=== PATIENT | female | born 1980 | race African-American/Black ===

== ENCOUNTER 2019-03-06 14:18 | Emergency (ER) | payer MEDICAID, OTHER ==
[~2019-03-06] VITALS: Ht 170.2 cm; Wt 57.6 kg
[~2019-03-06 14:18] MED LIST: KEFLEX500 MG ORAL
[2019-03-06] MEDS ORDERED: BENADRYL25 MG ORAL (14:26)
[2019-03-06 14:40] VITALS: BP 128/77
--- NOTE | 2019-03-06 14:40 | NUR ---
ED Nurse Note: pt walked in due to epicagstric pain started to get worse last night, pt stated she took many remedies for stomach pain but nothing helped. pt stated she was diagnosed with gastritis 5 years ago and now is the worse pain she ever felt on her stomach. seen by heidy bocanegra. will continue to monitor.
[2019-03-06] MEDS ORDERED: Isovue-300 100ml vial INJ PRN (14:45)
--- NOTE | 2019-03-06 14:50 | NUR ---
ED Nurse Note: with new order from heidy bocanegra. pt able to give urine sample and sent to lab. iv started on left ac. will continue to monitor.
--- NOTE | 2019-03-06 14:56 | NUR ---
ED Nurse Note: voice and data technician on bedside
--- NOTE | 2019-03-06 15:10 | NUR ---
ED Nurse Note: pt medicated as ordered. pt able to tolerate. will continue to monitor.
[2019-03-06 15:15] LABS: APPEARANCE,URINE CLEAR; BILIRUBIN, URINE NEGATIVE (NEGATIVE); COLOR,URINE BROWN; GLUCOSE, URINE (UA) NEGATIVE (NEGATIVE); KETONES,URINE 2+ (NEGATIVE); LEUKOCYTE ESTERASE ,URINE 1+ (NEGATIVE); NITRITE,URINE NEGATIVE (NEGATIVE); PH,URINE 9 (4.5-8.0); PROTEIN,URINE 2+ (NEGATIVE); UROBILINOGEN,URINE 4 MG/DL (0.0-1.0)
--- NOTE | 2019-03-06 15:16 | Diagnostic Imaging Report ---
Indication: Chest pain Technique: One view of the chest Comparison: 05/13/2005 Findings: Lungs and pleural spaces are clear. Heart size is normal. No significant interim change Impression: No acute process
--- NOTE | 2019-03-06 15:17 | Emergency Room Report ---
History of Present Illness General Chief Complaint: Abdominal Pain Source: Patient (Lupe Arellano) Present Illness HPI 38-year-old female with history of chronic heavy tobacco smoker x10 years as well as drinking every night for the past 2 years to treat her anxiety here complaining of 1 day of burning sensation in the epigastric and right upper quadrant region. Patient reports that she had fried noodles last night however denies it being spicy and acidic. Patient reports that she drinks at least 2 glasses of red wine every night and has been doing so for the past 2 years to treat her anxiety ever since her psychiatrist stopped giving her Ativan. Complains of nausea and acid reflux however denies loss of vomiting she reports that she consumed baking soda and water this morning in order to treat her symptoms and vomited immediately however denies bloody emesis denies diarrhea and constipation denies blood in stool. Denies fever and chills, recent travel , drug use, and does not take any daily medication other than herbal vitamins. Denies chest pain, shortness of breath, palpitation, dizziness and headache. Denies urinary symptoms and has regular menses. (Lupe Arellano) Allergies: Coded Allergies: No Known Allergies (Unverified , 07/08/16) Patient History Past Medical History: see triage record Past Surgical History: unable to obtain Pertinent Family History: none Social History: Reports: smoking - 8 cigars/day x 10 years, alcohol use - Alcohol consumption every night x2 years Last Menstrual Period: 02/10/19 Now: No Immunizations: UTD Reviewed Nursing Documentation: PMH: Agreed; PSxH: Agreed (Lupe Arellano) Nursing Documentation-PMH Past Medical History: No History, Except For Hx Gastrointestinal Problems: Yes - gastritis History Of Psychiatric Problem: Yes - anxiety, PTSD (Lupe Arellano) Review of Systems All Other Systems: negative except mentioned in HPI (Lupe Arellano) Physical Exam Vital Signs Date Time Temp Pulse Resp B/P (MAP) Pulse Ox O2 Delivery O2 Flow Rate FiO2 03/06/19 14:21 98.1 85 17 128/77 (94) 99 Room Air Sp02 EP Interpretation: reviewed, normal General Appearance: normal inspection, well appearing, no apparent distress, alert Eyes: left eye scleral icterus ENT: normal ENT inspection, hearing grossly normal, normal pharynx Neck: normal inspection, full range of motion, supple, thyroid normal Respiratory: normal inspection, chest non-tender, lungs clear, normal breath sounds, no rhonchi, no wheezing Gastrointestinal: no hernia, no pulsatile mass, distended, guarding - Epigastric and right upper quadrant however negative Álvarez's sign and negative McBurney's and Rovsing sign Rectal: deferred Genitourinary: no CVA tenderness Musculoskeletal: normal inspection, back normal Neurologic: normal inspection, alert, oriented x3, responsive Psychiatric: normal inspection, judgement/insight normal Skin: no rash, palpation normal, jaundice Lymphatic: normal inspection, no adenopathy (Lupe Arellano) Medical Decision Making PA Attestation All diagnoses and treatment plans were reviewed and discussed with my supervising physician Dr. Rey (Lupe Arellano) Diagnostic Impression: Primary Impression: Abdominal pain Qualified Codes: R10.13 - Epigastric pain Additional Impressions: Cirrhosis Qualified Codes: K70.31 - Alcoholic cirrhosis of liver with ascites Esophageal varices Qualified Codes: I85.10 - Secondary esophageal varices without bleeding Pancreatic lesion Alcohol abuse ER Course 38-year-old female with history of chronic heavy tobacco smoker x10 years as well as drinking every night for the past 2 years to treat her anxiety here complaining of 1 day of burning sensation in the epigastric and right upper quadrant region. Patient reports that she had fried noodles last night however denies it being spicy and acidic. Patient reports that she drinks at least 2 glasses of red wine every night and has been doing so for the past 2 years to treat her anxiety ever since her psychiatrist stopped giving her Ativan. Complains of nausea and acid reflux however denies loss of vomiting she reports that she consumed baking soda and water this morning in order to treat her symptoms and vomited immediately however denies bloody emesis denies diarrhea and constipation denies blood in stool. Denies fever and chills, recent travel , drug use, and does not take any daily medication other than herbal vitamins. Denies chest pain, shortness of breath, palpitation, dizziness and headache. Denies urinary symptoms and has regular menses. Ddx considered but are not limited to: appendicitis, cholycisitis, gastritis, gasthroentritis, UTI, pylonephritis, SBO, diverticulitis, influenza with GI manifestation, IA, Vital signs: are WNL, pt. is afebrile H&PE are most consistent with: Abdominal pain, cirrhosis, esophageal varices, pancreatic lesions, alcohol abuse ORDERS: abdominal CT, abdominal pain set, EKG, ED INTERVENTIONS: IV fluids, Zofran, Pepcid, thiamine Patient was admited with diagnosis of abdominal pain, cirrhosis, esophageal varices, pancreatic lesions, alcohol abuse under the supervision of Dr. Rey pt stable at time of admission EtOH of 29, elevated AST, alk phos, elevated PT and PTT (Lupe Arellano) ER Course Please see above note. Patient examined by me. Discussed the need for hospitalization with patient. I agree with treatment plan. Also thiamine and vitamin K added. Presented to Dr. Shah and accepted in transfer. (Eh Rey MD) EKG Diagnostic Results Rate: normal Rhythm: NSR ST Segments: no acute changes (Lupe rAellano) Chest X-Ray Diagnostic Results Chest X-Ray Diagnostic Results : Chest X-Ray Ordered: Yes # of Views/Limited/Complete: 1 View Indication: Chest Pain EP Interpretation: Yes PA Xray: Interpretation reviewed, by supervising MD, and agrees with findings. Interpretation: no consolidation, no effusion, no pneumothorax, no acute cardiopulmonary disease Impression: No acute disease Electronically Signed by: lupe WATSON Scribe Text no acute process (Lupe Arellano) Chest X-Ray Diagnostic Results : Electronically Signed by: Gilson Pollard documentation of Xray reviewed by me and is accurate, Eh Rey MD (Eh Rey MD) CT/MRI/US Diagnostic Results CT/MRI/US Diagnostic Results : Imaging Test Ordered: Abdominal CT pelvis with contrast Impression Cholelithiasis, evidence of portal venous hypertension, enlarged liver diffusely heterogeneous, diffuse attenuation lesions within pancreatic head and cystic lesions in the pancreas, slightly infiltration of the fat surrounding pancreatic head (Lupe Arellano) Last Vital Signs Date Time Temp Pulse Resp B/P (MAP) Pulse Ox O2 Delivery O2 Flow Rate FiO2 03/06/19 14:40 98.1 85 17 128/77 99 Room Air (Lupe Arellano) Last Vital Signs Date Time Temp Pulse Resp B/P (MAP) Pulse Ox O2 Delivery O2 Flow Rate FiO2 03/06/19 19:55 98.2 70 18 132/80 98 Room Air Status: improved (Eh Rey MD) Disposition: XFER SHT-TRM HOSP Condition: Serious Referrals: [facility],REFERR[facility] (PCP) Lupe Arellano Mar 06, 2019 15:17 Eh Rey MD Mar 06, 2019 17:36
[2019-03-06 15:20] LABS: HEMATOCRIT 37.5 % (37.0-47.0); HEMOGLOBIN 12.3 G/DL (12.0-16.0); MEAN CORPUSCULAR VOLUME 117 FL (80-99); PLATELET COUNT 102 K/UL (150-450); RED BLOOD COUNT 3.22 M/UL (4.20-5.40); RED CELL DISTRIBUTION WIDTH 13.4 % (11.6-14.8); WHITE BLOOD COUNT 7.7 K/UL (4.8-10.8)
[2019-03-06 15:25] LABS: ANION GAP 13 mmol/L (5-15); BLOOD UREA NITROGEN 3 mg/dL (7-18); CARBON DIOXIDE 29 MMOL/L (21-32); CHLORIDE 98 MMOL/L (98-107); CREATININE 0.6 MG/DL (0.55-1.30); POTASSIUM 3.1 MMOL/L (3.5-5.1); SODIUM 139 MMOL/L (136-145)
[2019-03-06 15:31] LABS: INR 1.2 (0.9-1.1)
[2019-03-06 15:40] LABS: ALANINE AMINOTRANSFERASE 26 U/L (12-78); ALBUMIN 3.9 G/DL (3.4-5.0); ALBUMIN/GLOBULIN RATIO 0.8 (1.0-2.7); ALKALINE PHOSPHATASE 187 U/L (46-116); ASPARTATE AMINO TRANSFERASE 165 U/L (15-37); BILIRUBIN,TOTAL 1.8 MG/DL (0.2-1.0); CKMB 0.6 NG/ML (0.0-3.6)
[2019-03-06 15:42] LABS: BILIRUBIN,DIRECT 0.7 MG/DL (0.0-0.3)
[2019-03-06 15:50] VITALS: BP 125/79
--- NOTE | 2019-03-06 16:40 | NUR ---
ED Nurse Note: pt went to ct with tech
--- NOTE | 2019-03-06 16:46 | NUR ---
ED Nurse Note: pt went back from ct with tech
[2019-03-06 17:30] VITALS: BP 120/80
[2019-03-06] MEDS ORDERED: Thiamine 100mg tab ORAL ONE (17:30)
--- NOTE | 2019-03-06 17:30 | Diagnostic Imaging Report ---
Clinical Indication: Abdominal pain, burning sensation in epigastric and right upper quadrant region Technique: Patient given oral contrast. IV administration nonionic contrast. Venous phase spiral acquisition obtained through the abdomen and pelvis. Multiplanar reconstructions were generated. Total dose length product 547.94 mGycm. CTDIvol(s) 9.91 mGy. Dose reduction achieved using automated exposure control Comparison: none Findings: The liver is diffusely enlarged. It is diffusely heterogeneous, with ill-defined nodular areas of slightly low-attenuation throughout. The pancreas demonstrates 2 adjacent low-attenuation lesions within the pancreatic head/uncinate. The larger of these is located more caudad, measures 3 cm in diameter, demonstrates slightly higher than fluid attenuation. The more cephalad measures 1.6 cm in diameter, is located immediately adjacent to the larger lesion, and demonstrates fluid attenuation. There is slight infiltration of the fat immediately adjacent to the pancreatic head and evidence of slight amount of phlegmon tracking caudad along the anterior right Gerota's fascia. The pancreatic body and tail demonstrate normal morphology. The gallbladder contains 2 small gallstones. There is a slight amount of pericholecystic fluid but the wall does not appear to be thickened. The common bile duct is upper slightly ectatic, measuring up to 7 mm in diameter, with slight tapering as noted traverses past the above-mentioned pancreatic lesions, which are located medial to it. Unusual varices are seen extending off of the inferior mesenteric vein, through the mesenteric root, and connecting to the inferior vena cava just below the left renal vein orifice. There is also generalized branch enlargement of the inferior mesenteric vein. The splenic and portal veins are patent. The spleen, adrenals, kidneys are unremarkable. The uterus and adnexal structures are unremarkable. No pelvic mass or adenopathy demonstrated. The appendix is not definitely identified, but no findings to suggest acute appendicitis are evident. Contrast is seen throughout the entirety of the small bowel, extends as far distally in the colon as the transverse colon. Small bowel loops are prominent. There is no small bowel wall thickening. There is congestion of the mesenteric root. No evidence of diverticulosis or diverticulitis. A small amount of free fluid is seen within the pelvis and over the dome of the liver. No free intraperitoneal gas. The included lung bases demonstrate minimal posterior dependent atelectatic changes. The bones are unremarkable. Impression: Slight infiltration of the fat surrounding the pancreatic head and evidence of a small amount of phlegmon tracking inferiorly from the pancreas. This could indicate isolated pancreatitis of the pancreatic head. Correlate with clinical and laboratory findings 2 low-attenuation lesions within the pancreatic head, one of which appears cystic, the other which is slightly higher than fluid attenuation. Main differential considerations include multi focal/multilobulated pancreatic neoplasm, pancreatic pseudocysts, or combination of both Enlarged liver, diffusely heterogeneous. Heterogeneity could be related to geographic fatty infiltration or multinodular cirrhotic change. The possibility of diffuse infiltration with neoplasm should also be considered. Evidence of portal venous hypertension, with unusual varices coming off of the inferior mesenteric vein and trace free intraperitoneal fluid as well as mesenteric congestion Cholelithiasis Mild ectasia of the extrahepatic bile ducts, could the baseline for this patient or could indicate mild extrinsic compression by the pancreatic abnormalities Findings discussed by phone with Dr. Rey in the emergency room at the time of interpretation The CT scanner at [facility] is accredited by the [employer] and the scans are performed using protocols designed to limit radiation exposure to as low as reasonably achievable to attain images of sufficient resolution adequate for diagnostic evaluation.
--- NOTE | 2019-03-06 17:40 | NUR ---
ED Nurse Note: ermd on bedside talking with pt regarding the plan to be admitted. pt verbalized understanding and agreed. pt given po med as ordered and able to tolerate. will continue to monitor.
[2019-03-06] MEDS ORDERED: Phytonadione 10 MG in D5W 55 ML IVPB ONE (19:00)
[2019-03-06] MEDS ORDERED: Phytonadione 10 mg/mL 1ml amp SUBQ SCH (19:00)
[2019-03-06 19:55] VITALS: BP 132/80
--- NOTE | 2019-03-06 19:55 | NUR ---
ER DISCHARGE NOTE: Patient is cleared to be transferred to PA comm per ERMD, pt is aox4, on room air, with stable vital signs. pt was given dc and prescription instructions, pt was able to verbalize understanding, pt id band removed. pt is able to ambulate with steady gait. pt took all belongings. [facility] here
--- NOTE | 2019-03-07 13:11 | Cardiology Report ---
APPROVED REPORT EKG Measurement Heart [id number] FL [id number] [id number] Normal sinus rhythm Prolonged QT Abnormal ECG
== END 2019-03-06 19:55 | disposition short-term general hospital (02) ==
LOC: EMR 14:46
DX: I85.10 Secondary esophageal varices without bleeding (principal); K70.31 Alcoholic cirrhosis of liver with ascites; K86.9 Disease of pancreas, unspecified; F10.10 Alcohol abuse, uncomplicated; F41.9 Anxiety disorder, unspecified; F17.210 Nicotine dependence, cigarettes, uncomplicated
CPT/HCPCS: 36415; 71045; 74177; 80053; 80307; 80329; 81003; 81025; 82248; 82553; 83690; 84439; 84443; 84481; 84484; 85007; 85025; 85610; 85730; 86850; 86900; 86901; 93005; 96361; 96374; 96375; 99285; J2405; J3430; Q9967; S0028; J8499

== ENCOUNTER 2020-08-08 01:43 | Inpatient (IN) | payer OTHER ==
[~2020-08-08] VITALS: Ht 165.1 cm; Wt 57.6 kg
[~2020-08-08 01:43] MED LIST changes: +BENADRYL25 MG ORAL
--- NOTE | 2020-08-08 01:43 | Emergency Room Report ---
History of Present Illness General Source: Patient, EMS Present Illness HPI 40-year-old female PMHx alcoholic cirrhosis, varices, portal hypertension, pancreatitis, tobacco abuse, anxiety, PTSD BIBA c/o diffuse abdominal pain x 4 days. Also endorses SOB, diffuse swelling especially in her legs, dyspnea on exertion, and fatigue. Also endorses non bloody diarrhea. Denies CP, nausea, vomiting, fever, melena, hematochezia, hematuria, dysuria, trauma, falls, back pain, REES, rash, or other symptoms. Last paracentesis was 10 days ago at [facility]. Prior to that had a paracentesis performed at [facility]. 2L ascites was removed each time, and negative for infection. Patient states she has not drank x 18 days. Prior to that, she drank 2 bottles of wine a day x 4 years. Denies hx of EGD or colonoscopy. The patient's symptoms were gradual onset, severity was moderate, duration since 4 days. Quality: aching Past medical history: alcoholic cirrhosis, varices, portal hypertension, pancreatitis, tobacco abuse, anxiety, PTSD Past surgical history: parcentesis Smoking: Denies Alcohol use: previous alcoholism, last drink was 18 days ago Drug use: Denies Review of systems: CONST: No fevers or chills, No night sweats PULMONARY: No productive cough, No shortness of breath CARDIAC: No chest pain, No palpitations GI: No vomiting, ++ diarrhea , No melena_or_BRBPR : No dysuria, No hematuria, No discharge NEURO: No new_focal_weakness_or_numbness, No confusion, No vision changes 14 point Review of Systems is otherwise negative except per HPI Physical Exam: GENERAL: Awake_alert_ nontoxic, no acute distress Spo2 100% on RA -normal EYES: Extraocular muscles are intact. Scleral icterus ENT: External nose and ear normal_in_appearance. Oropharynx clear. Head_atraumatic, Moist_oral_mucosa NECK: No JVD. No meningismus. No thyromegaly. Supple. Trachea midline RESP: Normal respiratory effort. Symmetric rise. No stridor. Clear_to_ausculta tion_No_rales_No_wheezes CARDIAC: Tachycardic rate and regular rhytm. +3 pitting edema bilateral LE. ABDOMEN: Soft. Diffusely distended. +Fluid wave. Large ascites. Nontender_No_rebound_or_guarding. Negative murphys sign. MSK: Normal muscle tone, without rigidity. Extremities without asymmetric deformity or swelling. No asterixis SKIN: Warm and dry. No visible cyanosis or pallor NEUROLOGIC: Alert, oriented x3. Motor_and_sensation_grossly_intact. No truncal ataxia. Gait_normal Psych: Normal mood and affect, normal judgment and insight - COORDINATION OF CARE Case was discussed with: Patient Any labs and imaging that were ordered were interpreted as part of the medical decision making: I did do a chart review and patient was previously here at [place] in 2019. CT showed pancreatic mass and varices. Patient was tranferred to outside hospital for further workup. Medical Decision Making/Plan: Differential diagnosis includes cholecystitis, choledocholithiasis, hepatitis, small bowel obstruction, volvulus, AAA, pancreatitis, atypical appendicitis, gastroparesis, gastritis, peptic ulcer disease, among others. Patient is well appearing with stable vital signs. Abdominal exam demonstrates large ascites, but is otherwise non peritoneal with no guarding or rebound. Afebrile. Low suspicion for SBP. She is diffusely anasarcic and edematous. Labs show several abnormalities. There is a leukocytosis of 15.3 as well as lactate elevation of 5. Bicarb is 20. Low suspicion for spontaneous bacterial peritonitis at this time as abdominal exam is nonperitoneal. Patient is furthermore found to have anemia, macrocytic. Also thrombocytopenia. INR is elevated at 2.3. She is noted to be in new onset renal failure and creatinine is 3.0. Lipase is also elevated at 604, consistent with an acute on chronic pancreatitis EKG shows sinus tachycardia without ischemia. CT scan shows small hiatal hernia, mild to moderate ascites, nonspecific gallbladder sludge, increasing pancreatic lesion, and enterocolitis. ED intervention included thiamine, folate, and Rocephin Morphine was given for pain control. Patient will likely require evaluation by GI, cardiology, and nephrology will also likely require large-volume therapeutic paracentesis in sterile environment by IR. She was given albumin here in the emergency department. No indication for emergent ER paracentesis at this time. The patient denies any bloody stool and has no pain out of proportion to exam, and no significant risk factors for mesenteric ischemia such as atrial fibrillation or severe PAD/PVD (peripheral arterial / vascular disease), thus definitive workup to rule out mesenteric ischemia was not pursued. Patient is afebrile, without any significant tenderness in the RUQ, and a negative [place] sign. The patients presentation does not appear to be consistent with acute cholecystitis and thus definitive imaging to rule it out was not pursued. The patients symptoms are not consistent with ACS (acute coronary syndrome), symptoms are not exertional, EKG without obvious ischemic change. I spoke with Dr. Kailash Mi, and reviewed the patients presentation, workup, results, and treatment. They will admit the patient for further care and evaluation, and assume care of the patient at this time. Allergies: Coded Allergies: No Known Allergies (Unverified , 07/08/16) Physical Exam Sp02 EP Interpretation: reviewed, normal Procedures Critical Care Time Critical Care Time Critical Care Statement Organ systems at risk include: [cardiac / circulatory/GI, metabolic Critical care performed for 45 minutes. Time is exclusive of separately billable procedures. Time includes: direct patient care, continuous monitoring and multiple patient reassessment, coordination of patient care, review of patient's medical records, medical consultation, family consultation regarding treatment decisions and documentation of patient care. Medical Decision Making Diagnostic Impression: Primary Impression: Abdominal pain Additional Impressions: Ascites Alcoholic cirrhosis Scleral icterus History of alcohol abuse Anemia, macrocytic Thrombocytopenia Lactic acidosis Metabolic acidosis Renal failure Pancreatitis Enterocolitis Hiatal hernia Gallbladder sludge Pancreatic lesion EKG Diagnostic Results Troponin ordered: Yes When was troponin ordered?: Aug 08, 2020 [facility] 12-lead EKG (interpreted by ) Time: 0156 Indication: Rhythm analysis Tracing visualized and Interpreted by me. Rhythm: sinus tachycardia Rate: 104 bpm QTc: 499 Morphology: No_significant_ST_elevations_or_depressions, No STEMI Impression: sinus tachycardia Rhythm Strip Diag. Results Rhythm Strip Time: 02:13 EP Interpretation: yes Rate: 100 Rhythm: no PVC's, no ectopy Chest X-Ray Diagnostic Results Chest X-Ray Diagnostic Results : [facility] Chest X-Ray: Views: [ 1 ] view(s) Indication: Shortness of breath Findings: Normal heart size. Mediastinum normal. No infiltrate. Impression: Poor inspiratory effort. Elevated right hemidiaphragm The X-ray(s) were independently viewed and interpreted contemporaneously Electronically signed by , Olga Marie, DO CT/MRI/US Diagnostic Results CT/MRI/US Diagnostic Results : Impression CT Abdomen and Pelvis Without Intravenous Contrast CLINICAL HISTORY: PAIN TECHNIQUE: Axial computed tomography images of the abdomen and pelvis without intravenous contrast. CTDI is 6.2 mGy and DLP is 313.9 mGy-cm. One or more of the following dose reduction techniques were used: automated exposure control, adjustment of the mA and/or kV according to patient size, use of iterative reconstruction technique. COMPARISON: 03/06/19 FINDINGS: Lung bases: Bilateral lower lobe airspace disease. Mediastinum: Small hiatal hernia. ABDOMEN: Liver: Hepatomegaly. Gallbladder and bile ducts: Cholelithiasis/sludge. Mildly distended gallbladder, nonspecific. No ductal dilation. Pancreas: Absent IV contrast limit evaluation and assessment of size of the pancreatic lesion. There is heterogeneous mass in the head/uncinate process of the pancreas measuring up to 4.7 cm. This appears increased in size. Prominent tail of the pancreas is again noted. Spleen: Unremarkable. No splenomegaly. Adrenals: Unremarkable. No mass. Kidneys and ureters: Unremarkable. No obstructing stones. No hydronephrosis. Stomach and bowel: Thickening of the colonic wall, nonspecific and may partly reflect reactive change. Recommend clinical correlation and follow-up to exclude developing colitis. This is most pronounced in the ascending colon. Multiple fluid-filled dilated small bowel loops with scattered air-fluid levels which may reflect ileus/enteritis. Recommend clinical correlation and follow-up to exclude partial developing loose obstruction in the distal small bowel. Absent IV and oral contrast as well as diffuse ascites and soft tissue stranding limit evaluation. PELVIS: Appendix: No findings to suggest acute appendicitis. Bladder: Unremarkable. No stones. Reproductive: Unremarkable as visualized. ABDOMEN and PELVIS: Intraperitoneal space: Diffuse soft tissue stranding in the intra- abdominal fat and mesentery, nonspecific. No free air. Moderate to large free fluid in the abdomen. Bones/joints: No acute fracture. No dislocation. Soft tissues: Mild anasarca. Vasculature: Unremarkable. No abdominal aortic aneurysm. Lymph nodes: Prominent inguinal lymph nodes, probably reactive. IMPRESSION: 1. Absent IV and oral contrast limit evaluation. Mild to moderate ascites 2. Sludge/gallstones and distended gallbladder, nonspecific. 3. Follow-up HIDA scan could be obtained to exclude developing acute cholecystitis as indicated. 4. Pancreatic lesion/abnormality, which appears increased in size. Although focal pancreatitis/cystic/necrotic change can give this appearance, malignancy is difficult to exclude. 5. No free air. 6. Findings which may reflect diffuse enterocolitis. Recommend clinical correlation and follow-up to exclude partial distal small bowel obstruction. 7. Hepatomegaly. Dictated By: Brooke Cobian MD Reevaluation Time: 03:00 Status: improved Disposition: ADMITTED INPATIENT Admit Decision Time: 02:14 Condition: Stable Olga Marie D.O. Aug 08, 2020 01:43
[2020-08-08 01:45] VITALS: BP 113/40
--- NOTE | 2020-08-08 01:45 | NUR ---
ED Nurse Note: Patient brought in by ambulance [id number] from home d/t abdominal pain secondary to chronic ascites, describes pain as "pressure" 04/08. Patient aao x 4 and ambulatory with weak gait. Patient hx of liver cirrhosis, reports she had a parascentesis about 1 week ago and 2 months ago prior. Patient abdomen noted to be firm, round, and distended. Patient changed into gown and placed on pvc monitor. IV on Right forearm 20g established, blood drawn and urine collected. No acute distress noted.
[2020-08-08] MEDS ORDERED: Omnipaque-300 100ml vial INJ PRN (02:00)
[2020-08-08] MEDS ORDERED: Thiamine 100mg tab ORAL ONE (02:00)
[2020-08-08] MEDS ORDERED: Lidocaine 1% Plain 30 ml INJ ONE (02:00)
[2020-08-08] MEDS ORDERED: Morphine Sulfate 2mg/ml Inj(IV/IM USE ONLY) IVP ONE ×2 (02:00→05:00)
[2020-08-08] MEDS ORDERED: cefTRIAXone 1 GM in NS 55 ML IVPB ONE (02:15)
[2020-08-08 02:22] LABS: HEMATOCRIT 26.2 % (37.0-47.0); HEMOGLOBIN 9.2 G/DL (12.0-16.0); MEAN CORPUSCULAR VOLUME 103 FL (80-99); PLATELET COUNT 71 K/UL (150-450); RED BLOOD COUNT 2.54 M/UL (4.20-5.40); RED CELL DISTRIBUTION WIDTH 15.5 % (11.6-14.8); WHITE BLOOD COUNT 15.3 K/UL (4.8-10.8)
--- NOTE | 2020-08-08 02:38 | NUR ---
ED Nurse Note: xray at bedside
[2020-08-08 02:39] LABS: INR 2.3 (0.9-1.1)
[2020-08-08 02:40] LABS: CALCIUM 8.2 MG/DL (8.5-10.1); POTASSIUM 4.5 MMOL/L (3.5-5.1)
[2020-08-08 02:54] LABS: ALBUMIN 1.9 G/DL (3.4-5.0); ALBUMIN/GLOBULIN RATIO 0.3 (1.0-2.7); BILIRUBIN,TOTAL 15.9 MG/DL (0.2-1.0)
[2020-08-08 03:07] LABS: BILIRUBIN,DIRECT 12.6 MG/DL (0.0-0.3)
[2020-08-08 03:15] LABS: APPEARANCE,URINE CLOUDY; COLOR,URINE YELLOW; PHOSPHORUS 3.6 MG/DL (2.5-4.9)
[2020-08-08 03:16] LABS: BILIRUBIN, URINE 3+ (NEGATIVE); GLUCOSE, URINE (UA) NEGATIVE (NEGATIVE); KETONES,URINE 1+ (NEGATIVE); LEUKOCYTE ESTERASE ,URINE 1+ (NEGATIVE); NITRITE,URINE POSITIVE (NEGATIVE); PH,URINE 5 (4.5-8.0); PROTEIN,URINE 2+ (NEGATIVE); UROBILINOGEN,URINE 4 MG/DL (0.0-1.0)
--- NOTE | 2020-08-08 04:45 | Diagnostic Imaging Report ---
EXAM: CT Abdomen and Pelvis Without Intravenous Contrast CLINICAL HISTORY: PAIN TECHNIQUE: Axial computed tomography images of the abdomen and pelvis without intravenous contrast. CTDI is 6.2 mGy and DLP is 313.9 mGy-cm. One or more of the following dose reduction techniques were used: automated exposure control, adjustment of the mA and/or kV according to patient size, use of iterative reconstruction technique. COMPARISON: 03/06/19 FINDINGS: Lung bases: Bilateral lower lobe airspace disease. Mediastinum: Small hiatal hernia. ABDOMEN: Liver: Hepatomegaly. Gallbladder and bile ducts: Cholelithiasis/sludge. Mildly distended gallbladder, nonspecific. No ductal dilation. Pancreas: Absent IV contrast limit evaluation and assessment of size of the pancreatic lesion. There is heterogeneous mass in the head/uncinate process of the pancreas measuring up to 4.7 cm. This appears increased in size. Prominent tail of the pancreas is again noted. Spleen: Unremarkable. No splenomegaly. Adrenals: Unremarkable. No mass. Kidneys and ureters: Unremarkable. No obstructing stones. No hydronephrosis. Stomach and bowel: Thickening of the colonic wall, nonspecific and may partly reflect reactive change. Recommend clinical correlation and follow-up to exclude developing colitis. This is most pronounced in the ascending colon. Multiple fluid-filled dilated small bowel loops with scattered air-fluid levels which may reflect ileus/enteritis. Recommend clinical correlation and follow-up to exclude partial developing loose obstruction in the distal small bowel. Absent IV and oral contrast as well as diffuse ascites and soft tissue stranding limit evaluation. PELVIS: Appendix: No findings to suggest acute appendicitis. Bladder: Unremarkable. No stones. Reproductive: Unremarkable as visualized. ABDOMEN and PELVIS: Intraperitoneal space: Diffuse soft tissue stranding in the intra- abdominal fat and mesentery, nonspecific. No free air. Moderate to large free fluid in the abdomen. Bones/joints: No acute fracture. No dislocation. Soft tissues: Mild anasarca. Vasculature: Unremarkable. No abdominal aortic aneurysm. Lymph nodes: Prominent inguinal lymph nodes, probably reactive. IMPRESSION: 1. Absent IV and oral contrast limit evaluation. Mild to moderate ascites 2. Sludge/gallstones and distended gallbladder, nonspecific. 3. Follow-up HIDA scan could be obtained to exclude developing acute cholecystitis as indicated. 4. Pancreatic lesion/abnormality, which appears increased in size. Although focal pancreatitis/cystic/necrotic change can give this appearance, malignancy is difficult to exclude. 5. No free air. 6. Findings which may reflect diffuse enterocolitis. Recommend clinical correlation and follow-up to exclude partial distal small bowel obstruction. 7. Hepatomegaly.
--- NOTE | 2020-08-08 04:55 | NUR ---
ED Nurse Note: Report given to NOAH WISE.
[2020-08-08] MEDS ORDERED: MELATONIN 10 M1 EACH ORAL (05:08)
[2020-08-08] MEDS ORDERED: NAPROXEN500 M2 ORAL (05:08)
[2020-08-08] MEDS ORDERED: FOLIC ACID1 MG ORAL (05:08)
[2020-08-08] MEDS ORDERED: POTASSIUM99 M3 PO (05:08)
[2020-08-08] MEDS ORDERED: MAGNESIUM100 MG PO (05:08)
[2020-08-08] MEDS ORDERED: L-THEANINE200 MG PO (05:08)
[2020-08-08] MEDS ORDERED: FERROUS SULFAT325 MG ORAL (05:08)
[2020-08-08] MEDS ORDERED: OMEPRAZOLE40 M1 ORAL (05:08)
[2020-08-08] MEDS ORDERED: SPIRONOLACTONE25 MG ORAL (05:08)
--- NOTE | 2020-08-08 05:15 | NUR ---
ED Nurse Note: Patient's home medications stores in med locker in ED, bag #[id number]
--- NOTE | 2020-08-08 05:20 | NUR ---
NURSE NOTES: Received patient and report for NOAH Nam. Pt AO x 4, able to communicate, responds well to questions and discussion, afebrile, has no respiratory distress noted. On RA saturating at 100%. With right FA 20g intact, patent and asymptomatic.Needs were attended. Pt not in pain for now as verbalized during interview. Assessment done and noted. Call light within reach. bed rails are up and wheels are locked. Continue to monitor the patient.
--- NOTE | 2020-08-08 05:20 | NUR ---
TRANSFER TO FLOOR: Patient transferred to SDU as ordered, per ERMD. Report given to NOAH WISE. Patient transported via gurney on visitor services technician in stable condition accompanied by RN and utility technician.
--- NOTE | 2020-08-08 05:50 | NUR ---
NURSE NOTES: NURSE NOTES: Placed a call to Dr Mi's exchange, spoke to Krystian ( phone support), made him aware that we need admission orders for Dr Mi's new admission patient. Awaiting for response
--- NOTE | 2020-08-08 07:15 | NUR ---
NURSE NOTES: Received a call from Dr Bell. Paracentesis and npo orders noted and carried out. Endorsed to AM nurse to get consent for paracentesis. Continue to monitor the patient
--- NOTE | 2020-08-08 07:20 | NUR ---
NURSE HAND-OFF REPORT: Important Events on Shift: new admission Patient Status:stable Diet: npo Pending Orders: n Pending Results/Labs:n Pending MD notification:n Latest Vital Signs: Temperature 97.9 , Pulse 104 , B/P 115 /54 , Respiratory Rate 17 , O2 SAT 99 , Room Air, O2 Flow Rate . Vital Sign Comment: n EKG Rhythm: Sinus Tachycardia Rhythm change?: MD Notified?: - MD Response: Latest Hurt Fall Score: 45 Fall Risk: High Risk Safety Measures: Call light Within Reach, Bed Alarm Zone 2, Side Rails Side Rails x2, Bed position Low and Locked. Fall Precautions: Yellow Socks Report given to Sabina Boswell. Endorsed to ff up with DR Mi regarding Admission orders. Still awaiting for call back
--- NOTE | 2020-08-08 07:25 | NUR ---
NURSE NOTES:Handoff received from BILLIE. Patient resting in bed,awake alert and able to make needs known, no acute signs of distress noted, patient is on room air saturating at 98%, surveillance monitor leads changed as patient was off monitor, HR is 96 ST. Patient informed to use call light for assistance and not to get up alone. Right FA IV site is clean dry and intact, saline locked as awaiting admission orders. bed in the low and locked position with call light within reach, Will follow plan of care.
--- NOTE | 2020-08-08 07:33 | NUR ---
NURSE NOTES: Placed a call to Dr Mi's exchange, spoke to Selin ( phone support), made him aware that we need admission orders for Dr Mi's new admission patient. Awaiting for response. Endorsed to AM nurse to ff up.
[2020-08-08] MEDS ORDERED: D5NS 1,000 ML IV SCH (07:45)
[2020-08-08 08:00] VITALS: BP 106/57
[2020-08-08] MEDS: Pantoprazole Inj IVP SCH ×2 (08:31→21:06)
--- NOTE | 2020-08-08 08:34 | Consultation ---
History of Present Illness General Date patient seen: Aug 08, 2020 Time patient seen: 13:09 Chief Complaint: Abdominal Pain Referring physician: Dr. Mi Reason for Consultation: R/o sepsis Present Illness HPI 40yo F with alcoholic cirrhosis, varices, portal HTN, tobacco use, PTSD, who p/w diffuse abd pain x4 days. ID c/s to r/o sepsis, r/o SBP. Pt AF in house, leukocytosis to 15. Pt is minimally interactive, lethargic, have to shake to awaken. Denies any fevers/chills, NVD, resp complaints. Just abd distension and discomfort. Denies allergies to abx Per ED notes. C/o SOB, diffuse swelling especially in her legs, dyspnea on exertion, and fatigue. Also endorses non bloody diarrhea. Last paracentesis was 10 days ago at [facility]. Prior to that had a paracentesis performed at [facility]. 2L ascites was removed each time, and negative for infection. Patient states she has not drank x 18 days. Prior to that, she drank 2 bottles of wine a day x 4 years. Denies hx of EGD or colonoscopy. Allergies: Coded Allergies: No Known Allergies (Unverified , 07/08/16) Medication History Scheduled Cephalexin* (Keflex*), 500 MG ORAL TID Ferrous Sulfate* (Ferrous Sulfate*), 325 MG ORAL DAILY, (Reported) Folic Acid* (Folic Acid*), 1 MG ORAL DAILY, (Reported) Naproxen* (Naproxen*), 500 MG ORAL TWICE A DAY, (Reported) Omeprazole (Omeprazole), 40 MG ORAL DAILY, (Reported) Spironolactone* (Aldactone*), 25 MG ORAL DAILY, (Reported) Scheduled PRN Diphenhydramine Hcl* (Benadryl*), 25 MG ORAL Q6H PRN for Itching, (Reported) Melatonin (Melatonin 10 Mg Tablet), 1 TAB ORAL BEDTIME PRN for Insomnia, (Reported) Miscellaneous Medications Magnesium Amino Acid Chelate (Magnesium), 200 MG PO, (Reported) Potassium Gluconate (Potassium), 99 MG PO, (Reported) Theanine (l-Theanine), 200 MG PO, (Reported) Patient History Limited by: medical condition Healthcare decision maker Resuscitation status Advanced Directive on File Review of Systems ROS Narrative 10-point ROS neg except as noted in HPI Physical Exam Physical Exam Narrative Gen: NAD HEENT: NCAT Pulm: BL chest rise on RA Abd: Distended and tense, minimally TTP Ext: No c/c Skin: No visible rashes Neuro: Awake but minimally interactive, lethargic Last 24 Hour Vital Signs Date Time Temp Pulse Resp B/P (MAP) Pulse Ox O2 Delivery O2 Flow Rate FiO2 08/08/20 05:40 Room Air 08/08/20 05:20 97.9 104 17 115/54 99 Room Air 08/08/20 02:49 95.7 08/08/20 01:45 103 20 Room Air 08/08/20 01:45 95.7 103 20 113/40 98 Room Air 08/08/20 01:39 95.7 111 18 119/64 (82) 100 Room Air Intake and Output 08/07/20 08/08/20 19:00 07:00 Intake Total 55 ml Balance 55 ml Intake Oral 0 ml IV Total 55 ml # Voids 1 Laboratory Tests Test 08/08/20 02:00 08/08/20 03:55 White Blood Count 15.3 K/UL (4.8-10.8) H Red Blood Count 2.54 M/UL (4.20-5.40) L Hemoglobin 9.2 G/DL (12.0-16.0) L Hematocrit 26.2 % (37.0-47.0) L Mean Corpuscular Volume 103 FL (80-99) H Mean Corpuscular Hemoglobin 36.3 PG (27.0-31.0) H Mean Corpuscular Hemoglobin Concent 35.3 G/DL (32.0-36.0) Red Cell Distribution Width 15.5 % (11.6-14.8) H Platelet Count 71 K/UL (150-450) L Mean Platelet Volume 9.7 FL (6.5-10.1) Neutrophils (%) (Auto) % (45.0-75.0) Lymphocytes (%) (Auto) % (20.0-45.0) Monocytes (%) (Auto) % (1.0-10.0) Eosinophils (%) (Auto) % (0.0-3.0) Basophils (%) (Auto) % (0.0-2.0) Prothrombin Time 23.4 SEC (9.30-11.50) H Prothromb Time International Ratio 2.3 (0.9-1.1) H Activated Partial Thromboplast Time 54 SEC (23-33) H Urine Color Yellow Urine Appearance Cloudy Urine pH 5 (4.5-8.0) Urine Specific [place] 1.020 (1.005-1.035) Urine Protein 2+ (NEGATIVE) H Urine Glucose (UA) Negative (NEGATIVE) Urine Ketones 1+ (NEGATIVE) H Urine Blood 2+ (NEGATIVE) H Urine Nitrite Positive (NEGATIVE) H Urine Bilirubin 3+ (NEGATIVE) H Urine Ictotest Positive (NEGATIVE) Urine Urobilinogen 4 MG/DL (0.0-1.0) H Urine Leukocyte Esterase 1+ (NEGATIVE) H Urine RBC 2-4 /HPF (0 - 2) H Urine WBC 15-20 /HPF (0 - 2) H Urine Squamous Epithelial Cells Many /LPF (NONE/OCC) H Urine Bacteria Many /HPF (NONE) H Sodium Level 123 MMOL/L (136-145) L Potassium Level 4.5 MMOL/L (3.5-5.1) Chloride Level 90 MMOL/L (98-107) L Carbon Dioxide Level 20 MMOL/L (21-32) L Anion Gap 13 mmol/L (5-15) Blood Urea Nitrogen 30 mg/dL (7-18) H Creatinine 3.0 MG/DL (0.55-1.30) H Estimat Glomerular Filtration Rate 21.0 mL/min (>60) Glucose Level 100 MG/DL (74-106) Lactic Acid Level 5.80 mmol/L (0.4-2.0) H 5.20 mmol/L (0.66-2.22) H Calcium Level 8.2 MG/DL (8.5-10.1) L Phosphorus Level 3.6 MG/DL (2.5-4.9) Magnesium Level 2.5 MG/DL (1.8-2.4) H Total Bilirubin 15.9 MG/DL (0.2-1.0) H Direct Bilirubin 12.6 MG/DL (0.0-0.3) H Aspartate Amino Transf (AST/SGOT) 241 U/L (15-37) H Alanine Aminotransferase (ALT/SGPT) 93 U/L (12-78) H Alkaline Phosphatase 187 U/L (46-116) H Troponin I 0.001 ng/mL (0.000-0.056) Pro-B-Type Natriuretic Peptide 791 pg/mL (0-125) H Total Protein 7.8 G/DL (6.4-8.2) Albumin 1.9 G/DL (3.4-5.0) L Globulin 5.9 g/dL Albumin/Globulin Ratio 0.3 (1.0-2.7) L Lipase 604 U/L (73-393) H Human Chorionic Gonadotropin, Quant < 1 mIU/mL (1-6) L Serum Alcohol < 3 mg/dL Height (Feet): 5 Height (Inches): 5.00 Weight (Pounds): 127 Medications Current Medications Medications (Trade) Dose Ordered Sig/Baldemar Route PRN Reason Start Time Stop Time Status Last Admin Dose Admin Dextrose/Sodium Chloride 1,000 ml @ 60 mls/hr [id number] IV 08/08/20 07:45 09/07/20 07:44 Folic Acid (Folate) 1 mg DAILY ORAL 08/08/20 09:00 09/07/20 08:59 Iohexol (OMNIPAQUE-300 100ml) 100 ml NOW PRN INJ Radiology Procedure 08/08/20 02:00 08/10/20 01:59 Pantoprazole (Protonix) 40 mg EVERY 12 HOURS IVP 08/08/20 09:00 09/07/20 08:59 Assessment/Plan Assessment/Plan: 40yo F with: Afebrile Leukocytosis to 15 Massive ascites R/o SBP 12/10 BCx p UA 15-20 WBC, UCx p Alcoholic cirrhosis c/b ascites, varices, portal HTN Recurrent need for paracenteses Thrombocytopenia to 70s Elevated LFTs, AST>ALT ILEANA on CKD, Cr 3.0 Plan: Cont CTX 1g daily #1 empiric COVID PCR screening test (or rapid test if able) R/o SBP from ascites - send fluid for cell count and diff, bacterial cx F/u BCx, UCx 12/10 Trend WBC Trend LFTs Monitor CBC/CMP Monitor temp curve, hemodynamics Monitor resp status D/w RN Thank you for this consult. [facility] will continue to follow. Keesha Ramirez M.D. Aug 08, 2020 08:33
--- NOTE | 2020-08-08 08:57 | NUR ---
NURSE NOTES: Dr. Bell called to inform nurse that he is cancelling paracentesis order.
--- NOTE | 2020-08-08 10:21 | General Progress Note ---
Subjective ROS Limited/Unobtainable: Yes Allergies: Coded Allergies: No Known Allergies (Unverified , 07/08/16) Objective Last 24 Hour Vital Signs Date Time Temp Pulse Resp B/P (MAP) Pulse Ox O2 Delivery O2 Flow Rate FiO2 08/08/20 08:00 Room Air 08/08/20 05:40 Room Air 08/08/20 05:20 97.9 104 17 115/54 99 Room Air 08/08/20 02:49 95.7 08/08/20 01:45 103 20 Room Air 08/08/20 01:45 95.7 103 20 113/40 98 Room Air 08/08/20 01:39 95.7 111 18 119/64 (82) 100 Room Air Intake and Output 08/07/20 08/08/20 19:00 07:00 Intake Total 55 ml Balance 55 ml Intake Oral 0 ml IV Total 55 ml # Voids 1 Laboratory Tests 08/08/20 02:00: White Blood Count 15.3H, Red Blood Count 2.54L, Hemoglobin 9.2L, Hematocrit 26.2L, Mean Corpuscular Volume 103H, Mean Corpuscular Hemoglobin 36.3H, Mean Corpuscular Hemoglobin Concent 35.3, Red Cell Distribution Width 15.5H, Platelet Count 71L, Mean Platelet Volume 9.7, Neutrophils (%) (Auto) , Lymphocytes (%) (Auto) , Monocytes (%) (Auto) , Eosinophils (%) (Auto) , Basophils (%) (Auto) , Prothrombin Time 23.4H, Prothromb Time International Ratio 2.3H, Activated Partial Thromboplast Time 54H, Urine Color Yellow, Urine Appearance Cloudy, Urine pH 5, Urine Specific [place] 1.020, Urine Protein 2+H, Urine Glucose (UA) Negative, Urine Ketones 1+H, Urine Blood 2+H, Urine Nitrite PositiveH, Urine Bilirubin 3+H, Urine Ictotest Positive, Urine Urobilinogen 4H, Urine Leukocyte Esterase 1+H, Urine RBC 2-4H, Urine WBC 15-20H, Urine Squamous Epithelial Cells ManyH, Urine Bacteria ManyH, Sodium Level 123L, Potassium Level 4.5, Chloride Level 90L, Carbon Dioxide Level 20L, Anion Gap 13, Blood Urea Nitrogen 30H, Creatinine 3.0H, Estimat Glomerular Filtration Rate 21.0, Glucose Level 100, Lactic Acid Level 5.80H, Calcium Level 8.2L, Phosphorus Level 3.6, Magnesium Level 2.5H, Total Bilirubin 15.9H, Direct Bilirubin 12.6H, Aspartate Amino Transf (AST/SGOT) 241H, Alanine Aminotransferase (ALT/SGPT) 93H, Alkaline Phosphatase 187H, Troponin I 0.001, Pro-B-Type Natriuretic Peptide 791H, Total Protein 7.8, Albumin 1.9L, Globulin 5.9, Albumin/Globulin Ratio 0.3L, Lipase 604H, Human Chorionic Gonadotropin, Quant < 1L, Serum Alcohol < 3 08/08/20 03:55: Lactic Acid Level 5.20H 08/08/20 09:50: White Blood Count [Pending], Red Blood Count [Pending], Hemoglobin [Pending], Hematocrit [Pending], Mean Corpuscular Volume [Pending], Mean Corpuscular Hemoglobin [Pending], Mean Corpuscular Hemoglobin Concent [Pending], Red Cell Distribution Width [Pending], Platelet Count [Pending], Mean Platelet Volume [Pending], Neutrophils (%) (Auto) [Pending], Lymphocytes (%) (Auto) [Pending], Monocytes (%) (Auto) [Pending], Eosinophils (%) (Auto) [Pending], Basophils (%) (Auto) [Pending] Height (Feet): 5 Height (Inches): 5.00 Weight (Pounds): 127 General Appearance: alert EENT: normal ENT inspection Neck: supple Cardiovascular: normal rate Respiratory/Chest: decreased breath sounds Abdomen: hypoactive bowel sounds, distended Extremities: non-tender Assessment/Plan Problem List: (1) History of alcohol abuse ICD Codes: F10.11 - Alcohol abuse, in remission SNOMED: 758377493 (2) Abdominal pain ICD Codes: R10.9 - Unspecified abdominal pain SNOMED: 68969643 (3) Thrombocytopenia ICD Codes: D69.6 - Thrombocytopenia, unspecified SNOMED: 331161535 (4) Ascites ICD Codes: R18.8 - Other ascites SNOMED: 337351527 (5) Anemia, macrocytic ICD Codes: D53.9 - Nutritional anemia, unspecified SNOMED: 13574513 (6) Gallbladder sludge ICD Codes: K82.8 - Other specified diseases of gallbladder SNOMED: 39963790, 51233721 (7) Pancreatic lesion ICD Codes: K86.9 - Disease of pancreas, unspecified SNOMED: 7344423 (8) Hiatal hernia ICD Codes: K44.9 - Diaphragmatic hernia without obstruction or gangrene SNOMED: 38608240, 59562649 Assessment/Plan: paracentesis albumin lasix and aldactone tumor markers MRI post paracentesis repeat labs vit K Nelson Bell MD Aug 08, 2020 10:21
[2020-08-08 10:22] LABS: HEMATOCRIT 25.8 % (37.0-47.0); HEMOGLOBIN 9.4 G/DL (12.0-16.0); MEAN CORPUSCULAR VOLUME 101 FL (80-99); PLATELET COUNT 77 K/UL (150-450); RED BLOOD COUNT 2.56 M/UL (4.20-5.40); RED CELL DISTRIBUTION WIDTH 15.2 % (11.6-14.8); WHITE BLOOD COUNT 9.2 K/UL (4.8-10.8)
[2020-08-08] MEDS ORDERED: Phytonadione 1 MG in D5W 55 ML IVPB ONE (11:30)
[2020-08-08 11:31] LABS: ANION GAP 12 mmol/L (5-15); CARBON DIOXIDE 20 MMOL/L (21-32); CHLORIDE 91 MMOL/L (98-107); POTASSIUM 4.7 MMOL/L (3.5-5.1); SODIUM 123 MMOL/L (136-145)
[2020-08-08 12:00] VITALS: BP 109/64
[2020-08-08 12:23] LABS: ALANINE AMINOTRANSFERASE 84 U/L (12-78); ALBUMIN 2.2 G/DL (3.4-5.0); ALBUMIN/GLOBULIN RATIO 0.4 (1.0-2.7); ALKALINE PHOSPHATASE 166 U/L (46-116); ASPARTATE AMINO TRANSFERASE 216 U/L (15-37); BILIRUBIN,TOTAL 15.7 MG/DL (0.2-1.0); BLOOD UREA NITROGEN 32 mg/dL (7-18); CALCIUM 8.4 MG/DL (8.5-10.1); CHOLESTEROL < 50 MG/DL (< 200); CREATINE KINASE 41 U/L (26-308); FERRITIN 305 NG/ML (8-388); HDL CHOLESTEROL 15 MG/DL (40-60); PHOSPHORUS 4.1 MG/DL (2.5-4.9); TRIGLYCERIDES 53 MG/DL (30-150)
[2020-08-08 12:24] LABS: % IRON SATURATION 81 % (15-50); IRON 89 ug/dL (50-175); TOTAL IRON BINDING CAPACITY 110 ug/dL (250-450)
[2020-08-08 12:25] LABS: BILIRUBIN,DIRECT 11.9 MG/DL (0.0-0.3); GAMMA GLUTAMYL TRANSPEPTIDASE 201 U/L (5-85)
--- NOTE | 2020-08-08 13:37 | NUR ---
NURSE NOTES:Dr Mi rounded on patient. Ordered full code status and SCD's for DVT prophylaxis.
--- NOTE | 2020-08-08 13:41 | Diagnostic Imaging Report ---
Indication: Reason For Exam: SOB Technique: Single AP view of the chest. Comparison: Chest radiograph Dated 03/06/2019 Findings: The cardiomediastinal silhouette is unchanged when accounting for differences in projection technique. There are low lung volumes, limiting evaluation of the lung parenchyma. Streaky bibasilar airspace opacities are noted. No pneumothorax or pleural effusion. No acute osseous abnormality. IMPRESSION: Streaky bibasilar airspace opacities likely representing subsegmental atelectasis given low lung volumes, but pneumonia should be excluded clinically.
--- NOTE | 2020-08-08 14:01 | Consultation ---
Consult Note Consult Note I am asked to evaluate the patient at the request of for renal failure and electrolyte imbalances Patient seen in room 234 Patient lethargic, poor historian Data reviewed Emergency room note: 40-year-old female PMHx alcoholic cirrhosis, varices, portal hypertension, pancreatitis, tobacco abuse, anxiety, PTSD BIBA c/o diffuse abdominal pain x 4 days. Also endorses SOB, diffuse swelling especially in her legs, dyspnea on exertion, and fatigue. Also endorses non bloody diarrhea. Denies CP, nausea, vomiting, fever, melena, hematochezia, hematuria, dysuria, trauma, falls, back pain, REES, rash, or other symptoms. Last paracentesis was 10 days ago at [facility]. Prior to that had a paracentesis performed at [facility]. 2L ascites was removed each time, and negative for infection. Patient states she has not drank x 18 days. Prior to that, she drank 2 bottles of wine a day x 4 years. Denies hx of EGD or colonoscopy. The patient's symptoms were gradual onset, severity was moderate, duration since 4 days. Quality: aching Past medical history: alcoholic cirrhosis, varices, portal hypertension, pancreatitis, tobacco abuse, anxiety, PTSD Past surgical history: parcentesis Smoking: Denies Alcohol use: previous alcoholism, last drink was 18 days ago Drug use: Denies Vital Signs Date Time Temp Pulse Resp B/P (MAP) Pulse Ox O2 Delivery O2 Flow Rate FiO2 08/08/20 01:39 95.7 111 18 119/64 (82) 100 Room Air 08/10/20 00:00 2.0 Physical Exam Gen: NAD HEENT: NCAT Pulm: BL chest rise on RA Abd: Distended and tense, minimally TTP Ext: No c/c Skin: No visible rashes Neuro: Awake but minimally interactive, lethargic . Assessment/Plan Acute on chronic renal failure Hyponatremia secondary to third spacing as a result of cirrhosis, ascites Jaundice Anemia, thrombocytopenia Pancreatitis, enterocolitis UTI, sepsis Continue per GI Perez catheter Urine studies 3% saline trial Kidney ultrasound 2D echocardiogram Per orders Vicente Gonzales MD Aug 08, 2020 14:01
--- NOTE | 2020-08-08 14:27 | Diagnostic Imaging Report ---
RENAL ULTRASOUND - COMPLETE INDICATION: CT abdomen and pelvis dated 08/08/2020. TECHNIQUE: Multiplanar ultrasound examination of the abdomen with greyscale and doppler imaging. COMPARISON: None FINDINGS: Right kidney: The kidneys are normal in size and echogenicity. There is no hydronephrosis.. Left kidney: The kidneys are normal in size and echogenicity. There is no hydronephrosis. Bladder: Incompletely imaged. Incidental note is made of large volume ascites as well as gallbladder sludge. The common bile duct is dilated and demonstrates low level echoes. Incidental note is also made of reversal of flow in the main portal vein. Known pancreatic head mass is not well evaluated on this examination. IMPRESSION: 1. No hydronephrosis or nephrolithiasis. 2. Nonvisualized urinary bladder. 3. Gallbladder sludge with dilated common bile duct which contains low-level echoes which may represent blood products or debris. Consider correlation with MRI/MRCP or ERCP as clinically indicated. 4. Reversal of flow in the main portal vein. 5. Large volume ascites.
--- NOTE | 2020-08-08 15:04 | Consultation ---
History of Present Illness General Date patient seen: Aug 08, 2020 Reason for Hospitalization: Abdominal Pain Present Illness HPI This is a 40 year old female with known history of alcoholic cirrhosis, varices, portal HTN, tobacco use, PTSD, who p/w diffuse abd pain x4 days. Last pa racentesis was 10 days ago at [facility]. Prior to that had a paracentesis performed at [facility]. 2L ascites was removed each time, and negative for infection. Patient states she has not drank x 18 days. Prior to that, she drank 2 bottles of wine a day x 4 years. Denies hx of EGD or colonoscopy. leukocytosis to 15. Pt is minimally interactive, lethargic, have to shake to awaken. Denies any fevers/chills, NVD, resp complaints. Just abd distension and discomfort. surgery called to evaluate for abd pain Allergies: Coded Allergies: No Known Allergies (Unverified , 07/08/16) COVID-19 Screening Contact w/high risk pt: No Experienced COVID-19 symptoms?: No Medication History Scheduled Cephalexin* (Keflex*), 500 MG ORAL TID Ferrous Sulfate* (Ferrous Sulfate*), 325 MG ORAL DAILY, (Reported) Folic Acid* (Folic Acid*), 1 MG ORAL DAILY, (Reported) Naproxen* (Naproxen*), 500 MG ORAL TWICE A DAY, (Reported) Omeprazole (Omeprazole), 40 MG ORAL DAILY, (Reported) Spironolactone* (Aldactone*), 25 MG ORAL DAILY, (Reported) Scheduled PRN Diphenhydramine Hcl* (Benadryl*), 25 MG ORAL Q6H PRN for Itching, (Reported) Melatonin (Melatonin 10 Mg Tablet), 1 TAB ORAL BEDTIME PRN for Insomnia, (Reported) Miscellaneous Medications Magnesium Amino Acid Chelate (Magnesium), 200 MG PO, (Reported) Potassium Gluconate (Potassium), 99 MG PO, (Reported) Theanine (l-Theanine), 200 MG PO, (Reported) Patient History Limited by: medical condition History Provided By: Patient, Medical Record, PMD Healthcare decision maker Resuscitation status Advanced Directive on File Past Medical/Surgical History Past Medical/Surgical History: (1) Encounter for removal of sutures (2) Encounter for wound re-check (3) Enterocolitis (4) Hiatal hernia (5) Pancreatic lesion (6) Gallbladder sludge (7) Lactic acidosis (8) Anemia, macrocytic (9) Ascites (10) Alcoholic cirrhosis (11) Pancreatitis (12) Renal failure (13) Thrombocytopenia (14) Metabolic acidosis (15) Abdominal pain (16) History of alcohol abuse (17) Scleral icterus Review of Systems Review of Symptoms General ROS: no weight loss or fever Psychological ROS: no depression or mood changes, no memory loss Ophthalmic ROS: no visual changes or eye irritation ENT ROS: no nasal congestion, hearing loss, dizziness Allergy and Immunology ROS: no allergic symptoms or urticaria Hematological and Lymphatic ROS: no swollen glands, unusual bleeding or bruising Endocrine ROS: no polyuria, polydipsia, weight changes, temperature intolerance Respiratory ROS: no cough, shortness of breath, or wheezing Cardiovascular ROS: no chest pain or dyspnea on exertion Gastrointestinal ROS: + abdominal pain, bright red blood in stool. Musculoskeletal ROS: no myalgias or arthralgias Neurological ROS: no TIA or stroke symptoms Dermatological ROS: no new or changing skin lesions, rashes or pruritis Physical Exam Physical Exam General appearance: alert, cooperative, no distress, appears stated age Head: Normocephalic, without obvious abnormality, atraumatic Eyes: conjunctivae/corneas clear. PERRL, EOM's intact. Fundi benign Throat: Lips, mucosa, and tongue normal. Teeth and gums normal Neck: supple, symmetrical, trachea midline, no adenopathy, thyroid: not enlarged, symmetric, no tenderness/mass/nodules, no carotid bruit and no JVD Lungs: clear to auscultation bilaterally Heart: regular rate and rhythm, S1, S2 normal, no murmur, click, rub or gallop Abdomen: soft, non-tender but uncomfortable fluid filled. Bowel sounds normal. No masses, no organomegaly Extremities: extremities normal, atraumatic, no cyanosis or edema Pulses: 2+ and symmetric Skin: Skin color, texture, turgor normal. No rashes or lesions Neurologic: Grossly normal Last 24 Hour Vital Signs Date Time Temp Pulse Resp B/P (MAP) Pulse Ox O2 Delivery O2 Flow Rate FiO2 08/08/20 12:00 Room Air 08/08/20 12:00 96.8 96 18 109/64 (79) 100 08/08/20 11:41 96 08/08/20 08:00 Room Air 12/10/20 08:00 96.3 103 18 106/57 (73) 100 08/08/20 07:44 97 08/08/20 05:40 Room Air 08/08/20 05:20 97.9 104 17 115/54 99 Room Air 08/08/20 02:49 95.7 08/08/20 01:45 103 20 Room Air 08/08/20 01:45 95.7 103 20 113/40 98 Room Air 08/08/20 01:39 95.7 111 18 119/64 (82) 100 Room Air Intake and Output 08/07/20 08/08/20 19:00 07:00 Intake Total 55 ml Balance 55 ml Intake Oral 0 ml IV Total 55 ml # Voids 1 Laboratory Tests Test 08/08/20 02:00 08/08/20 03:55 08/08/20 09:50 08/08/20 10:50 White Blood Count 15.3 K/UL (4.8-10.8) H 9.2 K/UL (4.8-10.8) Red Blood Count 2.54 M/UL (4.20-5.40) L 2.56 M/UL (4.20-5.40) L Hemoglobin 9.2 G/DL (12.0-16.0) L 9.4 G/DL (12.0-16.0) L Hematocrit 26.2 % (37.0-47.0) L 25.8 % (37.0-47.0) L Mean Corpuscular Volume 103 FL (80-99) H 101 FL (80-99) H Mean Corpuscular Hemoglobin 36.3 PG (27.0-31.0) H 36.7 PG (27.0-31.0) H Mean Corpuscular Hemoglobin Concent 35.3 G/DL (32.0-36.0) 36.5 G/DL (32.0-36.0) H Red Cell Distribution Width 15.5 % (11.6-14.8) H 15.2 % (11.6-14.8) H Platelet Count 71 K/UL (150-450) L 77 K/UL (150-450) L Mean Platelet Volume 9.7 FL (6.5-10.1) 9.6 FL (6.5-10.1) Neutrophils (%) (Auto) % (45.0-75.0) % (45.0-75.0) Lymphocytes (%) (Auto) % (20.0-45.0) % (20.0-45.0) Monocytes (%) (Auto) % (1.0-10.0) % (1.0-10.0) Eosinophils (%) (Auto) % (0.0-3.0) % (0.0-3.0) Basophils (%) (Auto) % (0.0-2.0) % (0.0-2.0) Prothrombin Time 23.4 SEC (9.30-11.50) H Prothromb Time International Ratio 2.3 (0.9-1.1) H Activated Partial Thromboplast Time 54 SEC (23-33) H Urine Color Yellow Urine Appearance Cloudy Urine pH 5 (4.5-8.0) Urine Specific [place] 1.020 (1.005-1.035) Urine Protein 2+ (NEGATIVE) H Urine Glucose (UA) Negative (NEGATIVE) Urine Ketones 1+ (NEGATIVE) H Urine Blood 2+ (NEGATIVE) H Urine Nitrite Positive (NEGATIVE) H Urine Bilirubin 3+ (NEGATIVE) H Urine Ictotest Positive (NEGATIVE) Urine Urobilinogen 4 MG/DL (0.0-1.0) H Urine Leukocyte Esterase 1+ (NEGATIVE) H Urine RBC 2-4 /HPF (0 - 2) H Urine WBC 15-20 /HPF (0 - 2) H Urine Squamous Epithelial Cells Many /LPF (NONE/OCC) H Urine Bacteria Many /HPF (NONE) H Sodium Level 123 MMOL/L (136-145) L 123 MMOL/L (136-145) L Potassium Level 4.5 MMOL/L (3.5-5.1) 4.7 MMOL/L (3.5-5.1) Chloride Level 90 MMOL/L (98-107) L 91 MMOL/L (98-107) L Carbon Dioxide Level 20 MMOL/L (21-32) L 20 MMOL/L (21-32) L Anion Gap 13 mmol/L (5-15) 12 mmol/L (5-15) Blood Urea Nitrogen 30 mg/dL (7-18) H 32 mg/dL (7-18) H Creatinine 3.0 MG/DL (0.55-1.30) H 3.0 MG/DL (0.55-1.30) H Estimat Glomerular Filtration Rate 21.0 mL/min (>60) 21.0 mL/min (>60) Glucose Level 100 MG/DL (74-106) 92 MG/DL (74-106) Lactic Acid Level 5.80 mmol/L (0.4-2.0) H 5.20 mmol/L (0.66-2.22) H 3.90 mmol/L (0.4-2.0) H Calcium Level 8.2 MG/DL (8.5-10.1) L 8.4 MG/DL (8.5-10.1) L Phosphorus Level 3.6 MG/DL (2.5-4.9) 4.1 MG/DL (2.5-4.9) Magnesium Level 2.5 MG/DL (1.8-2.4) H 2.6 MG/DL (1.8-2.4) H Total Bilirubin 15.9 MG/DL (0.2-1.0) H 15.7 MG/DL (0.2-1.0) H Direct Bilirubin 12.6 MG/DL (0.0-0.3) H 11.9 MG/DL (0.0-0.3) H Aspartate Amino Transf (AST/SGOT) 241 U/L (15-37) H 216 U/L (15-37) H Alanine Aminotransferase (ALT/SGPT) 93 U/L (12-78) H 84 U/L (12-78) H Alkaline Phosphatase 187 U/L (46-116) H 166 U/L (46-116) H Troponin I 0.001 ng/mL (0.000-0.056) Pro-B-Type Natriuretic Peptide 791 pg/mL (0-125) H 724 pg/mL (0-125) H Total Protein 7.8 G/DL (6.4-8.2) 7.5 G/DL (6.4-8.2) Albumin 1.9 G/DL (3.4-5.0) L 2.2 G/DL (3.4-5.0) L Globulin 5.9 g/dL 5.3 g/dL Albumin/Globulin Ratio 0.3 (1.0-2.7) L 0.4 (1.0-2.7) L Lipase 604 U/L (73-393) H Human Chorionic Gonadotropin, Quant < 1 mIU/mL (1-6) L Serum Alcohol < 3 mg/dL Differential Total Cells Counted 100 Neutrophils % (Manual) 77 % (45-75) H Lymphocytes % (Manual) 17 % (20-45) L Monocytes % (Manual) 6 % (1-10) Eosinophils % (Manual) 0 % (0-3) Basophils % (Manual) 0 % (0-2) Band Neutrophils 0 % (0-8) Platelet Estimate Decreased L Platelet Morphology Normal Hypochromasia 1+ Anisocytosis 1+ Osmolality 274 mOsm/kg (297-317) L Uric Acid 7.6 MG/DL (2.6-7.2) H Iron Level 89 ug/dL (50-175) Total Iron Binding Capacity 110 ug/dL (250-450) L Percent Iron Saturation 81 % (15-50) H Unsaturated Iron Binding 21 ug/dL (112-346) L Ferritin 305 NG/ML (8-388) Gamma Glutamyl Transpeptidase 201 U/L (5-85) H Ammonia 149 umol/L (11-32) H Total Creatine Kinase 41 U/L (26-308) C-Reactive Protein, Quantitative 7.9 mg/dL (0.00-0.90) H Triglycerides Level 53 MG/DL (30-150) Cholesterol Level < 50 MG/DL (< 200) LDL Cholesterol 31 mg/dL (<100) HDL Cholesterol 15 MG/DL (40-60) L Cholesterol/HDL Ratio 3.3 (3.3-4.4) Vitamin B12 Level 1959 PG/ML (193-986) H Folate 13.3 NG/ML (8.6-58.9) Thyroid Stimulating Hormone (TSH) 1.411 uiU/mL (0.358-3.740) Test 08/08/20 14:30 Urine Osmolality 293 mOsm/kg (429-449) L Urine Random Sodium < 20 mmol/L (20-110) L Urine Opiates Screen Positive (NEGATIVE) H Urine Barbiturates Screen Negative (NEGATIVE) Phencyclidine (PCP) Screen Negative (NEGATIVE) Urine Amphetamines Screen Negative (NEGATIVE) Urine Benzodiazepines Screen Negative (NEGATIVE) Urine Cocaine Screen Negative (NEGATIVE) Urine Marijuana (THC) Screen Negative (NEGATIVE) Height (Feet): 5 Height (Inches): 5.00 Weight (Pounds): 127 Medications Current Medications Medications (Trade) Dose Ordered Sig/Baldemar Route PRN Reason Start Time Stop Time Status Last Admin Dose Admin Ceftriaxone Sodium 1 gm/ Dextrose 55 ml @ 110 mls/hr Q24H IVPB 08/09/20 02:00 08/16/20 01:59 Folic Acid (Folate) 1 mg DAILY ORAL 08/08/20 09:00 09/07/20 08:59 08/08/20 08:31 Iohexol (OMNIPAQUE-300 100ml) 100 ml NOW PRN INJ Radiology Procedure 08/08/20 02:00 08/10/20 01:59 Pantoprazole (Protonix) 40 mg EVERY 12 HOURS IVP 08/08/20 09:00 09/07/20 08:59 08/08/20 08:31 Sodium Chloride 250 ml @ 30 mls/hr ONCE ONCE IV 08/08/20 15:00 08/08/20 23:19 08/08/20 14:53 Assessment/Plan Problem List: (1) Enterocolitis ICD Codes: K52.9 - Noninfective gastroenteritis and colitis, unspecified SNOMED: 97473326, 36275170 (2) Hiatal hernia ICD Codes: K44.9 - Diaphragmatic hernia without obstruction or gangrene SNOMED: 02312721, 98755856 (3) Pancreatic lesion ICD Codes: K86.9 - Disease of pancreas, unspecified SNOMED: 2260176 (4) Gallbladder sludge ICD Codes: K82.8 - Other specified diseases of gallbladder SNOMED: 95878888, 86201878 (5) Lactic acidosis ICD Codes: E87.2 - Acidosis SNOMED: 47941447 (6) Anemia, macrocytic ICD Codes: D53.9 - Nutritional anemia, unspecified SNOMED: 23192985 (7) Ascites ICD Codes: R18.8 - Other ascites SNOMED: 099326408 (8) Alcoholic cirrhosis ICD Codes: K70.30 - Alcoholic cirrhosis of liver without ascites SNOMED: 818497512 (9) Pancreatitis ICD Codes: K85.90 - Acute pancreatitis without necrosis or infection, unspecified SNOMED: 49271132 (10) Renal failure ICD Codes: N19 - Unspecified kidney failure SNOMED: 25330746 (11) Thrombocytopenia ICD Codes: D69.6 - Thrombocytopenia, unspecified SNOMED: 768315792 (12) Metabolic acidosis ICD Codes: E87.2 - Acidosis SNOMED: 55223926 (13) Abdominal pain Assessment & Plan: 40F alcoholic cirrhosis liver insufficiency ascites requiring para now with abd pain. recent admission to outside facility. ct noted. exam not acute abdomen. enteritis. panc cyst. no acute surgical intervention. okay for diet. fluids. para prn. will follow with exam and recs. thank you ABDOMEN: Liver: Hepatomegaly. Gallbladder and bile ducts: Cholelithiasis/sludge. Mildly distended gallbladder, nonspecific. No ductal dilation. Pancreas: Absent IV contrast limit evaluation and assessment of size of the pancreatic lesion. There is heterogeneous mass in the head/uncinate process of the pancreas measuring up to 4.7 cm. This appears increased in size. Prominent tail of the pancreas is again noted. Spleen: Unremarkable. No splenomegaly. Adrenals: Unremarkable. No mass. Kidneys and ureters: Unremarkable. No obstructing stones. No hydronephrosis. Stomach and bowel: Thickening of the colonic wall, nonspecific and may partly reflect reactive change. Recommend clinical correlation and follow-up to exclude developing colitis. This is most pronounced in the ascending colon. Multiple fluid-filled dilated small bowel loops with scattered air-fluid levels which may reflect ileus/enteritis. Recommend clinical correlation and follow-up to exclude partial developing loose obstruction in the distal small bowel. Absent IV and oral contrast as well as diffuse ascites and soft tissue stranding limit evaluation. PELVIS: Appendix: No findings to suggest acute appendicitis. Bladder: Unremarkable. No stones. Reproductive: Unremarkable as visualized. ABDOMEN and PELVIS: Intraperitoneal space: Diffuse soft tissue stranding in the intra- abdominal fat and mesentery, nonspecific. No free air. Moderate to large free fluid in the abdomen. Bones/joints: No acute fracture. No dislocation. Soft tissues: Mild anasarca. Vasculature: Unremarkable. No abdominal aortic aneurysm. Lymph nodes: Prominent inguinal lymph nodes, probably reactive. IMPRESSION: 1. Absent IV and oral contrast limit evaluation. Mild to moderate ascites 2. Sludge/gallstones and distended gallbladder, nonspecific. 3. Follow-up HIDA scan could be obtained to exclude developing acute cholecystitis as indicated. 4. Pancreatic lesion/abnormality, which appears increased in size. Although focal pancreatitis/cystic/necrotic change can give this appearance, malignancy is difficult to exclude. 5. No free air. 6. Findings which may reflect diffuse enterocolitis. Recommend clinical correlation and follow-up to exclude partial distal small bowel obstruction. 7. Hepatomegaly. ICD Codes: R10.9 - Unspecified abdominal pain SNOMED: 78135665 (14) History of alcohol abuse ICD Codes: F10.11 - Alcohol abuse, in remission SNOMED: 787365277 (15) Scleral icterus ICD Codes: R17 - Unspecified jaundice SNOMED: 424886555 (16) Encounter for removal of sutures ICD Codes: Z48.02 - Encounter for removal of sutures SNOMED: 605485621, 85161752, 744861061 (17) Encounter for wound re-check ICD Codes: Z51.89 - Encounter for other specified aftercare SNOMED: 679238438, 130357525, 392153226 Joao Jarvis Aug 08, 2020 15:04
--- NOTE | 2020-08-08 15:17 | NUR ---
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 95.7 HR 111 RR 18 B/P 119/64 WBC 15.3 NA 123 BUN 30 CR 3.0 LIPASE 604 IS: LIDOCAINE MORPHINE IV ROCEPHIN IV ZOFRAN IV ADMITTED TO STEP DOWN STEP DOWN STATUS DCP PENDING HOSPITAL STAY
--- NOTE | 2020-08-08 15:56 | NUR ---
INSURANCE CLINICALS/REVIEW FAXED TO [facility] [phone]
[2020-08-08 16:00] VITALS: BP 135/73
--- NOTE | 2020-08-08 16:00 | History and Physical Report ---
DATE OF ADMISSION: 08/08/2020 TIME SEEN: Approximate time is 1 p.m. CONSULTANTS: 1. Vicente Gonzales MD. 2. Nelson Bell MD. 3. Lee Guidry MD. 4. Ghassan Kovacs MD. 5. Tacos Cooley MD. CHIEF COMPLAINT: Abdominal pain, anasarca, and new acute renal failure. BRIEF HISTORY: This is a 40-year-old female with history of alcoholic cirrhosis. Apparently, abdomen started swelling about four days ago and also increased abdominal pain, came to ER last night, diagnosed with anasarca, possible needing paracentesis and new acute renal failure and leukocytosis and was admitted to step-down unit. Currently, slightly anxious, slightly confused in bed, not talking much. REVIEW OF SYSTEMS: Unavailable. PAST MEDICAL HISTORY: Alcoholic cirrhosis, portal hypertension, PTSD, and anxiety. PAST SURGICAL HISTORY: Unknown. ALLERGIES: Denies. MEDICATIONS: Include ceftriaxone, pantoprazole, morphine, albumin, thiamine, Zofran. SOCIAL HISTORY: No smoking. Positive alcohol. No intravenous drug abuse. FAMILY HISTORY: Noncontributory. PHYSICAL EXAMINATION: GENERAL: Lethargic in bed, slight abdominal pain. VITAL SIGNS: Temperature is 97, pulse 96, respirations 18, blood pressure 109/64. CARDIOVASCULAR: No murmur. LUNGS: Poor air exchange. ABDOMEN: Distended, slightly tender, soft. No guarding. No rigidity. EXTREMITIES: Show no cyanosis, clubbing, or edema. NEUROLOGIC: The patient moves all extremities, slightly weak. LABORATORY AND DIAGNOSTIC DATA: Labs at this time show white count initially 15, now at 9.2, hemoglobin and hematocrit 9.4/25, platelets 77. INR is 2.3. PTT is 54. Sodium 123, chloride 91, CO2 20. BUN and creatinine 32/3.0. AST 216, ALT 84, alkaline phosphatase 166. Albumin 2.2. Urinalysis showed 3+ bilirubin, 1+ ketones, positive nitrite. ASSESSMENT: 1. Abdominal pain. 2. Anasarca. 3. UTI. 4. Malnutrition. 5. New acute renal failure. 6. Anemia. 7. Leukocytosis. 8. . 9. Alcoholic cirrhosis. 10. Portal hypertension. 11. PTSD. 12. Anxiety. PLAN: 1. NPO. 2. Possible paracentesis. 3. GI followup. 4. Pain control. 5. PT and dietary evaluation. 6. CBC and BMP in the morning. 7. We will add Surgery, Cardiology, and Hematology evaluation. Kailash Mi D.O. DR: AQUILES JOB#: [id number] CC:
--- NOTE | 2020-08-08 17:35 | NUR ---
NURSE NOTES:Attempted to call the patient's mother Moni Summers to obtain consent for paracentesis, did not get an answer from the mother. Patient is forgetful and lethargic so unable to get consent from patient, patient also stated that she has not spoken to a doctor regarding the procedure.
--- NOTE | 2020-08-08 19:56 | NUR ---
NURSE HAND-OFF REPORT: Important Events on Shift:Patient high fall risk, endorsed to NOAH Betancourt. Patient Status: Stable Diet: NPO Pending Orders: Thoracentesis Pending Results/Labs: Pending MD notification: Latest Vital Signs: Temperature 96.9 , Pulse 100 , B/P 135 /73 , Respiratory Rate 16 , O2 SAT 100 , Room Air, O2 Flow Rate . Vital Sign Comment: EKG Rhythm: Sinus Rhythm Rhythm change?: N MD Notified?: - MD Response: Latest Hurt Fall Score: 30 Fall Risk: Medium Risk Safety Measures: Call light Within Reach, Bed Alarm Zone 2, Side Rails Side Rails x2, Bed position Low and Locked. Fall Precautions: Patient Fall Education Report given to NOAH Betancourt.
--- NOTE | 2020-08-08 19:57 | NUR ---
NURSE NOTES: Important Events on Shift: Received report from Elbert Amin RN. Pt in bed, lethargic, oriented to name only. Pt repositioned. Pt denies pain at this time. No signs or symptoms of distress or pain noted at this time, FLACC 0. Will continue plan of care and close monitoring. Patient Status: stable Diet: NPO Pending Orders: none Pending Results/Labs: Ammonia, amylase, cbc, cmp, lactic, lipase, pt, ptt Pending MD notification: none Latest Vital Signs: Temperature 97.8 , Pulse 89 , B/P 134 /78 , Respiratory Rate 18 , O2 SAT 99 , Room Air, O2 Flow Rate . Vital Sign Comment: stable throughout shift EKG Rhythm: Sinus Rhythm Rhythm change?: N MD Notified?: - MD Response: Latest Hurt Fall Score: 45 Fall Risk: High Risk Safety Measures: Call light Within Reach, Bed Alarm Zone 2, Side Rails Side Rails x2, Bed position Low and Locked. Fall Precautions: YES Patient Fall Education YES Yellow gown YES
[2020-08-08 20:00] VITALS: BP 131/73
[2020-08-09] VITALS: BP 126/76
[2020-08-09] MEDS: cefTRIAXone 1 GM in D5W 55 ML IVPB SCH (03:33)
[2020-08-09 04:00] VITALS: BP 134/78
[2020-08-09 05:02] LABS: HEMATOCRIT 22.8 % (37.0-47.0); HEMOGLOBIN 8.1 G/DL (12.0-16.0); MEAN CORPUSCULAR VOLUME 102 FL (80-99); PLATELET COUNT 70 K/UL (150-450); RED BLOOD COUNT 2.23 M/UL (4.20-5.40); RED CELL DISTRIBUTION WIDTH 16.3 % (11.6-14.8); WHITE BLOOD COUNT 14.5 K/UL (4.8-10.8)
[2020-08-09 05:09] LABS: INR 2.8 (0.9-1.1)
[2020-08-09 05:36] LABS: ALBUMIN/GLOBULIN RATIO 0.4 (1.0-2.7); BILIRUBIN,TOTAL 16.6 MG/DL (0.2-1.0); CALCIUM 8.7 MG/DL (8.5-10.1); CREATININE 3.6 MG/DL (0.55-1.30); POTASSIUM 5.3 MMOL/L (3.5-5.1)
[2020-08-09 06:27] LABS: BILIRUBIN,DIRECT 12.3 MG/DL (0.0-0.3)
--- NOTE | 2020-08-09 07:11 | NUR ---
NURSE HAND-OFF REPORT: Important Events on Shift: Received telephone consent from pt's mother for paracentesis. Patient Status: stable Diet: NPO Pending Orders: paracentesis Pending Results/Labs: Ammonia, amylase, cbc, cmp, lactic, lipase, pt, ptt, sed rate Pending MD notification: none Latest Vital Signs: Temperature 97.8 , Pulse 97 , B/P 134 /78 , Respiratory Rate 18 , O2 SAT 99 , Room Air, O2 Flow Rate . Vital Sign Comment: EKG Rhythm: Sinus Rhythm Rhythm change?: N MD Notified?: - MD Response: Latest Hurt Fall Score: 45 Fall Risk: High Risk Safety Measures: Call light Within Reach, Bed Alarm Zone 2, Side Rails Side Rails x2, Bed position Low and Locked. Fall Precautions: YES Patient Fall Education YES
--- NOTE | 2020-08-09 07:39 | NUR ---
NURSE NOTES:Handoff received from NOAH Teixeira. Patient received resting in bed, patient is lethargic but responds to voice and able to answer simple questions and make needs known. Patient is on room air saturating at 99% no acute signs of distress noted. Patient is placed on contact and droplet isolation for PUI covid and is scheduled for paracentesis today. Fall precautions also initiated with patient informed to use call light for assistance and not to get up out of bed. IV site is R AC 20G clean dry and intact, flushing well and saline locked. Perez is anchored in place and positioned on side of bed, draining to gravity. SCD's are in place and on. Will follow plan of care.
[2020-08-09 08:00] VITALS: BP 129/71
--- NOTE | 2020-08-09 08:30 | Infectious Diseases Prog Note ---
Assessment/Plan 40yo F with: Afebrile Leukocytosis to 15, improving Massive ascites R/o SBP 12/10 BCx p UA 15-20 WBC, UCx NTD CXR: Streaky bibasilar airspace opacities likely representing subsegmental atelectasis given low lung volumes, but pneumonia should be excluded clinically. COVID PCR neg Alcoholic cirrhosis c/b ascites, varices, portal HTN Recurrent need for paracenteses Thrombocytopenia to 70s Elevated LFTs, AST>ALT Pancreatic mass 08/08 CT A/P wo con: Mild to moderate ascites 2. Sludge/gallstones and distended gallbladder, nonspecific. 4. Pancreatic lesion/abnormality, which appears increased in size. Although focal pancreatitis/cystic/necrotic change can give this appearance, malignancy is difficult to exclude. 5. No free air. 6. Findings which may reflect diffuse enterocolitis. 7. Hepatomegaly. ILEANA on CKD, Cr 3.0, worsening 08/08 Renal US: 1. No hydronephrosis or nephrolithiasis. 2. Nonvisualized urinary bladder. 3. Gallbladder sludge with dilated common bile duct which contains low-level echoes which may represent blood products or debris. Consider correlation with MRI/MRCP or ERCP as clinically indicated. 4. Reversal of flow in the main portal vein. 5. Large volume ascites. Plan: Cont CTX 1g daily #2 empiric R/o SBP from ascites - send fluid for cell count and diff, bacterial cx F/u BCx, UCx 12/10 Trend WBC Trend LFTs Monitor CBC/CMP Monitor temp curve, hemodynamics Monitor resp status D/w RN Thank you for this consult. [facility] will continue to follow. Subjective Allergies: Coded Allergies: No Known Allergies (Unverified , 07/08/16) AF WBC 14 from 15 ILEANA worsening Ammonia very elevated NAD on RA, more lethargic and out of it today, not interactive at all Getting FFP, then HD cath and possible para per RN Objective Last 24 Hour Vital Signs Date Time Temp Pulse Resp B/P (MAP) Pulse Ox O2 Delivery O2 Flow Rate FiO2 08/09/20 08:00 Room Air 08/09/20 08:00 97.2 99 18 129/71 (90) 100 08/09/20 04:00 97.8 89 18 134/78 (96) 99 08/09/20 04:00 97 08/09/20 04:00 Room Air 08/09/20 00:00 Room Air 08/09/20 00:00 96.9 84 20 126/76 (93) 99 08/09/20 00:00 100 08/08/20 21:00 93 08/08/20 20:00 Room Air 08/08/20 20:00 97.1 93 18 131/73 (92) 99 08/08/20 16:00 Room Air 08/08/20 16:00 96.9 100 16 135/73 (93) 100 08/08/20 15:28 96 08/08/20 12:00 Room Air 08/08/20 12:00 96.8 96 18 109/64 (79) 100 08/08/20 11:41 96 Height (Feet): 5 Height (Inches): 5.00 Weight (Pounds): 127 Gen: NAD in bed HEENT: NCAT CV: RRR Pulm: CTAB Abd: Very distended w/ ascites Ext: No c/c/e Neuro: Lethargic, not interactive Microbiology Date/Time Source Procedure Growth Status 08/08/20 14:10 Nasopharynx Coronavirus COVID-19 PCR (SHERYL) - Final Complete 08/08/20 02:00 Urine,Clean Catch Urine Culture - Preliminary NO GROWTH AFTER 24 HOURS Resulted Laboratory Tests Test 08/08/20 09:50 08/08/20 10:50 08/08/20 14:30 08/08/20 17:00 White Blood Count 9.2 K/UL (4.8-10.8) Red Blood Count 2.56 M/UL (4.20-5.40) L Hemoglobin 9.4 G/DL (12.0-16.0) L Hematocrit 25.8 % (37.0-47.0) L Mean Corpuscular Volume 101 FL (80-99) H Mean Corpuscular Hemoglobin 36.7 PG (27.0-31.0) H Mean Corpuscular Hemoglobin Concent 36.5 G/DL (32.0-36.0) H Red Cell Distribution Width 15.2 % (11.6-14.8) H Platelet Count 77 K/UL (150-450) L Mean Platelet Volume 9.6 FL (6.5-10.1) Neutrophils (%) (Auto) % (45.0-75.0) Lymphocytes (%) (Auto) % (20.0-45.0) Monocytes (%) (Auto) % (1.0-10.0) Eosinophils (%) (Auto) % (0.0-3.0) Basophils (%) (Auto) % (0.0-2.0) Differential Total Cells Counted 100 Neutrophils % (Manual) 77 % (45-75) H Lymphocytes % (Manual) 17 % (20-45) L Monocytes % (Manual) 6 % (1-10) Eosinophils % (Manual) 0 % (0-3) Basophils % (Manual) 0 % (0-2) Band Neutrophils 0 % (0-8) Platelet Estimate Decreased L Platelet Morphology Normal Hypochromasia 1+ Anisocytosis 1+ Sodium Level 123 MMOL/L (136-145) L Potassium Level 4.7 MMOL/L (3.5-5.1) Chloride Level 91 MMOL/L (98-107) L Carbon Dioxide Level 20 MMOL/L (21-32) L Anion Gap 12 mmol/L (5-15) Blood Urea Nitrogen 32 mg/dL (7-18) H Creatinine 3.0 MG/DL (0.55-1.30) H Estimat Glomerular Filtration Rate 21.0 mL/min (>60) Glucose Level 92 MG/DL (74-106) Osmolality 274 mOsm/kg (297-317) L Lactic Acid Level 3.90 mmol/L (0.4-2.0) H 4.50 mmol/L (0.4-2.0) H Uric Acid 7.6 MG/DL (2.6-7.2) H Calcium Level 8.4 MG/DL (8.5-10.1) L Phosphorus Level 4.1 MG/DL (2.5-4.9) Magnesium Level 2.6 MG/DL (1.8-2.4) H Iron Level 89 ug/dL (50-175) Total Iron Binding Capacity 110 ug/dL (250-450) L Percent Iron Saturation 81 % (15-50) H Unsaturated Iron Binding 21 ug/dL (112-346) L Ferritin 305 NG/ML (8-388) Total Bilirubin 15.7 MG/DL (0.2-1.0) H Direct Bilirubin 11.9 MG/DL (0.0-0.3) H Gamma Glutamyl Transpeptidase 201 U/L (5-85) H Aspartate Amino Transf (AST/SGOT) 216 U/L (15-37) H Alanine Aminotransferase (ALT/SGPT) 84 U/L (12-78) H Alkaline Phosphatase 166 U/L (46-116) H Ammonia 149 umol/L (11-32) H Total Creatine Kinase 41 U/L (26-308) C-Reactive Protein, Quantitative 7.9 mg/dL (0.00-0.90) H Pro-B-Type Natriuretic Peptide 724 pg/mL (0-125) H Total Protein 7.5 G/DL (6.4-8.2) Albumin 2.2 G/DL (3.4-5.0) L Globulin 5.3 g/dL Albumin/Globulin Ratio 0.4 (1.0-2.7) L Triglycerides Level 53 MG/DL (30-150) Cholesterol Level < 50 MG/DL (< 200) LDL Cholesterol 31 mg/dL (<100) HDL Cholesterol 15 MG/DL (40-60) L Cholesterol/HDL Ratio 3.3 (3.3-4.4) Vitamin B12 Level 1959 PG/ML (193-986) H Folate 13.3 NG/ML (8.6-58.9) Thyroid Stimulating Hormone (TSH) 1.411 uiU/mL (0.358-3.740) Urine Osmolality 293 mOsm/kg (429-449) L Urine Random Sodium < 20 mmol/L (20-110) L Urine Opiates Screen Positive (NEGATIVE) H Urine Barbiturates Screen Negative (NEGATIVE) Phencyclidine (PCP) Screen Negative (NEGATIVE) Urine Amphetamines Screen Negative (NEGATIVE) Urine Benzodiazepines Screen Negative (NEGATIVE) Urine Cocaine Screen Negative (NEGATIVE) Urine Marijuana (THC) Screen Negative (NEGATIVE) Test 08/09/20 00:04 08/09/20 03:35 POC Whole Blood Glucose 69 MG/DL (74-106) L White Blood Count 14.5 K/UL (4.8-10.8) #H Red Blood Count 2.23 M/UL (4.20-5.40) L Hemoglobin 8.1 G/DL (12.0-16.0) L Hematocrit 22.8 % (37.0-47.0) L Mean Corpuscular Volume 102 FL (80-99) H Mean Corpuscular Hemoglobin 36.1 PG (27.0-31.0) H Mean Corpuscular Hemoglobin Concent 35.3 G/DL (32.0-36.0) Red Cell Distribution Width 16.3 % (11.6-14.8) H Platelet Count 70 K/UL (150-450) L Mean Platelet Volume 10.8 FL (6.5-10.1) H Neutrophils (%) (Auto) % (45.0-75.0) Lymphocytes (%) (Auto) % (20.0-45.0) Monocytes (%) (Auto) % (1.0-10.0) Eosinophils (%) (Auto) % (0.0-3.0) Basophils (%) (Auto) % (0.0-2.0) Neutrophils % (Manual) Pending Lymphocytes % (Manual) Pending Platelet Estimate Pending Platelet Morphology Pending Erythrocyte Sedimentation Rate 130 MM/HR (0-20) H Prothrombin Time 28.1 SEC (9.30-11.50) H Prothromb Time International Ratio 2.8 (0.9-1.1) H Activated Partial Thromboplast Time 68 SEC (23-33) H Sodium Level 125 MMOL/L (136-145) L Potassium Level 5.3 MMOL/L (3.5-5.1) H Chloride Level 93 MMOL/L (98-107) L Carbon Dioxide Level 19 MMOL/L (21-32) L Anion Gap 14 mmol/L (5-15) Blood Urea Nitrogen 36 mg/dL (7-18) H Creatinine 3.6 MG/DL (0.55-1.30) H Estimat Glomerular Filtration Rate 17.0 mL/min (>60) Glucose Level 70 MG/DL (74-106) L Lactic Acid Level 6.50 mmol/L (0.4-2.0) H Calcium Level 8.7 MG/DL (8.5-10.1) Total Bilirubin 16.6 MG/DL (0.2-1.0) H Direct Bilirubin 12.3 MG/DL (0.0-0.3) H Aspartate Amino Transf (AST/SGOT) 206 U/L (15-37) H Alanine Aminotransferase (ALT/SGPT) 81 U/L (12-78) H Alkaline Phosphatase 168 U/L (46-116) H Ammonia 173 umol/L (11-32) H Total Protein 7.1 G/DL (6.4-8.2) Albumin 2.0 G/DL (3.4-5.0) L Globulin 5.1 g/dL Albumin/Globulin Ratio 0.4 (1.0-2.7) L Amylase Level 46 U/L (25-115) Lipase 303 U/L (73-393) Alpha Fetoprotein Pending CA 19-9 Antigen Pending Current Medications Medications (Trade) Dose Ordered Sig/Baldemar Route PRN Reason Start Time Stop Time Status Last Admin Dose Admin Ceftriaxone Sodium 1 gm/ Dextrose 55 ml @ 110 mls/hr Q24H IVPB 08/09/20 02:00 08/16/20 01:59 08/09/20 03:33 Folic Acid (Folate) 1 mg DAILY ORAL 08/08/20 09:00 09/07/20 08:59 08/08/20 08:31 Iohexol (OMNIPAQUE-300 100ml) 100 ml NOW PRN INJ Radiology Procedure 08/08/20 02:00 08/10/20 01:59 Pantoprazole (Protonix) 40 mg EVERY 12 HOURS IVP 08/08/20 09:00 09/07/20 08:59 08/08/20 21:06 Keesha Ramirez M.D. Aug 09, 2020 08:29
[2020-08-09] MEDS: Lactulose 20gm/30ml UDC ORAL SCH ×4 (09:00→17:38)
--- NOTE | 2020-08-09 09:19 | General Progress Note ---
Subjective Constitutional: Reports: weakness Allergies: Coded Allergies: No Known Allergies (Unverified , 07/08/16) All Systems: reviewed and negative except above Subjective sleepy calm Objective Last 24 Hour Vital Signs Date Time Temp Pulse Resp B/P (MAP) Pulse Ox O2 Delivery O2 Flow Rate FiO2 08/09/20 08:00 Room Air 08/09/20 08:00 97.2 99 18 129/71 (90) 100 08/09/20 04:00 97.8 89 18 134/78 (96) 99 08/09/20 04:00 97 08/09/20 04:00 Room Air 08/09/20 00:00 Room Air 08/09/20 00:00 96.9 84 20 126/76 (93) 99 08/09/20 00:00 100 08/08/20 21:00 93 08/08/20 20:00 Room Air 08/08/20 20:00 97.1 93 18 131/73 (92) 99 08/08/20 16:00 Room Air 08/08/20 16:00 96.9 100 16 135/73 (93) 100 08/08/20 15:28 96 08/08/20 12:00 Room Air 08/08/20 12:00 96.8 96 18 109/64 (79) 100 08/08/20 11:41 96 Intake and Output 08/08/20 08/09/20 19:00 07:00 Intake Total 362.5 ml 0 ml Output Total 50 ml 100 ml Balance 312.5 ml -100 ml Intake Oral 0 ml 0 ml IV Total 362.5 ml Output Urine Total 50 ml 100 ml Laboratory Tests 08/08/20 09:50: White Blood Count 9.2, Red Blood Count 2.56L, Hemoglobin 9.4L, Hematocrit 25.8L, Mean Corpuscular Volume 101H, Mean Corpuscular Hemoglobin 36.7H, Mean Corpuscular Hemoglobin Concent 36.5H, Red Cell Distribution Width 15.2H, Platelet Count 77L, Mean Platelet Volume 9.6, Neutrophils (%) (Auto) , Lymphocytes (%) (Auto) , Monocytes (%) (Auto) , Eosinophils (%) (Auto) , Basop hils (%) (Auto) , Differential Total Cells Counted 100, Neutrophils % (Manual) 77H, Lymphocytes % (Manual) 17L, Monocytes % (Manual) 6, Eosinophils % (Manual) 0, Basophils % (Manual) 0, Band Neutrophils 0, Platelet Estimate DecreasedL, Platelet Morphology Normal, Hypochromasia 1+, Anisocytosis 1+ 08/08/20 10:50: Sodium Level 123L, Potassium Level 4.7, Chloride Level 91L, Carbon Dioxide Level 20L, Anion Gap 12, Blood Urea Nitrogen 32H, Creatinine 3.0H, Estimat Glomerular Filtration Rate 21.0, Glucose Level 92, Osmolality 274L, Lactic Acid Level 3.90H , Uric Acid 7.6H, Calcium Level 8.4L, Phosphorus Level 4.1, Magnesium Level 2.6H , Iron Level 89, Total Iron Binding Capacity 110L, Percent Iron Saturation 81H, Unsaturated Iron Binding 21L, Ferritin 305, Total Bilirubin 15.7H, Direct Bilirubin 11.9H, Gamma Glutamyl Transpeptidase 201H, Aspartate Amino Transf (AST /SGOT) 216H, Alanine Aminotransferase (ALT/SGPT) 84H, Alkaline Phosphatase 166H, Ammonia 149H, Total Creatine Kinase 41, C-Reactive Protein, Quantitative 7.9H, Pro-B-Type Natriuretic Peptide 724H, Total Protein 7.5, Albumin 2.2L, Globulin 5.3, Albumin/Globulin Ratio 0.4L, Triglycerides Level 53, Cholesterol Level < 50, LDL Cholesterol 31, HDL Cholesterol 15L, Cholesterol/HDL Ratio 3.3, Vitamin B12 Level 1959H, Folate 13.3, Thyroid Stimulating Hormone (TSH) 1.411 08/08/20 14:30: Urine Osmolality 293L, Urine Random Sodium < 20L, Urine Opiates Screen PositiveH , Urine Barbiturates Screen Negative, Phencyclidine (PCP) Screen Negative, Urine Amphetamines Screen Negative, Urine Benzodiazepines Screen Negative, Urine Cocaine Screen Negative, Urine Marijuana (THC) Screen Negative 08/08/20 17:00: Lactic Acid Level 4.50H 08/09/20 00:04: POC Whole Blood Glucose 69L 08/09/20 03:35: White Blood Count 14.5#H, Red Blood Count 2.23L, Hemoglobin 8.1L, Hematocrit 22.8L, Mean Corpuscular Volume 102H, Mean Corpuscular Hemoglobin 36.1H, Mean Corpuscular Hemoglobin Concent 35.3, Red Cell Distribution Width 16.3H, Platelet Count 70L, Mean Platelet Volume 10.8H, Neutrophils (%) (Auto) , Lymphocytes (%) (Auto) , Monocytes (%) (Auto) , Eosinophils (%) (Auto) , Basophils (%) (Auto) , Neutrophils % (Manual) [Pending], Lymphocytes % (Manual) [Pending], Platelet Estimate [Pending], Platelet Morphology [Pending], Erythrocyte Sedimentation Rate 130H, Prothrombin Time 28.1H, Prothromb Time International Ratio 2.8H, Activated Partial Thromboplast Time 68H, Sodium Level 125L, Potassium Level 5.3H , Chloride Level 93L, Carbon Dioxide Level 19L, Anion Gap 14, Blood Urea Nitrogen 36H, Creatinine 3.6H, Estimat Glomerular Filtration Rate 17.0, Glucose Level 70L, Lactic Acid Level 6.50H, Calcium Level 8.7, Total Bilirubin 16.6H, Direct Bilirubin 12.3H, Aspartate Amino Transf (AST/SGOT) 206H, Alanine Aminotransferase (ALT/SGPT) 81H, Alkaline Phosphatase 168H, Ammonia 173H, Total Protein 7.1, Albumin 2.0L, Globulin 5.1, Albumin/Globulin Ratio 0.4L, Amylase Level 46, Lipase 303, Alpha Fetoprotein [Pending], CA 19-9 Antigen [Pending] Height (Feet): 5 Height (Inches): 5.00 Weight (Pounds): 127 General Appearance: lethargic EENT: normal ENT inspection Neck: normal alignment Cardiovascular: normal peripheral pulses, normal rate, regular rhythm Respiratory/Chest: chest wall non-tender, lungs clear, normal breath sounds Abdomen: hypoactive bowel sounds, distended Extremities: normal inspection Edema: no edema noted Arm (L), no edema noted Arm (R), no edema noted Leg (L), no edema noted Leg (R), no edema noted Pedal (L), no edema noted Pedal (R), no edema noted Generalized Neurologic: motor weakness Skin: normal pigmentation, warm/dry Assessment/Plan Problem List: (1) Ascites ICD Codes: R18.8 - Other ascites SNOMED: 094876643 (2) Alcoholic cirrhosis ICD Codes: K70.30 - Alcoholic cirrhosis of liver without ascites SNOMED: 941547727 (3) Renal failure ICD Codes: N19 - Unspecified kidney failure SNOMED: 79943787 (4) Thrombocytopenia ICD Codes: D69.6 - Thrombocytopenia, unspecified SNOMED: 832432006 (5) Abdominal pain ICD Codes: R10.9 - Unspecified abdominal pain SNOMED: 60727413 (6) History of alcohol abuse ICD Codes: F10.11 - Alcohol abuse, in remission SNOMED: 144864614 Status: unchanged Assessment/Plan: abx bp pain control pending pericentesis and dialysis cath cbc bmp Kailash Wyatt DO Aug 09, 2020 09:19
[2020-08-09] MEDS: Pantoprazole Inj IVP SCH ×2 (09:36→21:33)
[2020-08-09] MEDS ORDERED: Morphine Sulfate 2mg/ml Inj(IV/IM USE ONLY) IVP PRN (09:45)
--- NOTE | 2020-08-09 10:10 | NUR ---
NURSE NOTES:Dr Gonzales notified that patient unable to swallow and that I was unable to administer Lactulose.
--- NOTE | 2020-08-09 10:33 | General Progress Note ---
Subjective ROS Limited/Unobtainable: No Allergies: Coded Allergies: No Known Allergies (Unverified , 07/08/16) Objective Last 24 Hour Vital Signs Date Time Temp Pulse Resp B/P (MAP) Pulse Ox O2 Delivery O2 Flow Rate FiO2 08/09/20 08:00 92 08/09/20 08:00 Room Air 08/09/20 08:00 97.2 99 18 129/71 (90) 100 08/09/20 04:00 97.8 89 18 134/78 (96) 99 08/09/20 04:00 97 08/09/20 04:00 Room Air 08/09/20 00:00 Room Air 08/09/20 00:00 96.9 84 20 126/76 (93) 99 08/09/20 00:00 100 08/08/20 21:00 93 08/08/20 20:00 Room Air 08/08/20 20:00 97.1 93 18 131/73 (92) 99 08/08/20 16:00 Room Air 08/08/20 16:00 96.9 100 16 135/73 (93) 100 08/08/20 15:28 96 08/08/20 12:00 Room Air 08/08/20 12:00 96.8 96 18 109/64 (79) 100 08/08/20 11:41 96 Intake and Output 08/08/20 08/09/20 19:00 07:00 Intake Total 362.5 ml 0 ml Output Total 50 ml 100 ml Balance 312.5 ml -100 ml Intake Oral 0 ml 0 ml IV Total 362.5 ml Output Urine Total 50 ml 100 ml Laboratory Tests 08/08/20 10:50: Sodium Level 123L, Potassium Level 4.7, Chloride Level 91L, Carbon Dioxide Level 20L, Anion Gap 12, Blood Urea Nitrogen 32H, Creatinine 3.0H, Estimat Glomerular Filtration Rate 21.0, Glucose Level 92, Osmolality 274L, Lactic Acid Level 3.90H , Uric Acid 7.6H, Calcium Level 8.4L, Phosphorus Level 4.1, Magnesium Level 2.6H , Iron Level 89, Total Iron Binding Capacity 110L, Percent Iron Saturation 81H, Unsaturated Iron Binding 21L, Ferritin 305, Total Bilirubin 15.7H, Direct Bi lirubin 11.9H, Gamma Glutamyl Transpeptidase 201H, Aspartate Amino Transf (AST/SGOT) 216H, Alanine Aminotransferase (ALT/SGPT) 84H, Alkaline Phosphatase 166H, Ammonia 149H, Total Creatine Kinase 41, C-Reactive Protein, Quantitative 7.9H, Pro-B-Type Natriuretic Peptide 724H, Total Protein 7.5, Albumin 2.2L, Globulin 5.3, Albumin/Globulin Ratio 0.4L, Triglycerides Level 53, Cholesterol Level < 50, LDL Cholesterol 31, HDL Cholesterol 15L, Cholesterol/HDL Ratio 3.3, Vitamin B12 Level 1959H, Folate 13.3, Thyroid Stimulating Hormone (TSH) 1.411 08/08/20 14:30: Urine Osmolality 293L, Urine Random Sodium < 20L, Urine Opiates Screen PositiveH , Urine Barbiturates Screen Negative, Phencyclidine (PCP) Screen Negative, Urine Amphetamines Screen Negative, Urine Benzodiazepines Screen Negative, Urine Cocaine Screen Negative, Urine Marijuana (THC) Screen Negative 08/08/20 17:00: Lactic Acid Level 4.50H 08/09/20 00:04: POC Whole Blood Glucose 69L 08/09/20 03:35: White Blood Count 14.5#H, Red Blood Count 2.23L, Hemoglobin 8.1L, Hematocrit 22.8L, Mean Corpuscular Volume 102H, Mean Corpuscular Hemoglobin 36.1H, Mean Corpuscular Hemoglobin Concent 35.3, Red Cell Distribution Width 16.3H, Platelet Count 70L, Mean Platelet Volume 10.8H, Neutrophils (%) (Auto) , Lymphocytes (%) (Auto) , Monocytes (%) (Auto) , Eosinophils (%) (Auto) , Basophils (%) (Auto) , Neutrophils % (Manual) [Pending], Lymphocytes % (Manual) [Pending], Platelet Estimate [Pending], Platelet Morphology [Pending], Erythrocyte Sedimentation Rate 130H, Prothrombin Time 28.1H, Prothromb Time International Ratio 2.8H, Activated Partial Thromboplast Time 68H, Sodium Level 125L, Potassium Level 5.3H , Chloride Level 93L, Carbon Dioxide Level 19L, Anion Gap 14, Blood Urea Nitrogen 36H, Creatinine 3.6H, Estimat Glomerular Filtration Rate 17.0, Glucose Level 70L, Lactic Acid Level 6.50H, Calcium Level 8.7, Total Bilirubin 16.6H, Direct Bilirubin 12.3H, Aspartate Amino Transf (AST/SGOT) 206H, Alanine Aminotransferase (ALT/SGPT) 81H, Alkaline Phosphatase 168H, Ammonia 173H, Total Protein 7.1, Albumin 2.0L, Globulin 5.1, Albumin/Globulin Ratio 0.4L, Amylase Level 46, Lipase 303, Alpha Fetoprotein [Pending], CA 19-9 Antigen [Pending] 08/09/20 09:52: Lactic Acid Level [Pending] Height (Feet): 5 Height (Inches): 5.00 Weight (Pounds): 127 General Appearance: lethargic EENT: normal ENT inspection Neck: supple Cardiovascular: normal peripheral pulses Respiratory/Chest: decreased breath sounds Abdomen: normal bowel sounds, non tender, soft Extremities: non-tender Assessment/Plan Problem List: (1) History of alcohol abuse ICD Codes: F10.11 - Alcohol abuse, in remission SNOMED: 473242192 (2) Abdominal pain ICD Codes: R10.9 - Unspecified abdominal pain SNOMED: 10485709 (3) Thrombocytopenia ICD Codes: D69.6 - Thrombocytopenia, unspecified SNOMED: 655241968 (4) Ascites ICD Codes: R18.8 - Other ascites SNOMED: 482323874 (5) Anemia, macrocytic ICD Codes: D53.9 - Nutritional anemia, unspecified SNOMED: 00962667 (6) Gallbladder sludge ICD Codes: K82.8 - Other specified diseases of gallbladder SNOMED: 94695267, 84988276 (7) Pancreatic lesion ICD Codes: K86.9 - Disease of pancreas, unspecified SNOMED: 4618920 (8) Hiatal hernia ICD Codes: K44.9 - Diaphragmatic hernia without obstruction or gangrene SNOMED: 35825482, 98331903 Status: unchanged Assessment/Plan: paracentesis>>>canceled by IR due to elevated INR albumin iv tumor markers MRI when more stable change lactulose to enema may need NGT adeel cautious add xifaxan pending possible HD add FFP repeat labs Nelson Bell MD Aug 09, 2020 10:33
--- NOTE | 2020-08-09 10:36 | NUR ---
NURSE NOTES:Dr Gonzales rounded on patient and placed order for dialysis catheter placement, called family who had not spoken to DR regarding procedure. MD notified that family had questions regarding procedure. Patient's mother called back and stated she had spoken with the doctor and is consenting to the procedure for dialysis and dialysis catheter placement. Consent verified with second RN, Adolfo. Patient sister also called for an update on her sisters status, provided sister with telephone number for Dr Gonzales.
--- NOTE | 2020-08-09 10:45 | NUR ---
PT NOTE Received MD order for PT evaluation. Elbert ZAMORA requesting to hold PT today due to medical instability, will follow.
--- NOTE | 2020-08-09 11:17 | Nephrology Progress Note ---
Assessment/Plan Problem List: (1) Hepatorenal syndrome (2) ILEANA (acute kidney injury) (3) Alcoholic cirrhosis (4) Ascites (5) Anemia, macrocytic Assessment Acute on chronic renal failure Hyponatremia secondary to third spacing as a result of cirrhosis, ascites Jaundice Anemia, thrombocytopenia Pancreatitis, enterocolitis UTI, sepsis Plan August 09: Patient seen and examined. Discussed with NOAH Boswell. Patient has worsening renal failure and mental status is declining. Will arrange for insertion of a nontunneled dialysis catheter and attempt to dialyze. Discussed with mother Moni at [phone] who is agreeable to give consent for catheter. Previously: Continue per GI Perez catheter Urine studies 3% saline trial Kidney ultrasound 2D echocardiogram Per orders Subjective ROS Limited/Unobtainable: Yes Objective Objective Last 24 Hour Vital Signs Date Time Temp Pulse Resp B/P (MAP) Pulse Ox O2 Delivery O2 Flow Rate FiO2 08/09/20 08:00 92 08/09/20 08:00 Room Air 08/09/20 08:00 97.2 99 18 129/71 (90) 100 08/09/20 04:00 97.8 89 18 134/78 (96) 99 08/09/20 04:00 97 08/09/20 04:00 Room Air 08/09/20 00:00 Room Air 08/09/20 00:00 96.9 84 20 126/76 (93) 99 08/09/20 00:00 100 08/08/20 21:00 93 08/08/20 20:00 Room Air 08/08/20 20:00 97.1 93 18 131/73 (92) 99 08/08/20 16:00 Room Air 08/08/20 16:00 96.9 100 16 135/73 (93) 100 08/08/20 15:28 96 08/08/20 12:00 Room Air 08/08/20 12:00 96.8 96 18 109/64 (79) 100 08/08/20 11:41 96 Intake and Output 0 08/08/20 08/09/20 19:00 07:00 Intake Total 362.5 ml 0 ml Output Total 50 ml 100 ml Balance 312.5 ml -100 ml Intake Oral 0 ml 0 ml IV Total 362.5 ml Output Urine Total 50 ml 100 ml Current Medications Medications (Trade) Dose Ordered Sig/Baldemar Route PRN Reason Start Time Stop Time Status Last Admin Dose Admin Albumin Human 100 ml @ 100 mls/hr ONCE ONCE IV 08/09/20 10:30 08/09/20 11:29 Ceftriaxone Sodium 1 gm/ Dextrose 55 ml @ 110 mls/hr Q24H IVPB 08/09/20 02:00 08/16/20 01:59 08/09/20 03:33 Iohexol (OMNIPAQUE-300 100ml) 100 ml NOW PRN INJ Radiology Procedure 08/08/20 02:00 08/10/20 01:59 Lactulose (Cephulac) 30 gm THREE TIMES A DAY ORAL 08/09/20 09:00 09/08/20 08:59 Lactulose 200 gm/ Sterile Water 1,000 ml @ 0 mls/hr EVERY 8 HOURS IRRIG 08/09/20 14:00 08/10/20 23:59 Morphine Sulfate (Morphine Sulfate) 2 mg Q4H PRN IVP For Pain 08/09/20 09:45 08/16/20 09:44 Pantoprazole (Protonix) 40 mg EVERY 12 HOURS IVP 08/08/20 09:00 09/07/20 08:59 08/09/20 09:36 Rifaximin (Xifaxan) 550 mg EVERY 12 HOURS ORAL 08/09/20 21:00 08/16/20 20:59 Laboratory Tests 08/08/20 14:30: Urine Osmolality 293L, Urine Random Sodium < 20L, Urine Opiates Screen PositiveH , Urine Barbiturates Screen Negative, Phencyclidine (PCP) Screen Negative, Urine Amphetamines Screen Negative, Urine Benzodiazepines Screen Negative, Urine Cocaine Screen Negative, Urine Marijuana (THC) Screen Negative 08/08/20 17:00: Lactic Acid Level 4.50H 08/09/20 00:04: POC Whole Blood Glucose 69L 08/09/20 03:35: Lactic Acid Level 6.50H, White Blood Count 14.5#H, Red Blood Count 2.23L, Hemoglobin 8.1L, Hematocrit 22.8L, Mean Corpuscular Volume 102H, Mean Corpuscular Hemoglobin 36.1H, Mean Corpuscular Hemoglobin Concent 35.3, Red Cell Distribution Width 16.3H, Platelet Count 70L, Mean Platelet Volume 10.8H, Neutrophils (%) (Auto) , Lymphocytes (%) (Auto) , Monocytes (%) (Auto) , Eosinophils (%) (Auto) , Basophils (%) (Auto) , Differential Total Cells Counted 100, Neutrophils % (Manual) 88H, Lymphocytes % (Manual) 9L, Monocytes % (Manual) 3, Eosinophils % (Manual) 0, Basophils % (Manual) 0, Band Neutrophils 0, Platelet Estimate DecreasedL, Platelet Morphology Normal, Hypochromasia 1+, Anisocytosis 1+, Macrocytosis 1+, Erythrocyte Sedimentation Rate 130H, Prothrombin Time 28.1H, Prothromb Time International Ratio 2.8H, Activated Partial Thromboplast Time 68H, Sodium Level 125L, Potassium Level 5.3H, Chloride Level 93L, Carbon Dioxide Level 19L, Anion Gap 14, Blood Urea Nitrogen 36H, Cre atinine 3.6H, Estimat Glomerular Filtration Rate 17.0, Glucose Level 70L, Calcium Level 8.7, Total Bilirubin 16.6H, Direct Bilirubin 12.3H, Aspartate Amino Transf (AST/SGOT) 206H, Alanine Aminotransferase (ALT/SGPT) 81H, Alkaline Phosphatase 168H, Ammonia 173H, Total Protein 7.1, Albumin 2.0L, Globulin 5.1, Albumin/Globulin Ratio 0.4L, Amylase Level 46, Lipase 303, Alpha Fetoprotein [Pending], CA 19-9 Antigen [Pending] 08/09/20 09:52: Lactic Acid Level 7.00H Height (Feet): 5 Height (Inches): 5.00 Weight (Pounds): 127 General Appearance: lethargic Cardiovascular: tachycardia Respiratory/Chest: decreased breath sounds Abdomen: distended Vicente Gonzales MD Aug 09, 2020 11:17
--- NOTE | 2020-08-09 11:57 | NUR ---
CASE MANAGEMENT:REVIEW 08/09/20 SI: ALCOHOLIC CIRRHOSIS. ILEANA HEPATORENAL SYNDROME. ASCITES 97.2 99 18 129/71 100% ON RA WBC+14.5 H/H-8.1/22.8 PLT-70 NA-125 K+5.3 BUN+36 CR+3.6 IS: IV ROCEPHIN Q24 IVF@30/HR LACTULOSE PO TID IV PROTONIX Q12 : STEP DOWN UNIT DCP; FROM HOME
[2020-08-09 12:00] VITALS: BP 106/56
--- NOTE | 2020-08-09 12:29 | NUR ---
NURSE NOTES:Non-administered lactulose, Dr Bell ordered enema as patient is unable to swallow.
--- NOTE | 2020-08-09 12:37 | Cardiac Electrophysiology PN ---
Subjective Subjective [id number] Objective Last 24 Hour Vital Signs Date Time Temp Pulse Resp B/P (MAP) Pulse Ox O2 Delivery O2 Flow Rate FiO2 08/09/20 12:00 Room Air 08/09/20 12:00 96.9 88 19 106/56 (73) 100 08/09/20 08:00 92 08/09/20 08:00 Room Air 08/09/20 08:00 97.2 99 18 129/71 (90) 100 08/09/20 04:00 97.8 89 18 134/78 (96) 99 08/09/20 04:00 97 08/09/20 04:00 Room Air 08/09/20 00:00 Room Air 08/09/20 00:00 96.9 84 20 126/76 (93) 99 08/09/20 00:00 100 08/08/20 21:00 93 08/08/20 20:00 Room Air 08/08/20 20:00 97.1 93 18 131/73 (92) 99 08/08/20 16:00 Room Air 08/08/20 16:00 96.9 100 16 135/73 (93) 100 08/08/20 15:28 96 Intake and Output 08/08/20 08/09/20 19:00 07:00 Intake Total 362.5 ml 0 ml Output Total 50 ml 100 ml Balance 312.5 ml -100 ml Intake Oral 0 ml 0 ml IV Total 362.5 ml Output Urine Total 50 ml 100 ml Laboratory Tests Test 08/08/20 14:30 08/08/20 17:00 08/09/20 00:04 08/09/20 03:35 Urine Osmolality 293 mOsm/kg (429-449) L Urine Random Sodium < 20 mmol/L (20-110) L Urine Opiates Screen Positive (NEGATIVE) H Urine Barbiturates Screen Negative (NEGATIVE) Phencyclidine (PCP) Screen Negative (NEGATIVE) Urine Amphetamines Screen Negative (NEGATIVE) Urine Benzodiazepines Screen Negative (NEGATIVE) Urine Cocaine Screen Negative (NEGATIVE) Urine Marijuana (THC) Screen Negative (NEGATIVE) Lactic Acid Level 4.50 mmol/L (0.4-2.0) H 6.50 mmol/L (0.4-2.0) H POC Whole Blood Glucose 69 MG/DL (74-106) L White Blood Count 14.5 K/UL (4.8-10.8) #H Red Blood Count 2.23 M/UL (4.20-5.40) L Hemoglobin 8.1 G/DL (12.0-16.0) L Hematocrit 22.8 % (37.0-47.0) L Mean Corpuscular Volume 102 FL (80-99) H Mean Corpuscular Hemoglobin 36.1 PG (27.0-31.0) H Mean Corpuscular Hemoglobin Concent 35.3 G/DL (32.0-36.0) Red Cell Distribution Width 16.3 % (11.6-14.8) H Platelet Count 70 K/UL (150-450) L Mean Platelet Volume 10.8 FL (6.5-10.1) H Neutrophils (%) (Auto) % (45.0-75.0) Lymphocytes (%) (Auto) % (20.0-45.0) Monocytes (%) (Auto) % (1.0-10.0) Eosinophils (%) (Auto) % (0.0-3.0) Basophils (%) (Auto) % (0.0-2.0) Differential Total Cells Counted 100 Neutrophils % (Manual) 88 % (45-75) H Lymphocytes % (Manual) 9 % (20-45) L Monocytes % (Manual) 3 % (1-10) Eosinophils % (Manual) 0 % (0-3) Basophils % (Manual) 0 % (0-2) Band Neutrophils 0 % (0-8) Platelet Estimate Decreased L Platelet Morphology Normal Hypochromasia 1+ Anisocytosis 1+ Macrocytosis 1+ Erythrocyte Sedimentation Rate 130 MM/HR (0-20) H Prothrombin Time 28.1 SEC (9.30-11.50) H Prothromb Time International Ratio 2.8 (0.9-1.1) H Activated Partial Thromboplast Time 68 SEC (23-33) H Sodium Level 125 MMOL/L (136-145) L Potassium Level 5.3 MMOL/L (3.5-5.1) H Chloride Level 93 MMOL/L (98-107) L Carbon Dioxide Level 19 MMOL/L (21-32) L Anion Gap 14 mmol/L (5-15) Blood Urea Nitrogen 36 mg/dL (7-18) H Creatinine 3.6 MG/DL (0.55-1.30) H Estimat Glomerular Filtration Rate 17.0 mL/min (>60) Glucose Level 70 MG/DL (74-106) L Calcium Level 8.7 MG/DL (8.5-10.1) Total Bilirubin 16.6 MG/DL (0.2-1.0) H Direct Bilirubin 12.3 MG/DL (0.0-0.3) H Aspartate Amino Transf (AST/SGOT) 206 U/L (15-37) H Alanine Aminotransferase (ALT/SGPT) 81 U/L (12-78) H Alkaline Phosphatase 168 U/L (46-116) H Ammonia 173 umol/L (11-32) H Total Protein 7.1 G/DL (6.4-8.2) Albumin 2.0 G/DL (3.4-5.0) L Globulin 5.1 g/dL Albumin/Globulin Ratio 0.4 (1.0-2.7) L Amylase Level 46 U/L (25-115) Lipase 303 U/L (73-393) Alpha Fetoprotein Pending CA 19-9 Antigen Pending Test 08/09/20 09:52 Lactic Acid Level 7.00 mmol/L (0.66-2.22) H Microbiology Date/Time Source Procedure Growth Status 08/08/20 14:10 Nasopharynx Coronavirus COVID-19 PCR (SHERYL) - Final Complete 08/08/20 02:00 Urine,Clean Catch Urine Culture - Preliminary NO GROWTH AFTER 24 HOURS Resulted Tacos Cooley MD Aug 09, 2020 12:37
[2020-08-09] MEDS ORDERED: Lidocaine 1% Plain 30 ml INJ PRN (12:39)
[2020-08-09] MEDS ORDERED: Heparin1,000 units/500ml Premix(Conc:2 units/ml) IV PRN (12:40)
[2020-08-09] MEDS: Dextrose 10% 1,000 ML IV SCH (13:00)
[2020-08-09] MEDS: Lactulose 200 GM in Water Sterile For Irrig 1000ml 700 ML IRRIG SCH ×2 (14:00→22:09)
--- NOTE | 2020-08-09 14:19 | NUR ---
RADIOLOGY NOTE: RIJ NON TUNNELED DIALYSIS CATHETER PLACEMENT BY DR. JEFFERS. FA
--- NOTE | 2020-08-09 15:19 | NUR ---
NURSE NOTES: Fresh frozen plasma transfusion started.
--- NOTE | 2020-08-09 15:26 | NUR ---
NURSE NOTES:Contacted Dr Bell as patient BP dropped to 85/38, patient is very lethargic.
--- NOTE | 2020-08-09 15:26 | Pre-Procedure Note/Attestation ---
Pre-Procedure Note/Attestation Complete Prior to Procedure Planned Procedure: right Procedure Narrative: BEDSIDE TEMPORARY DIALYSIS CATHETER INSERTION Indications for Procedure Pre-Operative Diagnosis: RENAL FAILURE Attestation I attest that I discussed the nature of the procedure; its benefits; risks and complications; and alternatives (and the risks and benefits of such alternatives), prior to the procedure, with the patient (or the patient's legal service representative). I attest that, if there was a reasonable possibility of needing a blood transfusion, the patient (or the patient's legal service representative) was given the [facility] standardized written summary, pursuant to the Wong Javid Blood Safety Act ([place] Health and Safety Code # 1645, as amended). I attest that I re-evaluated the patient just prior to the surgery and that there has been no change in the patient's H&P, except as documented below: Ramesh Gatica MD Aug 09, 2020 15:26
--- NOTE | 2020-08-09 15:27 | Brief Operative Note ---
Immediate Post Operative Note Operative Note Pre-op Diagnosis: RENAL FAILURE Procedure: BEDSIDE TEMPORARY DIALYSIS CATHETER INSERTION WITH US GUIDANCE Post-op Diagnosis: same as pre-op Findings: consistent w/pre-op dx studies Surgeon: RAMESH JEFFERS MD, MA Specimen: none Complications: none Condition: stable Fluids: 0 Estimated Blood Loss: minimal Implant(s) used?: No Ramesh Jeffers MD Aug 09, 2020 15:27
--- NOTE | 2020-08-09 15:35 | Diagnostic Imaging Report ---
Indication: Patient requires hemodialysis. Findings: After the indications, procedure, risks, complications, and alternatives of the procedure were explained, written informed consent was obtained. The neck was prepped with chlorhexidine. All elements of maximal sterile barrier technique were followed including usage of a cap, mask, sterile gown, sterile gloves, hand hygiene and a large sterile sheet as well as sterile ultrasound and Probe cover. 1% lidocaine was used to anesthetize the skin. Sonographic evaluation was performed demonstrating a patent and compressible right internal jugular vein. Access was obtained under real-time ultrasound guidance using a micropuncture 21-gauge needle. The micropuncture sheath was exchanged over an 0.035 wire, which was advanced toward the heart.. Needle exchanged for a dilator. A temporary hemodialysis catheter was then advanced over the wire. Wire was removed. Catheter was secured to the skin using 2-0 Prolene suture. Both ports aspirate and flush easily. The procedure was performed at the bedside. Final position of the cather will be determined by xray, which demonstrates appropriate position of tip in the right atrium. Impression: Successful placement of right jugular hemodialysis catheter, at bedside with ultrasound guidance, confirmed with subsequently performed chest x-ray demonstrating tip in the right atrium.
[2020-08-09 15:57] VITALS: BP 108/68
--- NOTE | 2020-08-09 16:27 | NUR ---
INSURANCE CLINICALS/REVIEW FAXED TO [facility] [phone]
--- NOTE | 2020-08-09 16:27 | Surgery Progress Note ---
Surgery Progress Note Subjective Additional Comments right IJ temp HD line placed. bleeding from site after. pressures held now hemostatic new dressings applied nursing care greatly appreciated +BM Objective Last 24 Hour Vital Signs Date Time Temp Pulse Resp B/P (MAP) Pulse Ox O2 Delivery O2 Flow Rate FiO2 08/09/20 16:00 Room Air 08/09/20 15:57 96.3 88 16 108/68 (81) 100 08/09/20 12:00 Room Air 08/09/20 12:00 96.9 88 19 106/56 (73) 100 08/09/20 12:00 97 08/09/20 08:00 92 08/09/20 08:00 Room Air 08/09/20 08:00 97.2 99 18 129/71 (90) 100 08/09/20 04:00 97.8 89 18 134/78 (96) 99 08/09/20 04:00 97 08/09/20 04:00 Room Air 08/09/20 00:00 Room Air 08/09/20 00:00 96.9 84 20 126/76 (93) 99 08/09/20 00:00 100 08/08/20 21:00 93 08/08/20 20:00 Room Air 08/08/20 20:00 97.1 93 18 131/73 (92) 99 I&O Intake and Output 08/08/20 08/09/20 19:00 07:00 Intake Total 362.5 ml 0 ml Output Total 50 ml 100 ml Balance 312.5 ml -100 ml Intake Oral 0 ml 0 ml IV Total 362.5 ml Output Urine Total 50 ml 100 ml Dressing: other Wound: other Cardiovascular: RSR Respiratory: decreased breath sounds Abdomen: soft, non-tender, present bowel sounds Extremities: no edema, no cyanosis Laboratory Tests Test 08/08/20 17:00 08/09/20 00:04 08/09/20 03:35 08/09/20 09:52 Lactic Acid Level 4.50 mmol/L (0.4-2.0) H 6.50 mmol/L (0.4-2.0) H 7.00 mmol/L (0.66-2.22) H POC Whole Blood Glucose 69 MG/DL (74-106) L White Blood Count 14.5 K/UL (4.8-10.8) #H Red Blood Count 2.23 M/UL (4.20-5.40) L Hemoglobin 8.1 G/DL (12.0-16.0) L Hematocrit 22.8 % (37.0-47.0) L Mean Corpuscular Volume 102 FL (80-99) H Mean Corpuscular Hemoglobin 36.1 PG (27.0-31.0) H Mean Corpuscular Hemoglobin Concent 35.3 G/DL (32.0-36.0) Red Cell Distribution Width 16.3 % (11.6-14.8) H Platelet Count 70 K/UL (150-450) L Mean Platelet Volume 10.8 FL (6.5-10.1) H Neutrophils (%) (Auto) % (45.0-75.0) Lymphocytes (%) (Auto) % (20.0-45.0) Monocytes (%) (Auto) % (1.0-10.0) Eosinophils (%) (Auto) % (0.0-3.0) Basophils (%) (Auto) % (0.0-2.0) Differential Total Cells Counted 100 Neutrophils % (Manual) 88 % (45-75) H Lymphocytes % (Manual) 9 % (20-45) L Monocytes % (Manual) 3 % (1-10) Eosinophils % (Manual) 0 % (0-3) Basophils % (Manual) 0 % (0-2) Band Neutrophils 0 % (0-8) Platelet Estimate Decreased L Platelet Morphology Normal Hypochromasia 1+ Anisocytosis 1+ Macrocytosis 1+ Erythrocyte Sedimentation Rate 130 MM/HR (0-20) H Prothrombin Time 28.1 SEC (9.30-11.50) H Prothromb Time International Ratio 2.8 (0.9-1.1) H Activated Partial Thromboplast Time 68 SEC (23-33) H Sodium Level 125 MMOL/L (136-145) L Potassium Level 5.3 MMOL/L (3.5-5.1) H Chloride Level 93 MMOL/L (98-107) L Carbon Dioxide Level 19 MMOL/L (21-32) L Anion Gap 14 mmol/L (5-15) Blood Urea Nitrogen 36 mg/dL (7-18) H Creatinine 3.6 MG/DL (0.55-1.30) H Estimat Glomerular Filtration Rate 17.0 mL/min (>60) Glucose Level 70 MG/DL (74-106) L Calcium Level 8.7 MG/DL (8.5-10.1) Total Bilirubin 16.6 MG/DL (0.2-1.0) H Direct Bilirubin 12.3 MG/DL (0.0-0.3) H Aspartate Amino Transf (AST/SGOT) 206 U/L (15-37) H Alanine Aminotransferase (ALT/SGPT) 81 U/L (12-78) H Alkaline Phosphatase 168 U/L (46-116) H Ammonia 173 umol/L (11-32) H Total Protein 7.1 G/DL (6.4-8.2) Albumin 2.0 G/DL (3.4-5.0) L Globulin 5.1 g/dL Albumin/Globulin Ratio 0.4 (1.0-2.7) L Amylase Level 46 U/L (25-115) Lipase 303 U/L (73-393) Alpha Fetoprotein Pending CA 19-9 Antigen Pending Plan Problems: (1) Enterocolitis (2) Hiatal hernia (3) Pancreatic lesion (4) Gallbladder sludge (5) Lactic acidosis (6) Anemia, macrocytic (7) Ascites (8) Alcoholic cirrhosis (9) Pancreatitis (10) Renal failure (11) Thrombocytopenia (12) Metabolic acidosis (13) Abdominal pain Assessment & Plan: 40F alcoholic cirrhosis liver insufficiency ascites r equiring para now with abd pain. recent admission to outside facility. ct noted. exam not acute abdomen. enteritis. panc cyst. no acute surgical intervention. okay for diet. fluids. para prn. will follow with exam and recs. thank you HD cath in hemostasis now begin HD trend labs abd exam stable ABDOMEN: Liver: Hepatomegaly. Gallbladder and bile ducts: Cholelithiasis/sludge. Mildly distended gallbladder, nonspecific. No ductal dilation. Pancreas: Absent IV contrast limit evaluation and assessment of size of the pancreatic lesion. There is heterogeneous mass in the head/uncinate process of the pancreas measuring up to 4.7 cm. This appears increased in size. Prominent tail of the pancreas is again noted. Spleen: Unremarkable. No splenomegaly. Adrenals: Unremarkable. No mass. Kidneys and ureters: Unremarkable. No obstructing stones. No hydronephrosis. Stomach and bowel: Thickening of the colonic wall, nonspecific and may partly reflect reactive change. Recommend clinical correlation and follow-up to exclude developing colitis. This is most pronounced in the ascending colon. Multiple fluid-filled dilated small bowel loops with scattered air-fluid levels which may reflect ileus/enteritis. Recommend clinical correlation and follow-up to exclude partial developing loose obstruction in the distal small bowel. Absent IV and oral contrast as well as diffuse ascites and soft tissue stranding limit evaluation. PELVIS: Appendix: No findings to suggest acute appendicitis. Bladder: Unremarkable. No stones. Reproductive: Unremarkable as visualized. ABDOMEN and PELVIS: Intraperitoneal space: Diffuse soft tissue stranding in the intra- abdominal fat and mesentery, nonspecific. No free air. Moderate to large free fluid in the abdomen. Bones/joints: No acute fracture. No dislocation. Soft tissues: Mild anasarca. Vasculature: Unremarkable. No abdominal aortic aneurysm. Lymph nodes: Prominent inguinal lymph nodes, probably reactive. IMPRESSION: 1. Absent IV and oral contrast limit evaluation. Mild to moderate ascites 2. Sludge/gallstones and distended gallbladder, nonspecific. 3. Follow-up HIDA scan could be obtained to exclude developing acute cholecystitis as indicated. 4. Pancreatic lesion/abnormality, which appears increased in size. Although focal pancreatitis/cystic/necrotic change can give this appearance, malignancy is difficult to exclude. 5. No free air. 6. Findings which may reflect diffuse enterocolitis. Recommend clinical correlation and follow-up to exclude partial distal small bowel obstruction. 7. Hepatomegaly. (14) History of alcohol abuse (15) Scleral icterus (16) Encounter for removal of sutures (17) Encounter for wound re-check Joao Jarvis Aug 09, 2020 16:27
--- NOTE | 2020-08-09 16:45 | NUR ---
NURSE NOTES: Received report from NOAH Boswell. Pt is lethargic, opens eyes to shaking but non-verbal. Pt does not appear to be in respiratory/cardiac distress. synthetic soil blocks pulper shows ST of 110 and pt is saturating at 100% on room air. BP in normal range post HD, 1L out. Perez is intact and draining well to gravity. Low urine output and tea colored urine noted. Pt has R FA 20g, R AC 20g, and L FA 20g, all flushing well and asymptomatic, receiving D10W 30ml/hr. Fall risk and aspiration risk noted and reinforced. HOB is elevated, call light within reach, side rails x3, bed alarm on, bed locked and in lowest position. Will continue to monitor. Will continue plan of care.
--- NOTE | 2020-08-09 17:00 | NUR ---
NURSE NOTES:Pulled Albumen from Pyxus and gave to [employer] driver.
--- NOTE | 2020-08-09 17:42 | NUR ---
NURSE NOTES:Notified Dr Cooley that patient had a change in rhythm to atrial flutter, EKG done and sent to .
--- NOTE | 2020-08-09 19:15 | Consultation ---
DATE OF CONSULTATION: 08/09/2020 CARDIOLOGY CONSULTATION CONSULTING PHYSICIAN: Tacos Cooley M.D. REFERRING PHYSICIAN: Kailash Mi M.D. REASON FOR CONSULTATION: Tachycardia. HISTORY OF PRESENT ILLNESS: The patient is a 40-year-old lady with history of alcoholic cirrhosis and portal hypertension and esophageal varices as well as history of pancreatitis, tobacco abuse, and PTSD, who was brought in by ambulance for abdominal pain of 4 days' duration. The patient also has increased swelling in her legs. The patient had paracentesis last time 10 days ago at [facility] and prior to that had 2 liters of paracentesis at [facility]. The patient says she has not drink alcohol for about 18 days days, has been drunk 2 bottles of wine a day. The patient was admitted and also noted to be in acute renal failure and elevated troponin. The patient is scheduled to undergo Johan catheter placement for hemodialysis as well as paracentesis. REVIEW OF SYSTEMS: Cannot be obtained as currently the patient is confused. PAST MEDICAL HISTORY: As mentioned above. FAMILY HISTORY: Noncontributory. SOCIAL HISTORY: She has history of heavy drinking. PHYSICAL EXAMINATION: VITAL SIGNS: Blood pressure 105/56, pulse is 90, respirations 18, temperature 97. HEAD AND NECK: Showed no JVD. LUNGS: Coarse rhonchi. CARDIOVASCULAR: Regular S1 and S2 with no gallop. ABDOMEN: Soft with ascites. EXTREMITIES: 2+ pitting edema. LABORATORY DATA: Lab show white count of 14.1, hemoglobin 8.5, hematocrit 22.8, and platelet count of only 70. Sodium 125, potassium 5.3, BUN of 36, creatinine 3.6, and glucose of 70. Lactic acid is 7. Troponin negative on August 08, 2020. ASSESSMENT AND PLAN: 1. Tachycardia due to sepsis, renal failure, hyponatremia, and cirrhosis of the liver. There is no evidence of atrial fibrillation, just sinus tachycardia. We will get an echocardiogram to evaluate for ejection fraction and wall motion abnormality. 2. Cirrhosis of the liver, status post multiple paracenteses. The patient will have further evaluation by Dr. Bell and paracentesis is pending. 3. History of esophageal varices. 4. Thrombocytopenia due to alcohol. 5. History of heavy alcohol use. 6. Pancreatic lesion. 7. Acute renal failure. The patient was ordered to undergo hemodialysis per Dr. Gonzales. Thank you very much for allowing me to participate in the care of this patient. Please do not hesitate to contact me for any questions regarding my evaluation. Tacos Cooley M.D. DR: ARIELA JOB#: [id number] CC:
--- NOTE | 2020-08-09 19:46 | NUR ---
NURSE HAND-OFF REPORT: Important Events on Shift:Patient had Right IJ placed, confirmed by MD and patient dialyzed today with 1 liter out. Patient also scheduled for paracentesis but was unable to go ahead due to elevated INR leve. Patient Status: guarded Diet: NPO Pending Orders: Pending Results/Labs: Pending MD notification: Latest Vital Signs: Temperature 96.3 , Pulse 97 , B/P 108 /68 , Respiratory Rate 16 , O2 SAT 100 , Room Air, O2 Flow Rate . Vital Sign Comment: EKG Rhythm: SR with A-flutter Rhythm change?: Y Notified?: Y -Dr Lenora TELLO Response: EKG and troponin for tomorrow, orders placed. Latest Hurt Fall Score: 45 Fall Risk: High Risk Safety Measures: Call light Within Reach, Bed Alarm Zone 2, Side Rails Side Rails x2, Bed position Low and Locked. Fall Precautions: Patient Fall Education Report given to NOAH Cantor.
[2020-08-09 19:50] VITALS: BP 121/66
--- NOTE | 2020-08-09 21:10 | NUR ---
NURSE NOTES: Pt on room air desaturated from 99% to 84%. Placed pt on 2L NC, O2 saturation increased to 99%. Will continue plan of care. Will continue to monitor.
--- NOTE | 2020-08-09 22:25 | NUR ---
NURSE NOTES: Started pt on FFP at 2222. Initial vital signs taken. Pt is currently stable and appears to be in no distress. Will continue to monitor and retake vitals in 15 minutes.
--- NOTE | 2020-08-09 23:40 | NUR ---
NURSE NOTES: Received patient and report for NOAH Cody/ NOAH Cantor. Pt lethargic, eyes open, murmurs when name is called or upon deep pain stimulation, doesn't respond back, afebrile, hypothermic at 96.8 baseline, has no respiratory distress noted. On Nasal Cannula at 2lpm saturating at 100%. With right IJ dialysis catheter done today intact, with scant dried blood, dressing is intact and dry. With right FA 20g, Right AC 20G IV lines intact, patent and asymptomatic. On D10w at 30cc/hr and Fresh frozen plasma going on right now. NO ASE noted. Provided 2 blankets to keep warm left side lying position to relieve lungs and heart from abdominal pressure. needs were attended. Call light within reach. bed rails are up and wheels are locked. Continue to monitor the patient.
[2020-08-10] VITALS (31 sets, daily range): BP systolic 45–118; BP diastolic 22–72
--- NOTE | 2020-08-10 02:00 | NUR ---
NURSE NOTES: Pt asleep in bed. no respiratory distress noted. VS WNL. Pt saturating at 98-99%. turning as protocol to releive abdominal and thoracic pressure. Continue to monitor the patient.
[2020-08-10] MEDS: cefTRIAXone 1 GM in D5W 55 ML IVPB SCH (02:01)
[2020-08-10] MEDS: Lactulose 200 GM in Water Sterile For Irrig 1000ml 700 ML IRRIG SCH (05:13)
--- NOTE | 2020-08-10 05:30 | NUR ---
NURSE NOTES: Pt noted to have bloody feces coming out from anus upon insertion of enema apparatus tip. resistance was noted also. Platelet is 70. lactulose enema procedure didn't proceed.charge nurse was made aware of the problem. pt's BP is 102/55, 107 hr, saturating 98% O2. Pt asleep in bed but arousable. Pt was also noted with dry blood around oral mucosa and lips. oral care done. pt tolerated well. no alteration noted. Pt was cleaned and gown was changed. Pt was made comfortable in bed before leaving on left side lying position to relieve abdominal pressure and to provide lung expansion during inhalation. Will inform MD regarding the bloody feces and blood in the mouth. Continue to monitor the Patient.
--- NOTE | 2020-08-10 06:20 | NUR ---
NURSE NOTES: Pt asleep in bed. no respiratory distress noted. ST at 107. Continue to monitor the patient.
--- NOTE | 2020-08-10 07:30 | NUR ---
NURSE HAND-OFF REPORT: Important Events on Shift: blood in stool and dry blood in mouth. Patient Status: VS are stable. ST Diet: npo Pending Orders: n Pending Results/Labs:n Pending MD notification:n Latest Vital Signs: Temperature 97.8 , Pulse 76 , B/P 145 /93 , Respiratory Rate 23 , O2 SAT 95 , Bi-pap, O2 Flow Rate . Vital Sign Comment: n EKG Rhythm: Sinus Rhythm Rhythm change?: N MD Notified?: - MD Response: Latest Hurt Fall Score: 50 Fall Risk: High Risk Safety Measures: Call light Within Reach, Bed Alarm Zone 1, Side Rails Side Rails x3, Bed position Low and Locked. Fall Precautions: Yellow Gown Door Sign Patient Fall Education Report given to NOAH Murphy and NOAH Bradshaw. Pt has no respiratory distress noted. Endorsed to ff up with Dr Bell regarding inability to proceed with lactulose enema because of rectal resistance, blood in stool, dry blood in mouth
--- NOTE | 2020-08-10 08:08 | NUR ---
NURSE NOTES: pt is in bed and asleep. Right AC IV is patent and running D10 @30ml/hr. pt is on left side lateral, fowlers to prevent from further respiratory distress due to ascites. pt is weak and lethargic, A&O x0. pt. is unresponsive to verbal commands. eyes are open, and yellow upon assessment. abdomen is distended from ascites. SCD is applied bilaterally. second dose of lactulose was not given due to rectal bleeding and resistance. labs are elevated, see lab results from 08/09. pt is on teletypesetter monitor showing no signs of cardiac or respiratory distress. bed is in the lowest position, call light is within reach.
[2020-08-10 08:26] LABS: HEMATOCRIT 19.5 % (37.0-47.0); MEAN CORPUSCULAR VOLUME 102 FL (80-99); PLATELET COUNT 78 K/UL (150-450); RED BLOOD COUNT 1.92 M/UL (4.20-5.40); RED CELL DISTRIBUTION WIDTH 16.6 % (11.6-14.8); WHITE BLOOD COUNT 19.9 K/UL (4.8-10.8)
[2020-08-10 08:31] LABS: INR 2.4 (0.9-1.1)
--- NOTE | 2020-08-10 08:43 | NUR ---
NURSE NOTES: notified dr. liao in person about why pt has not received paracentesis due to labs and lactulose due to rectal bleed and resistance
--- NOTE | 2020-08-10 08:52 | General Progress Note ---
Subjective Constitutional: Reports: weakness Allergies: Coded Allergies: No Known Allergies (Unverified , 07/08/16) All Systems: reviewed and negative except above Subjective o2nc sleepy calm Objective Last 24 Hour Vital Signs Date Time Temp Pulse Resp B/P (MAP) Pulse Ox O2 Delivery O2 Flow Rate FiO2 08/10/20 04:00 112 08/10/20 04:00 98.1 120 16 105/61 (76) 100 08/10/20 04:00 Nasal Cannula 2.0 08/10/20 00:00 97.0 109 16 118/67 (84) 100 08/10/20 00:00 Nasal Cannula 2.0 08/09/20 23:44 106 08/09/20 20:00 Room Air 08/09/20 20:00 117 08/09/20 19:50 96.8 110 16 121/66 (84) 100 08/09/20 16:00 97 08/09/20 16:00 Room Air 08/09/20 15:57 96.3 88 16 108/68 (81) 100 08/09/20 12:00 Room Air 08/09/20 12:00 96.9 88 19 106/56 (73) 100 08/09/20 12:00 97 Intake and Output 08/09/20 08/10/20 19:00 07:00 Intake Total 120 ml 505 ml Output Total 125 ml 1100 ml Balance -5 ml -595 ml Intake Oral 0 ml 0 ml IV Total 120 ml 505 ml Output Urine Total 125 ml 100 ml Hemodialysis UF 1000 ml Laboratory Tests 08/09/20 09:02: Hepatitis B Surface Antigen [Pending] 08/09/20 09:52: Lactic Acid Level 7.00H 08/10/20 07:40: Ammonia [Pending] 08/10/20 08:00: White Blood Count [Pending], Red Blood Count [Pending], Hemoglobin [Pending], Hematocrit [Pending], Mean Corpuscular Volume [Pending], Mean Corpuscular Hemoglobin [Pending], Mean Corpuscular Hemoglobin Concent [Pending], Red Cell Distribution Width [Pending], Platelet Count [Pending], Mean Platelet Volume [Pending], Neutrophils (%) (Auto) [Pending], Lymphocytes (%) (Auto) [Pending], Monocytes (%) (Auto) [Pending], Eosinophils (%) (Auto) [Pending], Basophils (%) (Auto) [Pending], Prothrombin Time [Pending], Prothromb Time International Ratio [Pending], Activated Partial Thromboplast Time [Pending], Sodium Level [Pending], Potassium Level [Pending], Chloride Level [Pending], Carbon Dioxide Level [Pending], Blood Urea Nitrogen [Pending], Creatinine [Pending], Estimat G lomerular Filtration Rate [Pending], Glucose Level [Pending], Uric Acid [Pending], Calcium Level [Pending], Phosphorus Level [Pending], Magnesium Level [Pending], Total Bilirubin [Pending], Aspartate Amino Transf (AST/SGOT) [Pending], Alanine Aminotransferase (ALT/SGPT) [Pending], Alkaline Phosphatase [Pending], Troponin I [Pending], C-Reactive Protein, Quantitative [Pending], Pro-B-Type Natriuretic Peptide [Pending], Total Protein [Pending], Albumin [Pending], Globulin [Pending] Height (Feet): 5 Height (Inches): 5.00 Weight (Pounds): 127 General Appearance: lethargic EENT: normal ENT inspection Neck: normal alignment Cardiovascular: normal peripheral pulses, normal rate, regular rhythm Respiratory/Chest: chest wall non-tender, lungs clear, normal breath sounds Abdomen: hypoactive bowel sounds, distended Extremities: normal inspection Edema: no edema noted Arm (L), no edema noted Arm (R), no edema noted Leg (L), no edema noted Leg (R), no edema noted Pedal (L), no edema noted Pedal (R), no edema noted Generalized Neurologic: motor weakness Skin: normal pigmentation, warm/dry Assessment/Plan Problem List: (1) Ascites ICD Codes: R18.8 - Other ascites SNOMED: 612865905 (2) Alcoholic cirrhosis ICD Codes: K70.30 - Alcoholic cirrhosis of liver without ascites SNOMED: 885245330 (3) Renal failure ICD Codes: N19 - Unspecified kidney failure SNOMED: 11253914 (4) Thrombocytopenia ICD Codes: D69.6 - Thrombocytopenia, unspecified SNOMED: 304277603 (5) Abdominal pain ICD Codes: R10.9 - Unspecified abdominal pain SNOMED: 01340135 (6) History of alcohol abuse ICD Codes: F10.11 - Alcohol abuse, in remission SNOMED: 564894404 Status: unchanged Assessment/Plan: abx bp pain control pending pericentesis and dialysis cath cbc bmp Kailash Wyatt DO Aug 10, 2020 08:52
[2020-08-10 09:12] LABS: PHOSPHORUS 4.4 MG/DL (2.5-4.9)
--- NOTE | 2020-08-10 09:20 | General Progress Note ---
Subjective ROS Limited/Unobtainable: No Allergies: Coded Allergies: No Known Allergies (Unverified , 07/08/16) Objective Last 24 Hour Vital Signs Date Time Temp Pulse Resp B/P (MAP) Pulse Ox O2 Delivery O2 Flow Rate FiO2 08/10/20 04:00 112 08/10/20 04:00 98.1 120 16 105/61 (76) 100 08/10/20 04:00 Nasal Cannula 2.0 08/10/20 00:00 97.0 109 16 118/67 (84) 100 08/10/20 00:00 Nasal Cannula 2.0 08/09/20 23:44 106 08/09/20 20:00 Room Air 08/09/20 20:00 117 08/09/20 19:50 96.8 110 16 121/66 (84) 100 08/09/20 16:00 97 08/09/20 16:00 Room Air 08/09/20 15:57 96.3 88 16 108/68 (81) 100 08/09/20 12:00 Room Air 08/09/20 12:00 96.9 88 19 106/56 (73) 100 08/09/20 12:00 97 l Intake and Output 08/09/20 08/10/20 19:00 07:00 Intake Total 120 ml 505 ml Output Total 125 ml 1100 ml Balance -5 ml -595 ml Intake Oral 0 ml 0 ml IV Total 120 ml 505 ml Output Urine Total 125 ml 100 ml Hemodialysis UF 1000 ml Laboratory Tests 08/09/20 09:52: Lactic Acid Level 7.00H 08/10/20 07:40: Ammonia 353H 08/10/20 08:00: White Blood Count 19.9H, Red Blood Count 1.92L, Hemoglobin 7.0L, Hematocrit 19.5L, Mean Corpuscular Volume 102H, Mean Corpuscular Hemoglobin 36.4H, Mean Corpuscular Hemoglobin Concent 35.8, Red Cell Distribution Width 16.6H, Platelet Count 78L, Mean Platelet Volume 9.9, Neutrophils (%) (Auto) , Lymphocytes (%) (Auto) , Monocytes (%) (Auto) , Eosinophils (%) (Auto) , Basophils (%) (Auto) , Neutrophils % (Manual) [Pending], Lymphocytes % (Manual) [Pending], Platelet E stimate [Pending], Platelet Morphology [Pending], Prothrombin Time 24.8H, Prothromb Time International Ratio 2.4H, Activated Partial Thromboplast Time 49H , Sodium Level [Pending], Potassium Level [Pending], Chloride Level [Pending], Carbon Dioxide Level [Pending], Blood Urea Nitrogen [Pending], Creatinine [Pending], Estimat Glomerular Filtration Rate [Pending], Glucose Level [Pending], Uric Acid 5.5, Calcium Level [Pending], Phosphorus Level 4.4, Magnesium Level 2.6H, Total Bilirubin [Pending], Aspartate Amino Transf (AST/SGOT) [Pending], Alanine Aminotransferase (ALT/SGPT) [Pending], Alkaline Phosphatase [Pending], Troponin I 0.027, C-Reactive Protein, Quantitative 8.3H, Pro-B-Type Natriuretic Peptide [Pending], Total Protein [Pending], Albumin [Pending], Globulin [Pending] Height (Feet): 5 Height (Inches): 5.00 Weight (Pounds): 127 General Appearance: lethargic EENT: normal ENT inspection, scleral icterus Neck: supple Cardiovascular: normal rate Respiratory/Chest: decreased breath sounds Abdomen: soft, hypoactive bowel sounds Extremities: non-tender Assessment/Plan Problem List: (1) History of alcohol abuse ICD Codes: F10.11 - Alcohol abuse, in remission SNOMED: 974899458 (2) Abdominal pain ICD Codes: R10.9 - Unspecified abdominal pain SNOMED: 06840868 (3) Thrombocytopenia ICD Codes: D69.6 - Thrombocytopenia, unspecified SNOMED: 133551501 (4) Ascites ICD Codes: R18.8 - Other ascites SNOMED: 962178561 (5) Anemia, macrocytic ICD Codes: D53.9 - Nutritional anemia, unspecified SNOMED: 85551436 (6) Gallbladder sludge ICD Codes: K82.8 - Other specified diseases of gallbladder SNOMED: 85434915, 01988627 (7) Pancreatic lesion ICD Codes: K86.9 - Disease of pancreas, unspecified SNOMED: 6079898 (8) Hiatal hernia ICD Codes: K44.9 - Diaphragmatic hernia without obstruction or gangrene SNOMED: 31886794, 33965413 Status: unchanged Assessment/Plan: paracentesis>>>canceled by IR due to elevated INR albumin iv tumor markers MRI when more stable xifaxan HD placed NGT today repeat labs Nelson Bell MD Aug 10, 2020 09:20
[2020-08-10 09:21] LABS: ALBUMIN 2.7 G/DL (3.4-5.0); ALBUMIN/GLOBULIN RATIO 0.6 (1.0-2.7); BILIRUBIN,DIRECT 11.2 MG/DL (0.0-0.3); BILIRUBIN,TOTAL 17.1 MG/DL (0.2-1.0); CALCIUM 8.6 MG/DL (8.5-10.1); CREATININE 3.2 MG/DL (0.55-1.30); POTASSIUM 4.4 MMOL/L (3.5-5.1)
--- NOTE | 2020-08-10 10:47 | Diagnostic Imaging Report ---
EXAM: XR Abdomen, 2 Views CLINICAL HISTORY: NGT TECHNIQUE: Frontal view of the abdomen/pelvis with upright view of the abdomen. COMPARISON: CT abdomen and pelvis August 08, 2020. FINDINGS/IMPRESSION: Enteric feeding tube terminates in the stomach. Prominent loops of small bowel measuring up to 6.1 cm, consistent with high-grade small bowel obstruction. See CT scan from August 08, 2020. The degree of obstruction has likely increased.
--- NOTE | 2020-08-10 10:47 | NUR ---
NURSE NOTES: Per doctor Delmi, keep pt in isolation until further notice, no additional covid test yet, he will advise.
--- NOTE | 2020-08-10 10:54 | NUR ---
NURSE NOTES: Ok to use [place] tube and ok to give Xifaxan per Doctor Idalia.
[2020-08-10] MEDS: Lactulose 20gm/30ml UDC ORAL SCH ×3 (11:04→18:00)
[2020-08-10] MEDS: Pantoprazole Inj IVP SCH ×2 (11:04→21:17)
--- NOTE | 2020-08-10 12:06 | Nephrology Progress Note ---
Assessment/Plan Problem List: (1) Hepatorenal syndrome (2) ILEANA (acute kidney injury) (3) Alcoholic cirrhosis (4) Ascites (5) Anemia, macrocytic Assessment Acute on chronic renal failure Hyponatremia secondary to third spacing as a result of cirrhosis, ascites Jaundice Anemia, thrombocytopenia Pancreatitis, enterocolitis UTI, sepsis Plan August 10: Patient lethargic. Now has NG tube. Will be given lactulose through NG tube. Discussed with NOAH Murphy. Patient was dialyzed yesterday. Electrolytes much improved. Hemodialysis as needed. Will check lab tomorrow. August 09: Patient seen and examined. Discussed with NOAH Boswell. Patient has worsening renal failure and mental status is declining. Will arrange for insertion of a nontunneled dialysis catheter and attempt to dialyze. Discussed with mother Moni at [phone] who is agreeable to give consent for catheter. Previously: Continue per GI Perez catheter Urine studies 3% saline trial Kidney ultrasound 2D echocardiogram Per orders Subjective ROS Limited/Unobtainable: Yes Objective Objective Last 24 Hour Vital Signs Date Time Temp Pulse Resp B/P (MAP) Pulse Ox O2 Delivery O2 Flow Rate FiO2 08/10/20 08:00 97.5 107 18 106/53 (70) 98 08/10/20 08:00 107 08/10/20 04:00 112 08/10/20 04:00 98.1 120 16 105/61 (76) 100 08/10/20 04:00 Nasal Cannula 2.0 08/10/20 00:00 97.0 109 16 118/67 (84) 100 08/10/20 00:00 Nasal Cannula 2.0 08/09/20 23:44 106 08/09/20 20:00 Room Air 08/09/20 20:00 117 08/09/20 19:50 96.8 110 16 121/66 (84) 100 08/09/20 16:00 97 08/09/20 16:00 Room Air 08/09/20 15:57 96.3 88 16 108/68 (81) 100 Intake and Output 08/09/20 08/10/20 19:00 07:00 Intake Total 120 ml 505 ml Output Total 125 ml 1100 ml Balance -5 ml -595 ml Intake Oral 0 ml 0 ml IV Total 120 ml 505 ml Output Urine Total 125 ml 100 ml Hemodialysis UF 1000 ml Laboratory Tests 08/10/20 07:40: Ammonia 353H 12/12/20 08:00: White Blood Count 19.9H, Red Blood Count 1.92L, Hemoglobin 7.0L, Hematocrit 19.5L, Mean Corpuscular Volume 102H, Mean Corpuscular Hemoglobin 36.4H, Mean Corpuscular Hemoglobin Concent 35.8, Red Cell Distribution Width 16.6H, Platelet Count 78L, Mean Platelet Volume 9.9, Neutrophils (%) (Auto) , Lymphocytes (%) (Auto) , Monocytes (%) (Auto) , Eosinophils (%) (Auto) , Basophils (%) (Auto) , Differential Total Cells Counted 100, Neutrophils % (Manual) 77H, Lymphocytes % (Manual) 9L, Monocytes % (Manual) 4, Eosinophils % (Manual) 0, Basophils % (Manual) 0, Band Neutrophils 10H, Platelet Estimate DecreasedL, Platelet Morphology Normal, Hypochromasia 2+, Anisocytosis 1+, Macrocytosis 1+, Proth rombin Time 24.8H, Prothromb Time International Ratio 2.4H, Activated Partial Thromboplast Time 49H, Sodium Level 139, Potassium Level 4.4, Chloride Level 102, Carbon Dioxide Level 22, Anion Gap 15, Blood Urea Nitrogen 27H, Creatinine 3.2H, Estimat Glomerular Filtration Rate 19.4, Glucose Level 113H, Uric Acid 5.5, Calcium Level 8.6, Phosphorus Level 4.4, Magnesium Level 2.6H, Total Bilirubin 17.1H, Direct Bilirubin 11.2H, Aspartate Amino Transf (AST/SGOT) 187H, Alanine Aminotransferase (ALT/SGPT) 72, Alkaline Phosphatase 164H, Troponin I 0.027, C-Reactive Protein, Quantitative 8.3H, Pro-B-Type Natriuretic Peptide 1173H, Total Protein 7.2, Albumin 2.7L, Globulin 4.5, Albumin/Globulin Ratio 0.6L Height (Feet): 5 Height (Inches): 5.00 Weight (Pounds): 127 General Appearance: no apparent distress, lethargic, confused EENT: other - Now has NG tube in Cardiovascular: tachycardia Respiratory/Chest: decreased breath sounds Abdomen: distended Vicente Gonzales MD Aug 10, 2020 12:06
--- NOTE | 2020-08-10 12:39 | NUR ---
NURSE NOTES: reported latest labs to doctor Shilpi. Waiting for new orders
[2020-08-10] MEDS: Dextrose 10% 1,000 ML IV SCH ×2 (13:00→23:26)
--- NOTE | 2020-08-10 13:21 | NUR ---
NURSE NOTES: L/M for doct. Chacha reported WCB count from today. Waiting for orders.
--- NOTE | 2020-08-10 14:50 | NUR ---
NURSE NOTES: Patient transferred from SDU to Telemetry unit via hospital bed. The patient is currently on contact and droplet isolation per MD order. Upon assessment patient was stable with minor labored breathing and was on 2L/min nasal cannula. The Patient was on the nuclear monitoring technician and positioned in left high fowlers for optimal oxygenation. The patient had an IJ in place for hemodialysis and two patent and intact IV sites and was currently receiving 30ml/hr of D5W. The patient had a urinary catheter in place draining dark roshni urine. Patients belonging were verified and acknowledged. The bed was placed in lowest position, bed locked, bed alarm set to zone 1, yellow non skid socks on, side rails x3 and call light within reach.
--- NOTE | 2020-08-10 14:50 | NUR ---
NURSE NOTES: pt transferred in stable condition. Pt on desk monitor no signs cardiac or respiratory distress. All belonging were transported with pt. including cell phone purse and bags. Pt needs to be kept upright position leaning on the left to help her with breathing. Pt has 2 working Iv's and IJ for HD. Pt has [place] tube we just gave lactulose.
--- NOTE | 2020-08-10 14:55 | NUR ---
NURSE NOTES: Patient's breathing appears labored. O2 saturation 100%, respiratory rate 25. mall manager made aware, RN model making supervisor made aware. STAT ABG done on patient. Oral suction provided, NC 4 L.
--- NOTE | 2020-08-10 15:48 | Cardiac Electrophysiology PN ---
Assessment/Plan Assessment/Plan 1. Tachycardia due to sepsis, renal failure, hyponatremia, and cirrhosis of the liver. There is no evidence of atrial fibrillation, just sinus tachycardia. Echocardiogram EF 70% 2. Cirrhosis of the liver, status post multiple paracenteses. The patient will have further evaluation by Dr. Bell and paracentesis is still pending. 3. History of esophageal varices. 4. Thrombocytopenia due to alcohol. 5. History of heavy alcohol use. 6. Pancreatic lesion. 7. Acute renal failure. S/P hemodialysis per Dr. Gonzales. SARAI RN Subjective Subjective Confused in NAD. Transferred to tele Objective Last 24 Hour Vital Signs Date Time Temp Pulse Resp B/P (MAP) Pulse Ox O2 Delivery O2 Flow Rate FiO2 08/10/20 12:00 97.0 107 20 101/50 (67) 98 08/10/20 09:00 Nasal Cannula 2.0 08/10/20 08:00 97.5 107 18 106/53 (70) 98 08/10/20 08:00 107 08/10/20 04:00 112 08/10/20 04:00 98.1 120 16 105/61 (76) 100 08/10/20 04:00 Nasal Cannula 2.0 08/10/20 00:00 97.0 109 16 118/67 (84) 100 08/10/20 00:00 Nasal Cannula 2.0 08/09/20 23:44 106 08/09/20 20:00 Room Air 08/09/20 20:00 117 08/09/20 19:50 96.8 110 16 121/66 (84) 100 08/09/20 16:00 97 08/09/20 16:00 Room Air 08/09/20 15:57 96.3 88 16 108/68 (81) 100 Intake and Output 08/09/20 08/10/20 19:00 07:00 Intake Total 120 ml 505 ml Output Total 125 ml 1100 ml Balance -5 ml -595 ml Intake Oral 0 ml 0 ml IV Total 120 ml 505 ml Output Urine Total 125 ml 100 ml Hemodialysis UF 1000 ml Laboratory Tests Test 08/10/20 07:40 08/10/20 08:00 Ammonia 353 umol/L (11-32) H White Blood Count 19.9 K/UL (4.8-10.8) H Red Blood Count 1.92 M/UL (4.20-5.40) L Hemoglobin 7.0 G/DL (12.0-16.0) L Hematocrit 19.5 % (37.0-47.0) L Mean Corpuscular Volume 102 FL (80-99) H Mean Corpuscular Hemoglobin 36.4 PG (27.0-31.0) H Mean Corpuscular Hemoglobin Concent 35.8 G/DL (32.0-36.0) Red Cell Distribution Width 16.6 % (11.6-14.8) H Platelet Count 78 K/UL (150-450) L Mean Platelet Volume 9.9 FL (6.5-10.1) Neutrophils (%) (Auto) % (45.0-75.0) Lymphocytes (%) (Auto) % (20.0-45.0) Monocytes (%) (Auto) % (1.0-10.0) Eosinophils (%) (Auto) % (0.0-3.0) Basophils (%) (Auto) % (0.0-2.0) Differential Total Cells Counted 100 Neutrophils % (Manual) 77 % (45-75) H Lymphocytes % (Manual) 9 % (20-45) L Monocytes % (Manual) 4 % (1-10) Eosinophils % (Manual) 0 % (0-3) Basophils % (Manual) 0 % (0-2) Band Neutrophils 10 % (0-8) H Platelet Estimate Decreased L Platelet Morphology Normal Hypochromasia 2+ Anisocytosis 1+ Macrocytosis 1+ Prothrombin Time 24.8 SEC (9.30-11.50) H Prothromb Time International Ratio 2.4 (0.9-1.1) H Activated Partial Thromboplast Time 49 SEC (23-33) H Sodium Level 139 MMOL/L (136-145) Potassium Level 4.4 MMOL/L (3.5-5.1) Chloride Level 102 MMOL/L (98-107) Carbon Dioxide Level 22 MMOL/L (21-32) Anion Gap 15 mmol/L (5-15) Blood Urea Nitrogen 27 mg/dL (7-18) H Creatinine 3.2 MG/DL (0.55-1.30) H Estimat Glomerular Filtration Rate 19.4 mL/min (>60) Glucose Level 113 MG/DL (74-106) H Uric Acid 5.5 MG/DL (2.6-7.2) Calcium Level 8.6 MG/DL (8.5-10.1) Phosphorus Level 4.4 MG/DL (2.5-4.9) Magnesium Level 2.6 MG/DL (1.8-2.4) H Total Bilirubin 17.1 MG/DL (0.2-1.0) H Direct Bilirubin 11.2 MG/DL (0.0-0.3) H Aspartate Amino Transf (AST/SGOT) 187 U/L (15-37) H Alanine Aminotransferase (ALT/SGPT) 72 U/L (12-78) Alkaline Phosphatase 164 U/L (46-116) H Troponin I 0.027 ng/mL (0.000-0.056) C-Reactive Protein, Quantitative 8.3 mg/dL (0.00-0.90) H Pro-B-Type Natriuretic Peptide 1173 pg/mL (0-125) H Total Protein 7.2 G/DL (6.4-8.2) Albumin 2.7 G/DL (3.4-5.0) L Globulin 4.5 g/dL Albumin/Globulin Ratio 0.6 (1.0-2.7) L Microbiology Date/Time Source Procedure Growth Status 08/08/20 14:10 Nasopharynx Coronavirus COVID-19 PCR ([facility]) - Final Complete 08/08/20 02:00 Urine,Clean Catch Urine Culture - Final NO GROWTH AFTER 48 HOURS Complete 08/08/20 02:00 Blood Blood Culture - Preliminary NO GROWTH AFTER 48 HOURS Resulted 08/08/20 01:45 Blood Blood Culture - Preliminary NO GROWTH AFTER 48 HOURS Resulted Objective HEAD AND NECK: Showed no JVD. LUNGS: Coarse rhonchi. CARDIOVASCULAR: Regular S1 and S2 with no gallop. ABDOMEN: Soft with ascites. EXTREMITIES: 2+ pitting edema. Tacos Cooley MD Aug 10, 2020 15:48
--- NOTE | 2020-08-10 16:12 | NUR ---
PT Note Attempted to see patient for PT eval/t. Was advised by RN to hold off on PT due to patient being medically unstable. Will DC physical therapy for now; resume when new orders are received.
--- NOTE | 2020-08-10 17:49 | Surgery Progress Note ---
Surgery Progress Note Subjective Additional Comments wbc elevated hold para ng place Objective Last 24 Hour Vital Signs Date Time Temp Pulse Resp B/P (MAP) Pulse Ox O2 Delivery O2 Flow Rate FiO2 08/10/20 16:00 100.2 108 21 96/40 (58) 98 08/10/20 12:00 105 08/10/20 12:00 97.0 107 20 101/50 (67) 98 08/10/20 12:00 Nasal Cannula 2.0 08/10/20 09:00 Nasal Cannula 2.0 08/10/20 08:00 97.5 107 18 106/53 (70) 98 08/10/20 08:00 107 08/10/20 04:00 112 08/10/20 04:00 98.1 120 16 105/61 (76) 100 08/10/20 04:00 Nasal Cannula 2.0 08/10/20 00:00 97.0 109 16 118/67 (84) 100 08/10/20 00:00 Nasal Cannula 2.0 08/09/20 23:44 106 08/09/20 20:00 Room Air 08/09/20 20:00 117 08/09/20 19:50 96.8 110 16 121/66 (84) 100 I&O Intake and Output 08/09/20 08/10/20 19:00 07:00 Intake Total 120 ml 505 ml Output Total 125 ml 1100 ml Balance -5 ml -595 ml Intake Oral 0 ml 0 ml IV Total 120 ml 505 ml Output Urine Total 125 ml 100 ml Hemodialysis UF 1000 ml Cardiovascular: RSR Respiratory: decreased breath sounds Abdomen: distended, non-tender, decreased bowel sounds Extremities: edema, no tenderness, no cyanosis Laboratory Tests Test 08/10/20 07:40 08/10/20 08:00 08/10/20 16:55 Ammonia 353 umol/L (11-32) H White Blood Count 19.9 K/UL (4.8-10.8) H Red Blood Count 1.92 M/UL (4.20-5.40) L Hemoglobin 7.0 G/DL (12.0-16.0) L Hematocrit 19.5 % (37.0-47.0) L Mean Corpuscular Volume 102 FL (80-99) H Mean Corpuscular Hemoglobin 36.4 PG (27.0-31.0) H Mean Corpuscular Hemoglobin Concent 35.8 G/DL (32.0-36.0) Red Cell Distribution Width 16.6 % (11.6-14.8) H Platelet Count 78 K/UL (150-450) L Mean Platelet Volume 9.9 FL (6.5-10.1) Neutrophils (%) (Auto) % (45.0-75.0) Lymphocytes (%) (Auto) % (20.0-45.0) Monocytes (%) (Auto) % (1.0-10.0) Eosinophils (%) (Auto) % (0.0-3.0) Basophils (%) (Auto) % (0.0-2.0) Differential Total Cells Counted 100 Neutrophils % (Manual) 77 % (45-75) H Lymphocytes % (Manual) 9 % (20-45) L Monocytes % (Manual) 4 % (1-10) Eosinophils % (Manual) 0 % (0-3) Basophils % (Manual) 0 % (0-2) Band Neutrophils 10 % (0-8) H Platelet Estimate Decreased L Platelet Morphology Normal Hypochromasia 2+ Anisocytosis 1+ Macrocytosis 1+ Prothrombin Time 24.8 SEC (9.30-11.50) H Prothromb Time International Ratio 2.4 (0.9-1.1) H Activated Partial Thromboplast Time 49 SEC (23-33) H Sodium Level 139 MMOL/L (136-145) Potassium Level 4.4 MMOL/L (3.5-5.1) Chloride Level 102 MMOL/L (98-107) Carbon Dioxide Level 22 MMOL/L (21-32) Anion Gap 15 mmol/L (5-15) Blood Urea Nitrogen 27 mg/dL (7-18) H Creatinine 3.2 MG/DL (0.55-1.30) H Estimat Glomerular Filtration Rate 19.4 mL/min (>60) Glucose Level 113 MG/DL (74-106) H Uric Acid 5.5 MG/DL (2.6-7.2) Calcium Level 8.6 MG/DL (8.5-10.1) Phosphorus Level 4.4 MG/DL (2.5-4.9) Magnesium Level 2.6 MG/DL (1.8-2.4) H Total Bilirubin 17.1 MG/DL (0.2-1.0) H Direct Bilirubin 11.2 MG/DL (0.0-0.3) H Aspartate Amino Transf (AST/SGOT) 187 U/L (15-37) H Alanine Aminotransferase (ALT/SGPT) 72 U/L (12-78) Alkaline Phosphatase 164 U/L (46-116) H Troponin I 0.027 ng/mL (0.000-0.056) C-Reactive Protein, Quantitative 8.3 mg/dL (0.00-0.90) H Pro-B-Type Natriuretic Peptide 1173 pg/mL (0-125) H Total Protein 7.2 G/DL (6.4-8.2) Albumin 2.7 G/DL (3.4-5.0) L Globulin 4.5 g/dL Albumin/Globulin Ratio 0.6 (1.0-2.7) L Arterial Blood pH 7.502 (7.350-7.450) Arterial Blood Partial Pressure CO2 19.5 mmHg (35.0-45.0) *L Arterial Blood Partial Pressure O2 60.5 mmHg (75.0-100.0) L Arterial Blood HCO3 14.9 mmol/L (22.0-26.0) *L Arterial Blood Oxygen Saturation 90.9 % (95-100) L Arterial Blood Base Excess -7.1 (-2-2) L Curtis Test Positive Plan Problems: (1) Enterocolitis (2) Hiatal hernia (3) Pancreatic lesion (4) Gallbladder sludge (5) Lactic acidosis (6) Anemia, macrocytic (7) Ascites (8) Alcoholic cirrhosis (9) Pancreatitis (10) Renal failure (11) Thrombocytopenia (12) Metabolic acidosis (13) Abdominal pain Assessment & Plan: 40F alcoholic cirrhosis liver insufficiency ascites requiring para now with abd pain. recent admission to outside facility. ct noted. exam not acute abdomen. enteritis. panc cyst. no acute surgical intervention. okay for diet. fluids. para prn. will follow with exam and recs. thank you HD cath in hemostasis now begin HD trend labs abd exam stable ?ffp para when stable ng placed ABDOMEN: Liver: Hepatomegaly. Gallbladder and bile ducts: Cholelithiasis/sludge. Mildly distended gallbladder, nonspecific. No ductal dilation. Pancreas: Absent IV contrast limit evaluation and assessment of size of the pancreatic lesion. There is heterogeneous mass in the head/uncinate process of the pancreas measuring up to 4.7 cm. This appears increased in size. Prominent tail of the pancreas is again noted. Spleen: Unremarkable. No splenomegaly. Adrenals: Unremarkable. No mass. Kidneys and ureters: Unremarkable. No obstructing stones. No hydronephrosis. Stomach and bowel: Thickening of the colonic wall, nonspecific and may partly reflect reactive change. Recommend clinical correlation and follow-up to exclude developing colitis. This is most pronounced in the ascending colon. Multiple fluid-filled dilated small bowel loops with scattered air-fluid levels which may reflect ileus/enteritis. Recommend clinical correlation and follow-up to exclude partial developing loose obstruction in the distal small bowel. Absent IV and oral contrast as well as diffuse ascites and soft tissue stranding limit evaluation. PELVIS: Appendix: No findings to suggest acute appendicitis. Bladder: Unremarkable. No stones. Reproductive: Unremarkable as visualized. ABDOMEN and PELVIS: Intraperitoneal space: Diffuse soft tissue stranding in the intra- abdominal fat and mesentery, nonspecific. No free air. Moderate to large free fluid in the abdomen. Bones/joints: No acute fracture. No dislocation. Soft tissues: Mild anasarca. Vasculature: Unremarkable. No abdominal aortic aneurysm. Lymph nodes: Prominent inguinal lymph nodes, probably reactive. IMPRESSION: 1. Absent IV and oral contrast limit evaluation. Mild to moderate ascites 2. Sludge/gallstones and distended gallbladder, nonspecific. 3. Follow-up HIDA scan could be obtained to exclude developing acute cholecystitis as indicated. 4. Pancreatic lesion/abnormality, which appears increased in size. Although focal pancreatitis/cystic/necrotic change can give this appearance, malignancy is difficult to exclude. 5. No free air. 6. Findings which may reflect diffuse enterocolitis. Recommend clinical correlation and follow-up to exclude partial distal small bowel obstruction. 7. Hepatomegaly. (14) History of alcohol abuse (15) Scleral icterus (16) Encounter for removal of sutures (17) Encounter for wound re-check Joao Jarvis Aug 10, 2020 17:49
--- NOTE | 2020-08-10 19:02 | NUR ---
NURSE NOTES: Dr Friedman made aware of fluid backing into NGT. HGB 7.0. New order for 1 unit PRBC obtained.
[2020-08-10] MEDS ORDERED: DOPamine 400mg/250ml 250 ML IV ONE (19:30)
--- NOTE | 2020-08-10 19:30 | NUR ---
NURSE NOTES: Called and left for MD Mi at this time. Patient noted on distress, sinus elbert HR 55, BP 60/24 Sat 88%. On NRB 15L. Resp 16. awaiting call back.
--- NOTE | 2020-08-10 19:30 | NUR ---
NURSE NOTES: Pt transferred from Tele. Given report from NOAH Johnson. Pt is resting on the bed and lethargic and able to open the eyes pain stimuli. both Pupil is dilatated 5mm. Noted slight gag reflex. Noted abdomen distended with ascites. Her conjunctiva color is yellow and noted Jaundice on her body. Applied monitor worker. on monitor worker with SB and HR: 58's. On O2 4L via nasal cannula ans SaO2 88% noted. noted SOB with tachypnea. Pt has NGT and noted slight brownish drainage. On NPO. Pt has Rt. IJ Johan cath and dressing is clean and dry. Pt has 2 Iv line and patent and no sing of infiltration noted. on running with D10W @ 30cc/hr. No fever noted. checked belongings. Noted BP 45/24mmHg. Placed flat position. Left message to Dr. liao and awaiting call back. Placed fall precaution. On proper isolation for PUI. will continue to care plan.
--- NOTE | 2020-08-10 19:38 | NUR ---
NURSE NOTES: Called and spoke with MD Cooley at this time Informed him patient current Vital signs are HR 56, BP 45/24 patient noted to be in distress. MD Ordered to start Dopamine to keep SPB >90.
--- NOTE | 2020-08-10 19:39 | NUR ---
NURSE HAND-OFF REPORT: Important Events on Shift:[transfer ICU, PRBC 1 unit order, stat ABG] Patient Status: [FULL CODE] Diet: [NPO] Pending Orders: [] Pending Results/Labs:[] Pending MD notification:[] Latest Vital Signs: Temperature 100.2 , Pulse 109 , B/P 96 /40 , Respiratory Rate 21 , O2 SAT 98 , Nasal Cannula, O2 Flow Rate 2.0 . Vital Sign Comment: [] EKG Rhythm: Sinus Tachycardia Rhythm change?: N MD Notified?: Y -Dr Lenora TELLO Response: Latest Hurt Fall Score: 45 Fall Risk: High Risk Safety Measures: Call light Within Reach, Bed Alarm Zone 2, Side Rails Side Rails x2, Bed position Low and Locked. Fall Precautions: Patient Fall Education Report given to [Jon ZAMORA].
[2020-08-10] MEDS: DOPamine 400mg/250ml 250 ML IV SCH (19:40)
--- NOTE | 2020-08-10 19:40 | NUR ---
NURSE NOTES: Called MD Jarvis at this time, informed him about patient change in condition at this time. Transferred him to ER MD for intubation.
[2020-08-10] MEDS ORDERED: LORazepam Inj 2mg/ml 1ml ONE (19:46)
--- NOTE | 2020-08-10 19:47 | NUR ---
NURSE NOTES: MD Jarvis called back at this time. Informed me patient will be intubated by ER MD at this time. Central line placement will be delayed but okay to use HD QC for Pressors. Also informed him patient is currently having a Seizure at this time. 2 Mg ativan ordered , Orders read back and confirmed by .
--- NOTE | 2020-08-10 19:50 | NUR ---
NURSE NOTES: ER doctor intubated Pt. ETT is 7.5cm and fixed 22cm on the lip line. Vent setting is AcL 16, T: 500, P: 5, and FiO2 100%. given suction and oral care. Will continue to monitor any change of condition.
[2020-08-10] MEDS ORDERED: LORazepam Inj 2mg/ml 1ml IV SCH (19:56)
--- NOTE | 2020-08-10 20:06 | Emergency Room Report ---
History of Present Illness General Chief Complaint: Abdominal Pain Source: Patient, Medical Record, PMD Present Illness Allergies: Coded Allergies: No Known Allergies (Unverified , 07/08/16) COVID-19 Screening Contact w/high risk pt: No Experienced COVID-19 symptoms?: No COVID-19 Testing performed BLENDING MACHINE OPERATOR: No COVID-19 Screening: Negative COVID-19 Patient History Now: No Nursing Documentation-PMH Past Medical History: No History, Except For Hx Cardiac Problems: Yes - liver cirrhosis, ascites, gastritis Hx Gastrointestinal Problems: Yes - gastritis Physical Exam Vital Signs Date Time Temp Pulse Resp B/P (MAP) Pulse Ox O2 Delivery O2 Flow Rate FiO2 08/08/20 01:39 95.7 111 18 119/64 (82) 100 Room Air 08/10/20 00:00 2.0 Procedures Intubation Intubation : Consent: Emergent Time of Intubation: 19:57 Intubation Method: orotracheal Tube Size (cm): 7.0 Medications: Etomidate, Rocuronium Breath Sounds after Intubation: equal Intubation Complications: no complications Post Intubation Xray: Yes Attempts: One Patient Tolerated: Well Complications: None Progress ET tube secured to 22 cm at the teeth, equal breath sounds bilaterally direct visualization of vocal cords after direct laryngoscopy x1 Lumbar Puncture Consent: Emergent Medical Decision Making Diagnostic Impression: Primary Impression: Abdominal pain Additional Impressions: Pancreatic lesion Gallbladder sludge Anemia, macrocytic Ascites Alcoholic cirrhosis Pancreatitis Renal failure Thrombocytopenia History of alcohol abuse Metabolic acidosis Scleral icterus Enterocolitis Hiatal hernia Lactic acidosis Last Vital Signs Date Time Temp Pulse Resp B/P (MAP) Pulse Ox O2 Delivery O2 Flow Rate FiO2 08/10/20 19:40 45/24 08/10/20 16:00 100.2 108 21 98 08/10/20 12:00 Nasal Cannula 2.0 Disposition: ADMITTED INPATIENT Condition: Stable Referrals: NON PHYSICIAN (PCP) Danny Mar MD Aug 10, 2020 20:05
--- NOTE | 2020-08-10 20:10 | NUR ---
NURSE NOTES: Called left message for MD Mi at this time. NO answer
--- NOTE | 2020-08-10 20:10 | NUR ---
RESPIRATORY NOTE: Received pt on AC VC 16, 500VT, 100%, PEEP +5. Pt is intubated w/ ETT 7.5 @ 22cm lipline, secured by anchorfast. Pt obtunded/flat effect. B/S angie. clear, sxn scant amounts of thick, hill-brown secretions. Vent plugged into red outlet, ambubag at bedside. Pt in no apparent distress at this time. Will continue to monitor pt.
--- NOTE | 2020-08-10 20:14 | NUR ---
NURSE NOTES: Ativan 2mg scanned late. patient intubations started after ativan was given due to deteriorating condition. Scanned late
[2020-08-10] MEDS ORDERED: Norepinephrine 4mg/NS Premix 250 ML IV SCH (20:15)
--- NOTE | 2020-08-10 20:15 | NUR ---
NURSE NOTES: Called Nursing Property Officer Rubi at this time. MD Mi as not called back and no Pulmo or limousine driver on the case at this time. She will Call MD Mendoza.
--- NOTE | 2020-08-10 20:22 | NUR ---
NURSE NOTES: Attempted to Call Mother at this time no answer. Will attempt to call again
--- NOTE | 2020-08-10 20:30 | Consultation ---
DATE OF CONSULTATION: 08/10/2020 PULMONARY CONSULTATION CONSULTING PHYSICIAN: Roosevelt Mendoza MD HISTORY OF PRESENT ILLNESS: This is a 40-year-old female with alcoholic liver cirrhosis and portal hypertension. She was brought to the hospital with abdominal pain. She was admitted to the hospital on 08/08/2020. Patient has been seen in the hospital by General Surgery, Nephrology, and ID specialist as well as Cardiology and Gastroenterology. Patient has also undergone a dialysis catheter placement per Nephrology consultation. Patient unable to provide any history. Apparently, she was noted to have increased pedal edema. She has also been known to have paracenteses in the past. Her workup was notable for a creatinine of 3.6. Lactic acid was 7. Her imaging studies showed evidence of atelectasis. Patient was found to have leukocytosis and started on antibiotics as well. REVIEW OF SYSTEMS: Not reliable. HOME MEDICATIONS: Include Aldactone, omeprazole, Keflex, folic acid. PHYSICAL EXAMINATION: GENERAL: Reveals a 40-year-old female. CHEST: Decreased breath sounds bilaterally. ABDOMEN: Soft, distended. EXTREMITIES: There is 1+ edema. VITAL SIGNS: At this time show blood pressure of 110/50, heart rate is 105, respirations 20, O2 saturation 98% on 2L oxygen. IMAGING STUDIES: Discussed above. LABORATORY DATA: As discussed above notable for elevated white count and creatinine. IMPRESSION: 1. Acute renal failure. 2. Leukocytosis. 3. Sepsis. 4. Hepatic encephalopathy. DISCUSSION: Patient is doing poorly. A dialysis catheter has been placed and dialysis has been requested. She would benefit from rate control and empiric fluids. Agree with broad spectrum antibiotics. Paracentesis to be performed. 3% saline trial per Dr. Gonzales. Current respiratory status is stable. We will follow carefully. Prognosis is grave given underlying medical conditions. She will benefit transfusion however currently will avoid. She has thrombocytopenia, which is likely secondary to chronic condition. I also note that she has a bilirubin of 17, therefore raising the concern of acute hepatitis. Consideration will be given to steroids. We will follow carefully. Roosevelt Mendoza M.D. DR: ELIU/ERICK JOB#: [id number] CC:
--- NOTE | 2020-08-10 20:45 | NUR ---
NURSE NOTES: Get call back from Dr. Mi. Given new order with consult to Dr. العلي. Updated Pt's condition at this time. MD aware Pt has episode of seizure. Will continue to monitor any change of condition.
--- NOTE | 2020-08-10 20:50 | NUR ---
NURSE NOTES: Called Dr. Abbott and updated Pt's condition and notify to ABG result. Her want to continue to setting with Vent and Verify with Dr. lockhart regarding sodium bicarbonate drip.
--- NOTE | 2020-08-10 20:52 | NUR ---
NURSE NOTES: left message to Dr. Gonzales and awaiting call back.
--- NOTE | 2020-08-10 20:52 | Diagnostic Imaging Report ---
EXAM: XR Chest, 1 View CLINICAL HISTORY: TUBE PLCMT TECHNIQUE: Frontal view of the chest. COMPARISON: 08/08/2020 FINDINGS: Lungs: Low lung volumes with bronchovascular crowding. Evolving ill- defined bilateral patchy left mid lung and right base opacities could represent multifocal pneumonia. Retrocardiac atelectasis without or with consolidation. Pleural space: Unremarkable. No pneumothorax. Heart: Unremarkable. No cardiomegaly. Mediastinum: Unremarkable. Bones/joints: No acute abnormality Tubes, lines and devices: ETT 4.3 cm above yolanda. Enteric tube with tip and proximal sideport below the gastroesophageal junction. Right IJ approach dual-lumen catheter with tip at the superior cavoatrial junction. IMPRESSION: 1. ETT 4.3 cm above yolanda. 2. Enteric tube with tip and proximal sideport below the gastroesophageal junction. 3. Right IJ approach dual-lumen catheter with tip at the superior cavoatrial junction. 4. Low lung volumes with bronchovascular crowding. 5. Evolving ill-defined bilateral patchy left mid lung and right base opacities could represent multifocal pneumonia. 6. Retrocardiac atelectasis without or with consolidation.
--- NOTE | 2020-08-10 21:01 | NUR ---
NURSE NOTES: Mother Moni Summers called at this time, informed her of daughters change in condition. State she would like to see her daughter. She will be coming to see her daughter later on sonali.
--- NOTE | 2020-08-10 21:51 | NUR ---
NURSE NOTES: Called [facility] at this time and spoke with Seymour. Informed her MD Gonzales wants Stat HD at this time. Tech will call back.
[2020-08-10] MEDS ORDERED: Sodium Bicarbonate 50ml Carp IV SCH (21:56)
--- NOTE | 2020-08-10 22:05 | NUR ---
NURSE NOTES: Family; her mother and sisters visited see the patient. updated Pt's condition. Her Sister Patti want to bring her belongings back home. Her belongings send to home by family.
[2020-08-10] MEDS ORDERED: LORazepam Inj 2mg/ml 1ml IV PRN (22:22)
[2020-08-10] MEDS ORDERED: Dyna-Hex 2% Top Sol 2oz TOPIC ONE (22:45)
--- NOTE | 2020-08-10 23:40 | NUR ---
NURSE NOTES: Started PRBC 1 unit blood transfusion. Checked V/S BP: 95/58mmHg, HR: 118's, BT: 98. 9F. SaO2 97% with current Vent setting. checked Pt's name, MR number, unit number. blood type, and dated with charge nurse. will continue to monitor any change of condition.
[2020-08-11] VITALS (55 sets, daily range): BP systolic 31–142; BP diastolic 18–94
--- NOTE | 2020-08-11 00:43 | NUR ---
NURSE NOTES: Noted bright red color drainage from NGT. On running with blood transfusion but BP is drop. Paged and Left message to Dr. Bell and awaiting call back.
[2020-08-11] MEDS: Phenylephrine 50 MG in D5W 245 ML IV SCH ×4 (00:46→11:20)
--- NOTE | 2020-08-11 01:10 | NUR ---
NURSE NOTES: Left message to Dr. Bell and awaiting call back.
--- NOTE | 2020-08-11 01:30 | NUR ---
NURSE NOTES: Left message Dr. Mi and awaiting call back.
--- NOTE | 2020-08-11 01:40 | NUR ---
NURSE NOTES: Pt is BP is still low all pressor is maximum dose. On running with PRBC 1unint blood transfusion. Still noted Bright red color drainage from NGT. HT: 120's with ST and Devi 96% with Current Vent setting. Will continue to monitor any change of condition.
[2020-08-11] MEDS: cefTRIAXone 1 GM in D5W 55 ML IVPB SCH (02:11)
[2020-08-11] MEDS ORDERED: Acetaminophen 650 MG SUPP RECTAL PRN ×2 (02:45)
--- NOTE | 2020-08-11 02:50 | NUR ---
NURSE NOTES: Pt is resting on the bed lethargic. Still noted bright red color drainage from NGT and Noted Drop the BP: 77/37mmHg and HR 120's. SaO2 92% with current Vent setting. All pressor is maximum dose. Called Dr. العلي and new order received with 2 more PRBC blood transfusion. Carried out. Will continue to monitor any change of condition.
[2020-08-11] MEDS: DOPamine 400mg/250ml 250 ML IV SCH ×3 (03:35→13:22)
--- NOTE | 2020-08-11 04:30 | NUR ---
NURSE NOTES: Noted bleeding from mouth, nose, rectum and NGT. Bleeding output is more than 1000cc. But Pt's BT is 102F now. Left message to Dr. Mi and Arabella and awaiting call back. BP is 112/94mmG and HT: 100's with ST and SaO2 92% with current Vent setting.
--- NOTE | 2020-08-11 05:15 | NUR ---
NURSE NOTES: Started 2nd PRBC 1 unit blood transfusion. Checked V/S BP: 4023mmHg, HR: 73's, BT: 99.8F. SaO2 97% with current Vent setting. checked Pt's name, MR number, unit number. blood type, and dated with charge nurse. will continue to monitor any change of condition.
--- NOTE | 2020-08-11 06:00 | NUR ---
NURSE NOTES: Still noted bleeding and noted output via NGT 1600cc total during shift production supervisor. Still BP is low. Left message to Dr. liao and awaiting call back.
--- NOTE | 2020-08-11 06:00 | NUR ---
NURSE NOTES: Patients mother called at this time. Informed her condition has become more critical than before. In regards to code status patient is the remain full code at this time. She stated " she wants everything done"
--- NOTE | 2020-08-11 06:37 | NUR ---
NURSE NOTES: Pt is BP is still low. on running with 2 pressor with maximum dose. Leftt message to dr. Cooley and awaiting call back.
--- NOTE | 2020-08-11 07:19 | NUR ---
NURSE NOTES: Get call back from Dr. Bell and new order received with Nehemias humphries Carried out.
--- NOTE | 2020-08-11 07:40 | NUR ---
NURSE HAND-OFF REPORT: Latest Vital Signs: Temperature 99.7 , Pulse 71, B/P 69 /49 , Respiratory Rate 16 , O2 SAT 91 , Mechanical Ventilator, O2 Flow Rate . Vital Sign Comment: EKG Rhythm: Sinus Rhythm Rhythm change?: N Notified?: Gilberto Cooley MD Response: Latest Hurt Fall Score: 45 Fall Risk: High Risk Safety Measures: Call light Within Reach, Bed Alarm Zone 2, Side Rails Side Rails x2, Bed position Low and Locked. Fall Precautions: Yellow Socks Yellow Gown Door Sign Patient Fall Education Report given to NOAH Sanchez. Pt is resting on the bed and lethargic and obtunded. Still noted bleeding from NGT, mouth and nose. On running with Levophed drip @ 30mcg/min. Dopamine @ 20mcg/kg/min, phenylephrine 2 240mcg/min and D10W @ 30cc/hr. 2nd blood transfusion finished.
--- NOTE | 2020-08-11 07:41 | NUR ---
NURSE NOTES: Report received from NOAH Webb. Patient is comatose in bed. No response to pain. Eyes are swollen and jaundiced. Afebrile. 98.8 axillary. SR on communications operator. Orally intubated. ETT 7.5/22cm at lip line. AC 16, TV 500, P 5, FiO2 100%. O2 sat 95-97%. Right NGT in place draining coffee gound emesis to gravity. 1600cc coffee ground emesis from cage shift manager. MS aware. Abdomen severely distended and firm. Perez in place. No urine output. Patient is due STAT HD today. [facility] is aware. Peripheral IV to BERENICE G18, right AC G 20 and right FA G20 patent and asymptomatic. Right IJ Johan with pigtail for HD noted. Patient is on Dopamine at 20mcg/kg/min, Norsynephrine at 240mcg/min, Levo at 30mcg/min, and D10W at 30cc/hr. Pitting edema +1 on upper and left lower extremity and pitting +2 on right lower extremity noted. Bed in lowest position. Side rails up x3. Will resume plan of care.
--- NOTE | 2020-08-11 07:45 | NUR ---
NURSE NOTES: Gat call back from Dr. Cooley and new order received with epineberry humphries Carried out.
[2020-08-11] MEDS ORDERED: Octreotide Acetate 500 MCG in Sodium Chloride 499 ML IV SCH (08:00)
--- NOTE | 2020-08-11 08:00 | NUR ---
NURSE NOTES: Started the 3rd unit of pRBC. Cosigned with NOAH Jeffries. Pre transfusion temp 98.8, HR 82, BP 70/45. Will continue to monitor.
--- NOTE | 2020-08-11 08:16 | NUR ---
CASE MANAGEMENT:REVIEW 08/10/20 SI: CHANGE IN CONDITION HR~56 BP~45/24 SAT~88% WBC+19.9 H/H-7.0/19.5 CR+3.2 TBILI+17.1 DBILI+11.2 PH-6.943 PCO2+61.6 PO2-35.9 HCO3-13.0 O2 SAT-27.5 IS: PLACED ON NON REBREATHER LATER INTUBATED AND PLACED ON VENT TRANSFUSED PRBC'S 3 UNITS PRBC'S DOPAMINE GTT : TRANSFERRED TO ICU 08/11/20 SI: ALCOHOLIC CIRRHOSIS.ACUTE RENAL FAILURE SEPSIS. HEPATIC ENCEPHALOPATHY. ASCITES RESPIRATORY FAILURE ~ INTUBATED 99.0 120 23 88/66 96% ON VENT SUPPORT W/75% FIO2 IS: LEVOPHED GTT OCTREOTIDE GTT PHENYLEPHRINE GTT DOPAMINE GTT IVF@30/HR IV ROCEPHIN Q24 IV PROTONIX Q12 LACTULOSE NG TID : ICU STATUS DCP; FROM HOME PLAN: DIALYSIS CATH PLACED AND DIALYSIS STARTED
[2020-08-11] MEDS: Lactulose 20gm/30ml UDC ORAL SCH ×2 (08:53→13:00)
[2020-08-11] MEDS ORDERED: D5W IV SCH (09:00)
[2020-08-11] MEDS ORDERED: NOREPINEPHRINE IV SCH (09:00)
[2020-08-11] MEDS: EPINEPHrine 1mg/1ml Amp 1 MG in D5W 249 ML IV SCH ×2 (09:00→12:00)
--- NOTE | 2020-08-11 09:18 | NUR ---
NURSE NOTES: Will hold oral medication since patient is actively bleeding from NGT and mouth. Will notify MD.
[2020-08-11] MEDS: Pantoprazole Inj IVP SCH (09:21)
--- NOTE | 2020-08-11 09:21 | Pulmonology Progress Note ---
Subjective ROS Limited/Unobtainable: Yes Interval Events: Intubated overnight Constitutional: Reports: no symptoms HEENT: Repors: no symptoms Respiratory: Reports: no symptoms Cardiovascular: Reports: no symptoms Gastrointestinal/Abdominal: Reports: no symptoms Genitourinary: Reports: no symptoms Allergies: Coded Allergies: No Known Allergies (Unverified , 07/08/16) All Systems: reviewed and negative except above Objective Last 24 Hour Vital Signs Date Time Temp Pulse Resp B/P (MAP) Pulse Ox O2 Delivery O2 Flow Rate FiO2 08/11/20 09:00 69/35 08/11/20 09:00 69/35 08/11/20 08:15 72/50 08/11/20 08:00 64/51 08/11/20 08:00 64/51 08/11/20 08:00 100 08/11/20 08:00 Mechanical Ventilator 08/11/20 07:35 100 51/34 08/11/20 07:34 51/34 08/11/20 07:10 79 16 70 08/11/20 07:00 68/49 08/11/20 07:00 68/49 08/11/20 07:00 71 16 68/49 (55) 91 08/11/20 05:04 51/34 08/11/20 04:00 100 08/11/20 04:00 Mechanical Ventilator 08/11/20 04:00 100 08/11/20 03:36 104 130/92 08/11/20 03:35 130/92 08/11/20 02:49 120 24 70 08/11/20 02:34 88/40 08/11/20 02:00 141/41 08/11/20 02:00 141/42 08/11/20 02:00 121 23 142/41 (74) 98 08/11/20 01:41 120 24 92/69 (77) 99 08/11/20 00:46 118 54/34 08/11/20 00:00 75 08/11/20 00:00 116 08/11/20 00:00 Mechanical Ventilator 08/11/20 00:00 99.0 120 23 88/66 (73) 96 08/10/20 23:50 95/44 08/10/20 23:40 98.9 119 24 95/58 (70) 94 08/10/20 23:40 119 25 99/58 94 08/10/20 23:39 119 24 99/58 (72) 94 08/10/20 23:30 82/37 08/10/20 23:24 75 08/10/20 23:21 119 21 70 08/10/20 23:15 84/54 08/10/20 23:15 84/54 08/10/20 23:10 121 23 92/31 94 08/10/20 22:45 123 23 108/72 (84) 90 08/10/20 22:30 122 23 92/42 (59) 93 08/10/20 22:15 126 21 97/39 (58) 95 08/10/20 22:00 124 23 98/38 (58) 89 08/10/20 22:00 98/38 08/10/20 22:00 98/38 08/10/20 22:00 124 23 98/38 (58) 89 08/10/20 21:45 121 21 99/38 (58) 92 08/10/20 21:36 120 24 92/36 (54) 93 08/10/20 21:35 92/36 08/10/20 21:35 92/36 08/10/20 21:30 82/33 08/10/20 21:30 82/33 08/10/20 21:30 120 24 92/36 (54) 93 08/10/20 21:00 85/27 08/10/20 21:00 121 18 85/27 (46) 88 08/10/20 20:45 125 17 92/44 (60) 84 08/10/20 20:30 98/39 08/10/20 20:30 98/39 08/10/20 20:30 122 17 98/39 (58) 87 08/10/20 20:20 121 16 107/43 (64) 88 08/10/20 20:15 121 16 70/35 (47) 88 08/10/20 20:15 70/35 08/10/20 20:14 67 10 68/47 87 08/10/20 20:06 121 16 90 Mechanical Ventilator 100 08/10/20 20:06 121 16 100 08/10/20 20:00 67 08/10/20 20:00 Mechanical Ventilator 08/10/20 20:00 91/40 08/10/20 20:00 100 08/10/20 20:00 100 28 91/40 (57) 96 08/10/20 19:56 57 28 91/40 (57) 96 08/10/20 19:55 70/32 08/10/20 19:55 57 19 70/32 (45) 90 08/10/20 19:50 71/34 08/10/20 19:50 63 22 71/34 (46) 71 08/10/20 19:45 67/24 08/10/20 19:45 69 18 67/24 (38) 92 08/10/20 19:42 66 17 60/22 (35) 85 08/10/20 19:40 45/24 08/10/20 19:30 98.7 58 17 45/24 (31) 88 08/10/20 16:00 100.2 108 21 96/40 (58) 98 08/10/20 16:00 109 08/10/20 12:00 105 08/10/20 12:00 97.0 107 20 101/50 (67) 98 08/10/20 12:00 Nasal Cannula 2.0 Intake and Output 08/10/20 08/11/20 19:00 07:00 Intake Total 374.9 ml Output Total 1800 ml Balance -1425.1 ml IV Total 124.9 ml Blood Product 250 ml Output Urine Total 100 ml Gastric Drainage Total 1700 ml General Appearance: no acute distress HEENT: normocephalic Respiratory: chest wall non-tender, lungs clear Cardiovascular: normal peripheral pulses Abdomen: distended Extremities: no cyanosis Microbiology Date/Time Source Procedure Growth Status 08/08/20 14:10 Nasopharynx Coronavirus COVID-19 PCR ([facility]) - Final Complete Laboratory Tests 08/10/20 16:55: Arterial Blood pH 7.502H, Arterial Blood Partial Pressure CO2 19.5*L, Arterial Blood Partial Pressure O2 60.5L, Arterial Blood HCO3 14.9*L, Arterial Blood Oxygen Saturation 90.9L, Arterial Blood Base Excess -7.1L, Curtis Test Positive 08/10/20 19:32: Arterial Blood pH 6.943*L, Arterial Blood Partial Pressure CO2 61.6*H, Arterial Blood Partial Pressure O2 35.9*L, Arterial Blood HCO3 13.0*L, Arterial Blood Oxygen Saturation 27.5*L, Arterial Blood Base Excess -18.5*L, Curtis Test Positive 08/10/20 20:26: Arterial Blood pH 7.045*L, Arterial Blood Partial Pressure CO2 39.7, Arterial Blood Partial Pressure O2 294.3H, Arterial Blood HCO3 10.6*L, Arterial Blood Oxygen Saturation 99.7, Arterial Blood Base Excess -18.4*L, Curtis Test Positive Current Medications Medications (Trade) Dose Ordered Sig/Baldemar Route PRN Reason Start Time Stop Time Status Last Admin Dose Admin Acetaminophen (Tylenol) 650 mg Q4H PRN RECTAL Mild Pain (Pain Scale 1-3) 08/11/20 02:45 09/10/20 02:44 08/11/20 03:12 Acetaminophen (Tylenol) 650 mg Q4H PRN RECTAL Temp >100.5 08/11/20 02:45 09/10/20 02:44 Ceftriaxone Sodium 1 gm/ Dextrose 55 ml @ 110 mls/hr Q24H IVPB 08/09/20 02:00 08/16/20 01:59 08/11/20 02:11 Chlorhexidine Gluconate (Cailin-Hex 2%) 1 applic DAILY@2000 TOPIC 08/11/20 20:00 11/09/20 19:59 Dextrose 1,000 ml @ 30 mls/hr Q24H IV 08/09/20 13:00 09/08/20 12:59 08/10/20 23:26 Dopamine HCl/ Dextrose 250 ml @ 0 mls/hr Q24H IV 08/10/20 19:30 08/13/20 19:28 08/11/20 08:15 Epinephrine 1 mg/ Dextrose 250 ml @ 0 mls/hr Q24H IV 08/11/20 07:45 08/14/20 07:44 Lactulose (Cephulac) 30 gm THREE TIMES A DAY ORAL 08/09/20 09:00 09/08/20 08:59 08/10/20 13:40 Lorazepam (Ativan 2mg/ml 1ml) 2 mg Q1HR PRN IV For Seizures 08/10/20 22:22 08/17/20 22:21 08/10/20 23:10 Morphine Sulfate (Morphine Sulfate) 2 mg Q4H PRN IVP For Pain 08/09/20 09:45 08/16/20 09:44 Norepinephrine Bitartrate 8 mg/ Dextrose 250 ml @ 0 mls/hr Q24H IV 08/11/20 09:00 08/14/20 08:59 Octreotide Acetate 500 mcg/ Sodium Chloride 500 ml @ 50 mls/hr Q10H IV 08/11/20 08:00 09/10/20 07:59 08/11/20 08:52 Pantoprazole (Protonix) 40 mg EVERY 12 HOURS IVP 08/08/20 09:00 09/07/20 08:59 08/10/20 21:17 Phenylephrine HCl 50 mg/Dextrose 250 ml @ 15 mls/hr Q24H IV 08/11/20 00:45 08/14/20 00:37 08/11/20 07:35 Rifaximin (Xifaxan) 550 mg EVERY 12 HOURS ORAL 08/09/20 21:00 08/16/20 20:59 08/10/20 21:17 Assessment/Plan Assessment/Plan IMPRESSION: 1. Acute renal failure. 2. Leukocytosis. 3. Sepsis. 4. Hepatic encephalopathy. 5. Respiratory Failure 6. Severe metabolic acidocic 7. Hepato-renal syndrome DISCUSSION: Patient is doing poorly. A dialysis catheter has been placed and dialysis has been requested. Agree with broad spectrum antibiotics. Ordered prbc overnight for ongoing GI bleed Currently maxxed out on 4 pressors Almost futile care at this point She has thrombocytopenia, which is likely secondary to chronic condition. Will add steroids Roosevelt Mendoza M.D. Roosevelt Mendoza MD Aug 11, 2020 09:21
--- NOTE | 2020-08-11 09:29 | NUR ---
NURSE NOTES: Notified Dr Bell regarding patient's current condition including that 3 unit of pRBC is running. Order for CBC one hour after blood transfusion received, noted, and carried out.
--- NOTE | 2020-08-11 09:29 | General Progress Note ---
Subjective Constitutional: Reports: weakness Allergies: Coded Allergies: No Known Allergies (Unverified , 07/08/16) All Systems: reviewed and negative except above Subjective intubated sedated in icu Objective Last 24 Hour Vital Signs Date Time Temp Pulse Resp B/P (MAP) Pulse Ox O2 Delivery O2 Flow Rate FiO2 08/11/20 09:20 69/35 08/11/20 09:00 69/35 08/11/20 09:00 69/35 08/11/20 08:15 72/50 08/11/20 08:00 64/51 08/11/20 08:00 64/51 08/11/20 08:00 100 08/11/20 08:00 Mechanical Ventilator 08/11/20 07:35 100 51/34 08/11/20 07:34 51/34 08/11/20 07:10 79 16 70 08/11/20 07:00 68/49 08/11/20 07:00 68/49 08/11/20 07:00 71 16 68/49 (55) 91 08/11/20 05:04 51/34 08/11/20 04:00 100 08/11/20 04:00 Mechanical Ventilator 08/11/20 04:00 100 08/11/20 03:36 104 130/92 08/11/20 03:35 130/92 08/11/20 02:49 120 24 70 08/11/20 02:34 88/40 08/11/20 02:00 141/41 08/11/20 02:00 141/42 08/11/20 02:00 121 23 142/41 (74) 98 08/11/20 01:41 120 24 92/69 (77) 99 08/11/20 00:46 118 54/34 08/11/20 00:00 75 08/11/20 00:00 116 08/11/20 00:00 Mechanical Ventilator 08/11/20 00:00 99.0 120 23 88/66 (73) 96 08/10/20 23:50 95/44 08/10/20 23:40 98.9 119 24 95/58 (70) 94 08/10/20 23:40 119 25 99/58 94 08/10/20 23:39 119 24 99/58 (72) 94 08/10/20 23:30 82/37 08/10/20 23:24 75 08/10/20 23:21 119 21 70 08/10/20 23:15 84/54 08/10/20 23:15 84/54 08/10/20 23:10 121 23 92/31 94 08/10/20 22:45 123 23 108/72 (84) 90 08/10/20 22:30 122 23 92/42 (59) 93 08/10/20 22:15 126 21 97/39 (58) 95 08/10/20 22:00 124 23 98/38 (58) 89 08/10/20 22:00 98/38 08/10/20 22:00 98/38 08/10/20 22:00 124 23 98/38 (58) 89 08/10/20 21:45 121 21 99/38 (58) 92 08/10/20 21:36 120 24 92/36 (54) 93 08/10/20 21:35 92/36 08/10/20 21:35 92/36 08/10/20 21:30 82/33 08/10/20 21:30 82/33 08/10/20 21:30 120 24 92/36 (54) 93 08/10/20 21:00 85/27 08/10/20 21:00 121 18 85/27 (46) 88 08/10/20 20:45 125 17 92/44 (60) 84 08/10/20 20:30 98/39 08/10/20 20:30 98/39 08/10/20 20:30 122 17 98/39 (58) 87 08/10/20 20:20 121 16 107/43 (64) 88 08/10/20 20:15 121 16 70/35 (47) 88 08/10/20 20:15 70/35 08/10/20 20:14 67 10 68/47 87 08/10/20 20:06 121 16 90 Mechanical Ventilator 100 08/10/20 20:06 121 16 100 08/10/20 20:00 67 08/10/20 20:00 Mechanical Ventilator 08/10/20 20:00 91/40 08/10/20 20:00 100 08/10/20 20:00 100 28 91/40 (57) 96 08/10/20 19:56 57 28 91/40 (57) 96 08/10/20 19:55 70/32 12/12/20 19:55 57 19 70/32 (45) 90 08/10/20 19:50 71/34 08/10/20 19:50 63 22 71/34 (46) 71 08/10/20 19:45 67/24 08/10/20 19:45 69 18 67/ (38) 92 08/10/20 19:42 66 17 60/22 (35) 85 08/10/20 19:40 45/24 08/10/20 19:30 98.7 58 17 45/24 (31) 88 08/10/20 16:00 100.2 108 21 96/40 (58) 98 08/10/20 16:00 109 08/10/20 12:00 105 08/10/20 12:00 97.0 107 20 101/50 (67) 98 08/10/20 12:00 Nasal Cannula 2.0 Intake and Output 08/10/20 08/11/20 19:00 07:00 Intake Total 374.9 ml Output Total 1800 ml Balance -1425.1 ml IV Total 124.9 ml Blood Product 250 ml Output Urine Total 100 ml Gastric Drainage Total 1700 ml Laboratory Tests 08/10/20 16:55: Arterial Blood pH 7.502H, Arterial Blood Partial Pressure CO2 19.5*L, Arterial Blood Partial Pressure O2 60.5L, Arterial Blood HCO3 14.9*L, Arterial Blood Oxygen Saturation 90.9L, Arterial Blood Base Excess -7.1L, Curtis Test Positive 08/10/20 19:32: Arterial Blood pH 6.943*L, Arterial Blood Partial Pressure CO2 61.6*H, Arterial Blood Partial Pressure O2 35.9*L, Arterial Blood HCO3 13.0*L, Arterial Blood Oxygen Saturation 27.5*L, Arterial Blood Base Excess -18.5*L, Curtis Test Positive 08/10/20 20:26: Arterial Blood pH 7.045*L, Arterial Blood Partial Pressure CO2 39.7, Arterial Blood Partial Pressure O2 294.3H, Arterial Blood HCO3 10.6*L, Arterial Blood Oxygen Saturation 99.7, Arterial Blood Base Excess -18.4*L, Curtis Test Positive Height (Feet): 5 Height (Inches): 5.00 Weight (Pounds): 127 General Appearance: lethargic EENT: normal ENT inspection Neck: normal alignment Cardiovascular: normal peripheral pulses, normal rate, regular rhythm Respiratory/Chest: chest wall non-tender, lungs clear, normal breath sounds Abdomen: hypoactive bowel sounds, distended Extremities: normal inspection Edema: no edema noted Arm (L), no edema noted Arm (R), no edema noted Leg (L), no edema noted Leg (R), no edema noted Pedal (L), no edema noted Pedal (R), no edema noted Generalized Neurologic: motor weakness Skin: normal pigmentation, warm/dry Assessment/Plan Problem List: (1) Ascites ICD Codes: R18.8 - Other ascites SNOMED: 503653011 (2) Alcoholic cirrhosis ICD Codes: K70.30 - Alcoholic cirrhosis of liver without ascites SNOMED: 010728161 (3) Renal failure ICD Codes: N19 - Unspecified kidney failure SNOMED: 57029498 (4) Thrombocytopenia ICD Codes: D69.6 - Thrombocytopenia, unspecified SNOMED: 930798719 (5) Abdominal pain ICD Codes: R10.9 - Unspecified abdominal pain SNOMED: 34750976 (6) History of alcohol abuse ICD Codes: F10.11 - Alcohol abuse, in remission SNOMED: 132708013 Status: deteriorating Assessment/Plan: abx bp pain control pending pericentesis and dialysis cath cbc bmp Kailash Wyatt DO Aug 11, 2020 09:29
--- NOTE | 2020-08-11 09:50 | NUR ---
NURSE NOTES: Dr Mendoza here to see the patient. Updated him with patient's current condition. No new orders. The 3rd unit of pRBC is running. No adverse transfusion reaction noted. Afebrile. Will continue to monitor.
--- NOTE | 2020-08-11 10:24 | NUR ---
NURSE NOTES: Cousin and another family member came to visit the patient. Visitors at the door.
--- NOTE | 2020-08-11 10:47 | NUR ---
NURSE NOTES: Patient is on Levo double concentration, Norsynephrine, Epinephrine, and Dopamine at max rate. BP 60/44. HR 71. Will continue to monitor.
--- NOTE | 2020-08-11 11:07 | General Progress Note ---
Subjective ROS Limited/Unobtainable: No Allergies: Coded Allergies: No Known Allergies (Unverified , 07/08/16) Objective Last 24 Hour Vital Signs Date Time Temp Pulse Resp B/P (MAP) Pulse Ox O2 Delivery O2 Flow Rate FiO2 08/11/20 10:00 58/39 08/11/20 10:00 58/39 08/11/20 09:20 69/35 08/11/20 09:20 69/35 08/11/20 09:00 69/35 08/11/20 09:00 69/35 08/11/20 08:15 72/50 08/11/20 08:00 64/51 08/11/20 08:00 64/51 08/11/20 08:00 100 08/11/20 08:00 Mechanical Ventilator 08/11/20 07:52 81 08/11/20 07:35 100 51/34 08/11/20 07:34 51/34 08/11/20 07:10 79 16 70 08/11/20 07:00 68/49 08/11/20 07:00 68/49 08/11/20 07:00 71 16 68/49 (55) 91 08/11/20 06:45 67 16 62/46 (51) 90 08/11/20 06:30 61 17 76/40 (52) 87 08/11/20 06:15 67 16 71/49 (56) 89 08/11/20 06:00 67 16 71/49 (56) 89 08/11/20 06:00 71/49 08/11/20 06:00 71/49 08/11/20 05:45 68 16 35/18 (24) 91 08/11/20 05:41 71 16 127/79 (95) 92 08/11/20 05:30 52 16 35/20 (25) 78 08/11/20 05:30 61 16 57/19 (32) 84 08/11/20 05:15 99.8 76 16 53/43 (46) 89 08/11/20 05:04 51/34 08/11/20 05:00 51/34 08/11/20 05:00 51/34 08/11/20 05:00 56 16 31/20 (24) 95 08/11/20 05:00 77 16 51/34 (40) 96 08/11/20 04:54 44 17 114/74 (87) 88 08/11/20 04:45 95 21 123/94 (104) 95 08/11/20 04:30 102.0 99 17 112/94 (100) 98 08/11/20 04:00 101.0 96 20 121/55 (77) 99 08/11/20 04:00 100 08/11/20 04:00 Mechanical Ventilator 08/11/20 04:00 121/55 08/11/20 04:00 100 08/11/20 03:36 104 130/92 08/11/20 03:35 130/92 08/11/20 03:30 109 20 91/65 (74) 96 08/11/20 03:00 113 22 77/25 (42) 96 08/11/20 03:00 77/25 08/11/20 02:49 120 24 70 08/11/20 02:45 117 21 77/37 (50) 97 08/11/20 02:34 88/40 08/11/20 02:30 117 19 80/38 (52) 95 08/11/20 02:15 118 23 98/68 (78) 95 08/11/20 02:00 141/41 08/11/20 02:00 141/42 08/11/20 02:00 121 23 142/41 (74) 98 08/11/20 01:45 81/35 08/11/20 01:41 120 24 92/69 (77) 99 08/11/20 01:30 85/34 08/11/20 01:30 117 20 81/35 (50) 89 08/11/20 01:15 120 22 85/34 (51) 90 08/11/20 01:00 118 20 87/29 (48) 94 08/11/20 01:00 87/29 08/11/20 00:50 120 20 87/33 (51) 97 08/11/20 00:46 118 54/34 08/11/20 00:45 119 21 91/59 (70) 97 08/11/20 00:44 119 23 84/61 (69) 97 08/11/20 00:40 54/34 08/11/20 00:40 54/34 08/11/20 00:40 118 22 54/34 (41) 100 12/13/20 00:30 71/30 08/11/20 00:30 71/30 08/11/20 00:30 106 19 73/32 (46) 88 08/11/20 00:25 107 19 71/30 (44) 90 08/11/20 00:20 78/37 08/11/20 00:20 78/37 08/11/20 00:20 118 21 78/37 (51) 91 08/11/20 00:15 117 21 83/37 (52) 92 08/11/20 00:10 117 22 83/41 (55) 90 08/11/20 00:10 83/37 08/11/20 00:10 83/37 08/11/20 00:00 75 08/11/20 00:00 116 08/11/20 00:00 8808/11/20 00:00 8808/11/20 00:00 Mechanical Ventilator 08/11/20 00:00 99.0 120 23 88/66 (73) 96 08/10/20 23:55 114 23 81/26 (44) 93 08/10/20 23:50 95/44 08/10/20 23:45 118 24 78/35 (49) 99 08/10/20 23:40 98.9 119 24 95/58 (70) 94 08/10/20 23:40 119 25 99/58 94 08/10/20 23:39 119 24 99/58 (72) 94 08/10/20 23:30 82/37 08/10/20 23:30 82/37 08/10/20 23:30 117 20 82/37 (52) 91 08/10/20 23:24 75 08/10/20 23:21 119 21 70 08/10/20 23:15 84/54 08/10/20 23:15 84/54 08/10/20 23:15 116 19 84/54 (64) 97 08/10/20 23:10 121 23 92/31 94 08/10/20 23:00 119 20 92/31 (51) 94 08/10/20 23:00 92/31 08/10/20 23:00 92/31 08/10/20 22:45 123 23 108/72 (84) 90 08/10/20 22:30 122 23 92/42 (59) 93 08/10/20 22:15 126 21 97/39 (58) 95 08/10/20 22:00 124 23 98/38 (58) 89 08/10/20 22:00 98/38 08/10/20 22:00 98/38 08/10/20 22:00 124 23 98/38 (58) 89 08/10/20 21:45 121 21 99/38 (58) 92 08/10/20 21:36 120 24 92/36 (54) 93 08/10/20 21:35 92/36 08/10/20 21:35 92/36 08/10/20 21:30 82/33 08/10/20 21:30 82/33 08/10/20 21:30 120 24 92/36 (54) 93 08/10/20 21:00 85/27 08/10/20 21:00 121 18 85/27 (46) 88 08/10/20 20:45 125 17 92/44 (60) 84 08/10/20 20:30 98/39 08/10/20 20:30 98/39 08/10/20 20:30 122 17 98/39 (58) 87 08/10/20 20:20 121 16 107/43 (64) 88 08/10/20 20:15 121 16 70/35 (47) 88 08/10/20 20:15 70/35 08/10/20 20:14 67 10 68/47 87 08/10/20 20:06 121 16 90 Mechanical Ventilator 100 08/10/20 20:06 121 16 100 08/10/20 20:00 67 08/10/20 20:00 Mechanical Ventilator 08/10/20 20:00 91/40 08/10/20 20:00 100 08/10/20 20:00 100 28 91/40 (57) 96 08/10/20 19:56 57 28 91/40 (57) 96 08/10/20 19:55 70/32 08/10/20 19:55 57 19 70/32 (45) 90 08/10/20 19:50 71/34 08/10/20 19:50 63 22 71/34 (46) 71 08/10/20 19:45 67/24 08/10/20 19:45 69 18 67/24 (38) 92 08/10/20 19:42 66 17 60/22 (35) 85 08/10/20 19:40 45/24 08/10/20 19:30 98.7 58 17 45/24 (31) 88 08/10/20 16:00 100.2 108 21 96/40 (58) 98 08/10/20 16:00 109 08/10/20 12:00 105 08/10/20 12:00 97.0 107 20 101/50 (67) 98 08/10/20 12:00 Nasal Cannula 2.0 Intake and Output 08/10/20 08/11/20 18:59 06:59 Intake Total 30 ml 549.9 ml Output Total 1800 ml Balance 30 ml -1250.1 ml IV Total 30 ml 299.9 ml Blood Product 250 ml Output Urine Total 100 ml Gastric Drainage Total 1700 ml Laboratory Tests 08/10/20 16:55: Arterial Blood pH 7.502H, Arterial Blood Partial Pressure CO2 19.5*L, Arterial Blood Partial Pressure O2 60.5L, Arterial Blood HCO3 14.9*L, Arterial Blood Oxygen Saturation 90.9L, Arterial Blood Base Excess -7.1L, Curtis Test Positive 08/10/20 19:32: Arterial Blood pH 6.943*L, Arterial Blood Partial Pressure CO2 61.6*H, Arterial Blood Partial Pressure O2 35.9*L, Arterial Blood HCO3 13.0*L, Arterial Blood Oxygen Saturation 27.5*L, Arterial Blood Base Excess -18.5*L, Curtis Test Positive 08/10/20 20:26: Arterial Blood pH 7.045*L, Arterial Blood Partial Pressure CO2 39.7, Arterial Blood Partial Pressure O2 294.3H, Arterial Blood HCO3 10.6*L, Arterial Blood Oxygen Saturation 99.7, Arterial Blood Base Excess -18.4*L, Curtis Test Positive Height (Feet): 5 Height (Inches): 5.00 Weight (Pounds): 127 General Appearance: lethargic EENT: normal ENT inspection Neck: supple Cardiovascular: normal rate Respiratory/Chest: decreased breath sounds Abdomen: hypoactive bowel sounds, distended Assessment/Plan Problem List: (1) History of alcohol abuse ICD Codes: F10.11 - Alcohol abuse, in remission SNOMED: 834587746 (2) Abdominal pain ICD Codes: R10.9 - Unspecified abdominal pain SNOMED: 06260571 (3) Thrombocytopenia ICD Codes: D69.6 - Thrombocytopenia, unspecified SNOMED: 366502643 (4) Ascites ICD Codes: R18.8 - Other ascites SNOMED: 313981494 (5) Anemia, macrocytic ICD Codes: D53.9 - Nutritional anemia, unspecified SNOMED: 40595821 (6) Gallbladder sludge ICD Codes: K82.8 - Other specified diseases of gallbladder SNOMED: 78781335, 11768806 (7) Pancreatic lesion ICD Codes: K86.9 - Disease of pancreas, unspecified SNOMED: 0738088 (8) Hiatal hernia ICD Codes: K44.9 - Diaphragmatic hernia without obstruction or gangrene SNOMED: 35954453, 16288877 Status: deteriorating Assessment/Plan: paracentesis>>>canceled by IR due to elevated INR albumin iv tumor markers MRI when more stable xifaxan lactulose octreotide repeat Vit k on pressor now not stable for EGD poor prognosis abx HD per nephrology repeat labs Nelson Bell MD Aug 11, 2020 11:07
--- NOTE | 2020-08-11 11:20 | NUR ---
NURSE NOTES: Completed 3rd pRBC transfusion. Post-transfusion temp 97.5, HR 73, BP 57/42. No adverse transfusion reaction noted. Will continue to monitor.
--- NOTE | 2020-08-11 11:58 | Surgery Progress Note ---
Surgery Progress Note Subjective Additional Comments declined intubated in icu on pressors Objective Last 24 Hour Vital Signs Date Time Temp Pulse Resp B/P (MAP) Pulse Ox O2 Delivery O2 Flow Rate FiO2 08/11/20 11:26 73 16 70 08/11/20 11:20 72 57/43 08/11/20 11:00 57/42 08/11/20 11:00 57/42 08/11/20 10:00 58/39 08/11/20 10:00 58/39 08/11/20 09:20 69/35 08/11/20 09:20 69/35 08/11/20 09:00 69/35 08/11/20 09:00 69/35 08/11/20 08:15 72/50 08/11/20 08:00 64/51 08/11/20 08:00 64/51 08/11/20 08:00 100 08/11/20 08:00 Mechanical Ventilator 08/11/20 07:52 81 08/11/20 07:35 100 51/34 08/11/20 07:34 51/34 08/11/20 07:10 79 16 70 08/11/20 07:00 68/49 08/11/20 07:00 68/49 08/11/20 07:00 71 16 68/49 (55) 91 08/11/20 06:45 67 16 62/46 (51) 90 08/11/20 06:30 61 17 76/40 (52) 87 08/11/20 06:15 67 16 71/49 (56) 89 08/11/20 06:00 67 16 71/49 (56) 89 08/11/20 06:00 71/49 08/11/20 06:00 71/49 08/11/20 05:45 68 16 35/18 (24) 91 08/11/20 05:41 71 16 127/79 (95) 92 08/11/20 05:30 52 16 35/20 (25) 78 08/11/20 05:30 61 16 57/19 (32) 84 08/11/20 05:15 99.8 76 16 53/43 (46) 89 08/11/20 05:04 51/34 08/11/20 05:00 51/34 08/11/20 05:00 51/34 08/11/20 05:00 56 16 31/20 (24) 95 08/11/20 05:00 77 16 51/34 (40) 96 08/11/20 04:54 44 17 114/74 (87) 88 08/11/20 04:45 95 21 123/94 (104) 95 08/11/20 04:30 102.0 99 17 112/94 (100) 98 08/11/20 04:00 101.0 96 20 121/55 (77) 99 08/11/20 04:00 100 08/11/20 04:00 Mechanical Ventilator 08/11/20 04:00 121/55 08/11/20 04:00 100 08/11/20 03:36 104 130/92 08/11/20 03:35 130/92 08/11/20 03:30 109 20 91/65 (74) 96 08/11/20 03:00 113 22 77/25 (42) 96 08/11/20 03:00 77/25 08/11/20 02:49 120 24 70 08/11/20 02:45 117 21 77/37 (50) 97 08/11/20 02:34 88/40 08/11/20 02:30 117 19 80/38 (52) 95 08/11/20 02:15 118 23 98/68 (78) 95 08/11/20 02:00 141/41 08/11/20 02:00 141/42 08/11/20 02:00 121 23 142/41 (74) 98 08/11/20 01:45 81/35 08/11/20 01:41 120 24 92/69 (77) 99 08/11/20 01:30 85/34 08/11/20 01:30 117 20 81/35 (50) 89 08/11/20 01:15 120 22 85/34 (51) 90 08/11/20 01:00 118 20 87/29 (48) 94 08/11/20 01:00 87/29 08/11/20 00:50 120 20 87/33 (51) 97 08/11/20 00:46 118 54/34 08/11/20 00:45 119 21 91/59 (70) 97 08/11/20 00:44 119 23 84/61 (69) 97 08/11/20 00:40 54/34 08/11/20 00:40 54/34 08/11/20 00:40 118 22 54/34 (41) 100 08/11/20 00:30 71/30 08/11/20 00:30 71/30 08/11/20 00:30 106 19 73/32 (46) 88 08/11/20 00:25 107 19 71/30 (44) 90 08/11/20 00:20 78/37 08/11/20 00:20 78/37 08/11/20 00:20 118 21 78/37 (51) 91 08/11/20 00:15 117 21 83/37 (52) 92 08/11/20 00:10 117 22 83/41 (55) 90 08/11/20 00:10 83/37 08/11/20 00:10 83/37 08/11/20 00:00 75 08/11/20 00:00 116 08/11/20 00:00 88/66 08/11/20 00:00 88/08/11/20 00:00 Mechanical Ventilator 08/11/20 00:00 99.0 120 23 88/66 (73) 96 08/10/20 23:55 114 23 81/26 (44) 93 08/10/20 23:50 95/44 08/10/20 23:45 118 24 78/35 (49) 99 08/10/20 23:40 98.9 119 24 95/58 (70) 94 08/10/20 23:40 119 25 99/58 94 08/10/20 23:39 119 24 99/58 (72) 94 08/10/20 23:30 82/37 08/10/20 23:30 82/37 08/10/20 23:30 117 20 82/37 (52) 91 08/10/20 23:24 75 08/10/20 23:21 119 21 70 08/10/20 23:15 84/54 08/10/20 23:15 84/54 08/10/20 23:15 116 19 84/54 (64) 97 08/10/20 23:10 121 23 92/31 94 08/10/20 23:00 119 20 92/31 (51) 94 08/10/20 23:00 92/31 08/10/20 23:00 /08/10/20 22:45 123 23 108/72 (84) 90 08/10/20 22:30 122 23 92/42 (59) 93 08/10/20 22:15 126 21 97/39 (58) 95 08/10/20 22:00 124 23 98/38 (58) 89 20 22:00 98/38 08/10/20 22:00 98/38 08/10/20 22:00 124 23 98/38 (58) 89 08/10/20 21:45 121 21 99/38 (58) 92 08/10/20 21:36 120 24 92/36 (54) 93 08/10/20 21:35 92/36 08/10/20 21:35 92/36 08/10/20 21:30 82/33 08/10/20 21:30 82/33 08/10/20 21:30 120 24 92/36 (54) 93 08/10/20 21:00 85/27 08/10/20 21:00 121 18 85/27 (46) 88 08/10/20 20:45 125 17 92/44 (60) 84 08/10/20 20:30 98/39 08/10/20 20:30 98/39 08/10/20 20:30 122 17 98/39 (58) 87 08/10/20 20:20 121 16 107/43 (64) 88 08/10/20 20:15 121 16 70/35 (47) 88 08/10/20 20:15 70/35 08/10/20 20:14 67 10 68/47 87 08/10/20 20:06 121 16 90 Mechanical Ventilator 100 08/10/20 20:06 121 16 100 08/10/20 20:00 67 08/10/20 20:00 Mechanical Ventilator 08/10/20 20:00 91/40 08/10/20 20:00 100 08/10/20 20:00 100 28 91/40 (57) 96 08/10/20 19:56 57 28 91/40 (57) 96 08/10/20 19:55 70/32 08/10/20 19:55 57 19 70/32 (45) 90 08/10/20 19:50 71/34 08/10/20 19:50 63 22 71/34 (46) 71 08/10/20 19:45 67/24 08/10/20 19:45 69 18 67/ (38) 92 08/10/20 19:42 66 17 60/22 (35) 85 08/10/20 19:40 45/24 08/10/20 19:30 98.7 58 17 45/24 (31) 88 08/10/20 16:00 100.2 108 21 96/40 (58) 98 08/10/20 16:00 109 08/10/20 12:00 105 08/10/20 12:00 97.0 107 20 101/50 (67) 98 08/10/20 12:00 Nasal Cannula 2.0 I&O Intake and Output 08/10/20 08/11/20 19:00 07:00 Intake Total 579.9 ml Output Total 1800 ml Balance -1220.1 ml IV Total 329.9 ml Blood Product 250 ml Output Urine Total 100 ml Gastric Drainage Total 1700 ml Dressing: saturated Cardiovascular: RSR Respiratory: decreased breath sounds Abdomen: distended - fluid, decreased bowel sounds Extremities: no tenderness, no cyanosis Laboratory Tests Test 08/10/20 16:55 08/10/20 19:32 08/10/20 20:26 Arterial Blood pH 7.502 (7.350-7.450) 6.943 (7.350-7.450) 7.045 (7.350-7.450) Arterial Blood Partial Pressure CO2 19.5 mmHg (35.0-45.0) *L 61.6 mmHg (35.0-45.0) *H 39.7 mmHg (35.0-45.0) Arterial Blood Partial Pressure O2 60.5 mmHg (75.0-100.0) L 35.9 mmHg (75.0-100.0) 294.3 mmHg (75.0-100.0) H Arterial Blood HCO3 14.9 mmol/L (22.0-26.0) *L 13.0 mmol/L (22.0-26.0) *L 10.6 mmol/L (22.0-26.0) *L Arterial Blood Oxygen Saturation 90.9 % (95-100) L 27.5 % (95-100) *L 99.7 % (95-100) Arterial Blood Base Excess -7.1 (-2-2) L -18.5 (-2-2) *L -18.4 (-2-2) *L Curtis Test Positive Positive Positive Plan Problems: (1) Enterocolitis (2) Hiatal hernia (3) Pancreatic lesion (4) Gallbladder sludge (5) Lactic acidosis (6) Anemia, macrocytic (7) Ascites (8) Alcoholic cirrhosis (9) Pancreatitis (10) Renal failure (11) Thrombocytopenia (12) Metabolic acidosis (13) Abdominal pain Assessment & Plan: 40F alcoholic cirrhosis liver insufficiency ascites requiring para now with abd pain. recent admission to outside facility. ct noted. exam not acute abdomen. enteritis. panc cyst. no acute surgical intervention. okay for diet. fluids. para prn. will follow with exam and recs. thank you HD cath in hemostasis now begin HD trend labs abd exam stable ?ffp para when stable ng placed acute decline intubated in icu on support prognosis guarded cont weaning as tolerated iv flu ABDOMEN: Liver: Hepatomegaly. Gallbladder and bile ducts: Cholelithiasis/sludge. Mildly distended gallbladder, nonspecific. No ductal dilation. Pancreas: Absent IV contrast limit evaluation and assessment of size of the pancreatic lesion. There is heterogeneous mass in the head/uncinate process of the pancreas measuring up to 4.7 cm. This appears increased in size. Prominent tail of the pancreas is again noted. Spleen: Unremarkable. No splenomegaly. Adrenals: Unremarkable. No mass. Kidneys and ureters: Unremarkable. No obstructing stones. No hydronephrosis. Stomach and bowel: Thickening of the colonic wall, nonspecific and may partly reflect reactive change. Recommend clinical correlation and follow-up to exclude developing colitis. This is most pronounced in the ascending colon. Multiple fluid-filled dilated small bowel loops with scattered air-fluid levels which may reflect ileus/enteritis. Recommend clinical correlation and follow-up to exclude partial developing loose obstruction in the distal small bowel. Absent IV and oral contrast as well as diffuse ascites and soft tissue stranding limit evaluation. PELVIS: Appendix: No findings to suggest acute appendicitis. Bladder: Unremarkable. No stones. Reproductive: Unremarkable as visualized. ABDOMEN and PELVIS: Intraperitoneal space: Diffuse soft tissue stranding in the intra- abdominal fat and mesentery, nonspecific. No free air. Moderate to large free fluid in the abdomen. Bones/joints: No acute fracture. No dislocation. Soft tissues: Mild anasarca. Vasculature: Unremarkable. No abdominal aortic aneurysm. Lymph nodes: Prominent inguinal lymph nodes, probably reactive. IMPRESSION: 1. Absent IV and oral contrast limit evaluation. Mild to moderate ascites 2. Sludge/gallstones and distended gallbladder, nonspecific. 3. Follow-up HIDA scan could be obtained to exclude developing acute cholecystitis as indicated. 4. Pancreatic lesion/abnormality, which appears increased in size. Although focal pancreatitis/cystic/necrotic change can give this appearance, malignancy is difficult to exclude. 5. No free air. 6. Findings which may reflect diffuse enterocolitis. Recommend clinical correlation and follow-up to exclude partial distal small bowel obstruction. 7. Hepatomegaly. (14) History of alcohol abuse (15) Scleral icterus (16) Encounter for removal of sutures (17) Encounter for wound re-check Joao Jarvis Aug 11, 2020 11:58
[2020-08-11] MEDS ORDERED: Solu-MEDROL 40mg Inj IVP SCH (12:00)
[2020-08-11] MEDS ORDERED: Phytonadione 1 MG in D5W 55 ML IVPB ONE (13:00)
--- NOTE | 2020-08-11 13:30 | NUR ---
NURSE NOTES: Spoke with pharmacist. Pharmacy will bring up Vitamin K as per ehsan Guerra.
--- NOTE | 2020-08-11 13:40 | NUR ---
NURSE NOTES: BP 32/22, HR 54. O2 sat87%, RR 16. Made MD aware of the current condition. Will continue all the treatment as ordered. Sister and mother at bedside. Family wants to continue full code.
--- NOTE | 2020-08-11 14:05 | Nephrology Progress Note ---
Assessment/Plan Problem List: (1) Hepatorenal syndrome (2) ILEANA (acute kidney injury) (3) Alcoholic cirrhosis (4) Ascites (5) Anemia, macrocytic Assessment Acute on chronic renal failure Hyponatremia secondary to third spacing as a result of cirrhosis, ascites Jaundice Anemia, thrombocytopenia Pancreatitis, enterocolitis UTI, sepsis Plan August 11: Patient seen a half an hour ago. Discussed with RN. Patient in ICU intubated on 4 pressors. Blood pressure remains 50 to 60s. No labs available today. Patient is preterminal. Remains full code. Unable to dialyze today. Continue per consultants. August 10: Patient lethargic. Now has NG tube. Will be given lactulose through NG tube. Discussed with NOAH Murphy. Patient was dialyzed yesterday. Electrolytes much improved. Hemodialysis as needed. Will check lab tomorrow. August 09: Patient seen and examined. Discussed with NOAH Boswell. Patient has worsening renal failure and mental status is declining. Will arrange for insertion of a nontunneled dialysis catheter and attempt to dialyze. Discussed with mother Moni at [phone] who is agreeable to give consent for catheter. Previously: Continue per GI Perez catheter Urine studies 3% saline trial Kidney ultrasound 2D echocardiogram Per orders Subjective ROS Limited/Unobtainable: Yes Objective Objective Last 24 Hour Vital Signs Date Time Temp Pulse Resp B/P (MAP) Pulse Ox O2 Delivery O2 Flow Rate FiO2 08/11/20 13:22 56/35 08/11/20 12:00 100 08/11/20 12:00 97.5 70 16 56/35 (42) 94 08/11/20 12:00 Mechanical Ventilator 08/11/20 12:00 71 08/11/20 11:30 72 15 60/45 (50) 95 08/11/20 11:26 73 16 70 08/11/20 11:20 72 57/43 08/11/20 11:00 72 13 59/46 (50) 95 08/11/20 11:00 57/42 08/11/20 11:00 57/42 08/11/20 10:30 70 14 59/51 (54) 93 08/11/20 10:22 71 14 62/31 (41) 93 08/11/20 10:00 70 14 63/39 (47) 92 08/11/20 10:00 58/39 08/11/20 10:00 58/39 08/11/20 09:30 80 16 63/39 (47) 98 08/11/20 09:20 69/35 08/11/20 09:20 69/35 08/11/20 09:00 81 16 69/38 (48) 96 08/11/20 09:00 69/35 08/11/20 09:00 69/35 08/11/20 08:30 82 16 65/47 (53) 94 08/11/20 08:15 72/50 08/11/20 08:00 82 16 72/50 (57) 94 08/11/20 08:00 64/51 08/11/20 08:00 64/51 08/11/20 08:00 100 08/11/20 08:00 Mechanical Ventilator 08/11/20 07:52 81 08/11/20 07:45 79 16 70/45 (53) 94 08/11/20 07:35 100 51/34 08/11/20 07:34 51/34 08/11/20 07:30 98.8 74 16 65/53 (57) 93 08/11/20 07:10 79 16 70 08/11/20 07:00 68/49 08/11/20 07:00 68/49 08/11/20 07:00 71 16 68/49 (55) 91 08/11/20 06:45 67 16 62/46 (51) 90 08/11/20 06:30 61 17 76/40 (52) 87 08/11/20 06:15 67 16 71/49 (56) 89 08/11/20 06:00 67 16 71/49 (56) 89 08/11/20 06:00 71/49 08/11/20 06:00 71/49 08/11/20 05:45 68 16 35/18 (24) 91 08/11/20 05:41 71 16 127/79 (95) 92 08/11/20 05:30 52 16 35/20 (25) 78 08/11/20 05:30 61 16 57/19 (32) 84 08/11/20 05:15 99.8 76 16 53/43 (46) 89 08/11/20 05:04 51/34 08/11/20 05:00 51/34 08/11/20 05:00 51/34 1213/20 05:00 56 16 31/20 (24) 95 08/11/20 05:00 77 16 51/34 (40) 96 08/11/20 04:54 44 17 114/74 (87) 88 08/11/20 04:45 95 21 123/94 (104) 95 08/11/20 04:30 102.0 99 17 112/94 (100) 98 08/11/20 04:00 101.0 96 20 121/55 (77) 99 08/11/20 04:00 100 08/11/20 04:00 Mechanical Ventilator 08/11/20 04:00 121/55 08/11/20 04:00 100 08/11/20 03:36 104 130/92 08/11/20 03:35 130/92 08/11/20 03:30 109 20 91/65 (74) 96 08/11/20 03:00 113 22 77/25 (42) 96 08/11/20 03:00 77/25 08/11/20 02:49 120 24 70 08/11/20 02:45 117 21 77/37 (50) 97 08/11/20 02:34 88/40 08/11/20 02:30 117 19 80/38 (52) 95 08/11/20 02:15 118 23 98/68 (78) 95 08/11/20 02:00 141/41 08/11/20 02:00 141/42 08/11/20 02:00 121 23 142/41 (74) 98 08/11/20 01:45 81/35 08/11/20 01:41 120 24 92/69 (77) 99 08/11/20 01:30 85/34 08/11/20 01:30 117 20 81/35 (50) 89 08/11/20 01:15 120 22 85/34 (51) 90 08/11/20 01:00 118 20 87/29 (48) 94 08/11/20 01:00 87/29 08/11/20 00:50 120 20 87/33 (51) 97 08/11/20 00:46 118 54/34 08/11/20 00:45 119 21 91/59 (70) 97 08/11/20 00:44 119 23 84/61 (69) 97 08/11/20 00:40 54/34 08/11/20 00:40 54/34 08/11/20 00:40 118 22 54/34 (41) 100 08/11/20 00:30 71/30 08/11/20 00:30 71/30 08/11/20 00:30 106 19 73/32 (46) 88 08/11/20 00:25 107 19 71/30 (44) 90 08/11/20 00:20 78/37 08/11/20 00:20 78/37 08/11/20 00:20 118 21 78/37 (51) 91 08/11/20 00:15 117 21 83/37 (52) 92 08/11/20 00:10 117 22 83/41 (55) 90 08/11/20 00:10 83/37 08/11/20 00:10 83/37 08/11/20 00:00 75 08/11/20 00:00 116 08/11/20 00:00 88/08/11/20 00:00 88/08/11/20 00:00 Mechanical Ventilator 08/11/20 00:00 99.0 120 23 88/66 (73) 96 08/10/20 23:55 114 23 81/26 (44) 93 08/10/20 23:50 95/44 08/10/20 23:45 118 24 78/35 (49) 99 08/10/20 23:40 98.9 119 24 95/58 (70) 94 08/10/20 23:40 119 25 99/58 94 08/10/20 23:39 119 24 99/58 (72) 94 08/10/20 23:30 82/37 08/10/20 23:30 82/37 08/10/20 23:30 117 20 82/37 (52) 91 08/10/20 23:24 75 08/10/20 23:21 119 21 70 08/10/20 23:15 84/54 08/10/20 23:15 84/54 08/10/20 23:15 116 19 84/54 (64) 97 08/10/20 23:10 121 23 92/31 94 08/10/20 23:00 119 20 92/31 (51) 94 08/10/20 23:00 92/31 08/10/20 23:00 92/31 08/10/20 22:45 123 23 108/72 (84) 90 08/10/20 22:30 122 23 92/42 (59) 93 08/10/20 22:15 126 21 97/39 (58) 95 08/10/20 22:00 124 23 98/38 (58) 89 08/10/20 22:00 98/38 08/10/20 22:00 98/38 08/10/20 22:00 124 23 98/38 (58) 89 08/10/20 21:45 121 21 99/38 (58) 92 08/10/20 21:36 120 24 92/36 (54) 93 08/10/20 21:35 92/36 08/10/20 21:35 92/36 08/10/20 21:30 82/33 08/10/20 21:30 82/33 08/10/20 21:30 120 24 92/36 (54) 93 08/10/20 21:00 85/27 08/10/20 21:00 121 18 85/27 (46) 88 08/10/20 20:45 125 17 92/44 (60) 84 08/10/20 20:30 98/39 08/10/20 20:30 98/39 08/10/20 20:30 122 17 98/39 (58) 87 08/10/20 20:20 121 16 107/43 (64) 88 08/10/20 20:15 121 16 70/35 (47) 88 08/10/20 20:15 70/35 08/10/20 20:14 67 10 68/47 87 08/10/20 20:06 121 16 90 Mechanical Ventilator 100 08/10/20 20:06 121 16 100 08/10/20 20:00 67 08/10/20 20:00 Mechanical Ventilator 08/10/20 20:00 91/40 08/10/20 20:00 100 08/10/20 20:00 100 28 91/40 (57) 96 08/10/20 19:56 57 28 91/40 (57) 96 08/10/20 19:55 70/32 08/10/20 19:55 57 19 70/32 (45) 90 08/10/20 19:50 71/34 08/10/20 19:50 63 22 71/34 (46) 71 08/10/20 19:45 67/24 08/10/20 19:45 69 18 (38) 92 08/10/20 19:42 66 17 60/22 (35) 85 08/10/20 19:40 45/24 08/10/20 19:30 98.7 58 17 45/ (31) 88 08/10/20 16:00 100.2 108 21 96/40 (58) 98 08/10/20 16:00 109 Intake and Output 08/10/20 08/11/20 19:00 07:00 Intake Total 579.9 ml Output Total 1800 ml Balance -1220.1 ml IV Total 329.9 ml Blood Product 250 ml Output Urine Total 100 ml Gastric Drainage Total 1700 ml Laboratory Tests 08/10/20 16:55: Arterial Blood pH 7.502H, Arterial Blood Partial Pressure CO2 19.5*L, Arterial Blood Partial Pressure O2 60.5L, Arterial Blood HCO3 14.9*L, Arterial Blood Oxygen Saturation 90.9L, Arterial Blood Base Excess -7.1L, Curtis Test Positive 08/10/20 19:32: Arterial Blood pH 6.943*L, Arterial Blood Partial Pressure CO2 61.6*H, Arterial Blood Partial Pressure O2 35.9*L, Arterial Blood HCO3 13.0*L, Arterial Blood Oxygen Saturation 27.5*L, Arterial Blood Base Excess -18.5*L, Curtis Test Positive 08/10/20 20:26: Arterial Blood pH 7.045*L, Arterial Blood Partial Pressure CO2 39.7, Arterial Blood Partial Pressure O2 294.3H, Arterial Blood HCO3 10.6*L, Arterial Blood Oxygen Saturation 99.7, Arterial Blood Base Excess -18.4*L, Curtis Test Positive Height (Feet): 5 Height (Inches): 5.00 Weight (Pounds): 127 General Appearance: no apparent distress EENT: other - Intubated on ventilator Cardiovascular: normal rate Respiratory/Chest: decreased breath sounds Abdomen: distended Vicente Gonzales MD Aug 11, 2020 14:05
[2020-08-11] MEDS ORDERED: NS 275ml ONE ×2 (14:14→14:16)
[2020-08-11] MEDS ORDERED: Sodium Bicarbonate 50ml Carp ONE (14:14)
[2020-08-11] MEDS ORDERED: Rocuronium Bromide 50mg/5ml Inj IV ONE (14:14)
[2020-08-11] MEDS ORDERED: Calcium Chloride 10% 10ml carpuject IVP ONE (14:14)
[2020-08-11] MEDS ORDERED: Tubing Blood Filter IV ONE ×2 (14:14→14:16)
[2020-08-11] MEDS ORDERED: Etomidate 40mg/20ml Inj IV ONE (14:14)
[2020-08-11] MEDS ORDERED: Tubing IV Secondary IV ONE (14:14)
[2020-08-11] MEDS ORDERED: Meropenem 1 GM in NS 55 ML IVPB SCH (14:15)
--- NOTE | 2020-08-11 14:15 | NUR ---
NURSE NOTES: Called Code Blue since patient is asystole. Performed code blue according to ACLS guideline with ER DR Mar. Code completed at 1415. Doctor pounced at 1415. Notified Dr Mi, Dr Gonzales, and Dr Cooley and family members. Addendum: 08/11/20 at 1919 by FROILAN HAHN RN RN NURSE NOTES: Called Code Blue at 1400 since patient is asystole. Performed code blue according to ACLS guideline with ER DR Mar. Code completed at 1415. Doctor pounced at 1415. Notified Dr Mi, Dr Gonzales, and Dr Cooley and family members.
[2020-08-11] MEDS ORDERED: Sterile Water Irrig 1000ml IRRIG ONE (14:16)
[2020-08-11] MEDS ORDERED: D5W 275ml ONE (14:16)
--- NOTE | 2020-08-11 14:16 | Infectious Diseases Prog Note ---
Assessment/Plan 40yo F with: Sepsis Shock / septic , Hypo Afebrile Leukocytosis Massive ascites R/o SBP 12/10 BCx p UA 15-20 WBC, UCx NTD CXR: Streaky bibasilar airspace opacities likely representing subsegmental atelectasis given low lung volumes, but pneumonia should be excluded clinically. COVID PCR neg Alcoholic cirrhosis c/b ascites, varices, portal HTN Recurrent need for paracenteses Thrombocytopenia to 70s Elevated LFTs, AST>ALT Pancreatic mass 08/08 CT A/P wo con: Mild to moderate ascites 2. Sludge/gallstones and distended gallbladder, nonspecific. 4. Pancreatic lesion/abnormality, which appears increased in size. Although focal pancreatitis/cystic/necrotic change can give this appearance, malignancy is difficult to exclude. 5. No free air. 6. Findings which may reflect diffuse enterocolitis. 7. Hepatomegaly. ILEANA on CKD, Cr 3.0, worsening 08/08 Renal US: 1. No hydronephrosis or nephrolithiasis. 2. Nonvisualized urinary bladder. 3. Gallbladder sludge with dilated common bile duct which contains low-level echoes which may represent blood products or debris. Consider correlation with MRI/MRCP or ERCP as clinically indicated. 4. Reversal of flow in the main portal vein. 5. Large volume ascites. Plan: Change AB Rx to Mycamine, Merrem Vanco , DC CTX 1g daily #3 empiric R/o SBP from ascites - send fluid for cell count and diff, bacterial cx F/u BCx, UCx 12/10 Trend WBC Trend LFTs Monitor CBC/CMP Monitor temp curve, hemodynamics Monitor resp status D/w RN Thank you for this consult. [facility] will continue to follow. Subjective Allergies: Coded Allergies: No Known Allergies (Unverified , 07/08/16) pt is coded Objective Last 24 Hour Vital Signs Date Time Temp Pulse Resp B/P (MAP) Pulse Ox O2 Delivery O2 Flow Rate FiO2 08/11/20 13:22 56/35 08/11/20 12:00 100 08/11/20 12:00 97.5 70 16 56/35 (42) 94 08/11/20 12:00 Mechanical Ventilator 08/11/20 12:00 71 08/11/20 11:30 72 15 60/45 (50) 95 08/11/20 11:26 73 16 70 08/11/20 11:20 72 57/43 08/11/20 11:00 72 13 59/46 (50) 95 08/11/20 11:00 57/42 08/11/20 11:00 57/42 08/11/20 10:30 70 14 59/51 (54) 93 08/11/20 10:22 71 14 62/31 (41) 93 08/11/20 10:00 70 14 63/39 (47) 92 08/11/20 10:00 58/39 08/11/20 10:00 58/39 08/11/20 09:30 80 16 63/39 (47) 98 08/11/20 09:20 69/35 08/11/20 09:20 69/35 08/11/20 09:00 81 16 69/38 (48) 96 08/11/20 09:00 69/35 08/11/20 09:00 69/35 08/11/20 08:30 82 16 65/47 (53) 94 08/11/20 08:15 72/50 08/11/20 08:00 82 16 72/50 (57) 94 08/11/20 08:00 64/51 08/11/20 08:00 64/51 08/11/20 08:00 100 08/11/20 08:00 Mechanical Ventilator 08/11/20 07:52 81 08/11/20 07:45 79 16 70/45 (53) 94 08/11/20 07:35 100 51/34 08/11/20 07:34 51/34 08/11/20 07:30 98.8 74 16 65/53 (57) 93 08/11/20 07:10 79 16 70 08/11/20 07:00 68/49 08/11/20 07:00 68/49 08/11/20 07:00 71 16 68/49 (55) 91 08/11/20 06:45 67 16 62/46 (51) 90 08/11/20 06:30 61 17 76/40 (52) 87 08/11/20 06:15 67 16 71/49 (56) 89 08/11/20 06:00 67 16 71/49 (56) 89 08/11/20 06:00 71/49 08/11/20 06:00 71/49 08/11/20 05:45 68 16 35/18 (24) 91 08/11/20 05:41 71 16 127/79 (95) 92 08/11/20 05:30 52 16 35/20 (25) 78 08/11/20 05:30 61 16 57/19 (32) 84 08/11/20 05:15 99.8 76 16 53/43 (46) 89 08/11/20 05:04 51/34 08/11/20 05:00 51/34 08/11/20 05:00 51/34 08/11/20 05:00 56 16 31/20 (24) 95 08/11/20 05:00 77 16 51/34 (40) 96 08/11/20 04:54 44 17 114/74 (87) 88 08/11/20 04:45 95 21 123/94 (104) 95 08/11/20 04:30 102.0 99 17 112/94 (100) 98 08/11/20 04:00 101.0 96 20 121/55 (77) 99 08/11/20 04:00 100 08/11/20 04:00 Mechanical Ventilator 08/11/20 04:00 121/55 08/11/20 04:00 100 08/11/20 03:36 104 130/92 08/11/20 03:35 130/92 08/11/20 03:30 109 20 91/65 (74) 96 08/11/20 03:00 113 22 77/25 (42) 96 08/11/20 03:00 77/25 08/11/20 02:49 120 24 70 08/11/20 02:45 117 21 77/37 (50) 97 08/11/20 02:34 88/40 08/11/20 02:30 117 19 80/38 (52) 95 08/11/20 02:15 118 23 98/68 (78) 95 08/11/20 02:00 141/41 08/11/20 02:00 141/42 08/11/20 02:00 121 23 142/41 (74) 98 08/11/20 01:45 81/35 08/11/20 01:41 120 24 92/69 (77) 99 08/11/20 01:30 85/34 08/11/20 01:30 117 20 81/35 (50) 89 08/11/20 01:15 120 22 85/34 (51) 90 08/11/20 01:00 118 20 87/29 (48) 94 08/11/20 01:00 87/29 08/11/20 00:50 120 20 87/33 (51) 97 08/11/20 00:46 118 54/34 08/11/20 00:45 119 21 91/59 (70) 97 08/11/20 00:44 119 23 84/61 (69) 97 08/11/20 00:40 54/34 08/11/20 00:40 54/34 08/11/20 00:40 118 22 54/34 (41) 100 08/11/20 00:30 71/30 08/11/20 00:30 71/30 08/11/20 00:30 106 19 73/32 (46) 88 08/11/20 00:25 107 19 71/30 (44) 90 08/11/20 00:20 78/37 08/11/20 00:20 78/37 08/11/20 00:20 118 21 78/37 (51) 91 08/11/20 00:15 117 21 83/37 (52) 92 08/11/20 00:10 117 22 83/41 (55) 90 08/11/20 00:10 83/37 08/11/20 00:10 83/37 08/11/20 00:00 75 08/11/20 00:00 116 08/11/20 00:00 88/66 08/11/20 00:00 88/66 08/11/20 00:00 Mechanical Ventilator 08/11/20 00:00 99.0 120 23 88/66 (73) 96 08/10/20 23:55 114 23 81/26 (44) 93 08/10/20 23:50 95/44 08/10/20 23:45 118 24 78/35 (49) 99 08/10/20 23:40 98.9 119 24 95/58 (70) 94 08/10/20 23:40 119 25 99/58 94 08/10/20 23:39 119 24 99/58 (72) 94 08/10/20 23:30 82/37 08/10/20 23:30 82/37 08/10/20 23:30 117 20 82/37 (52) 91 08/10/20 23:24 75 08/10/20 23:21 119 21 70 08/10/20 23:15 84/54 08/10/20 23:15 84/54 08/10/20 23:15 116 19 84/54 (64) 97 08/10/20 23:10 121 23 92/31 94 08/10/20 23:00 119 20 92/31 (51) 94 08/10/20 23:00 92/31 08/10/20 23:00 92/31 08/10/20 22:45 123 23 108/72 (84) 90 08/10/20 22:30 122 23 92/42 (59) 93 08/10/20 22:15 126 21 97/39 (58) 95 08/10/20 22:00 124 23 98/38 (58) 89 08/10/20 22:00 98/38 08/10/20 22:00 98/38 08/10/20 22:00 124 23 98/38 (58) 89 08/10/20 21:45 121 21 99/38 (58) 92 08/10/20 21:36 120 24 92/36 (54) 93 08/10/20 21:35 92/36 08/10/20 21:35 92/36 08/10/20 21:30 82/33 08/10/20 21:30 82/33 08/10/20 21:30 120 24 92/36 (54) 93 08/10/20 21:00 85/27 08/10/20 21:00 121 18 85/27 (46) 88 08/10/20 20:45 125 17 92/44 (60) 84 08/10/20 20:30 98/39 08/10/20 20:30 98/39 08/10/20 20:30 122 17 98/39 (58) 87 08/10/20 20:20 121 16 107/43 (64) 88 08/10/20 20:15 121 16 70/35 (47) 88 08/10/20 20:15 70/35 08/10/20 20:14 67 10 68/47 87 08/10/20 20:06 121 16 90 Mechanical Ventilator 100 08/10/20 20:06 121 16 100 08/10/20 20:00 67 08/10/20 20:00 Mechanical Ventilator 08/10/20 20:00 91/40 08/10/20 20:00 100 08/10/20 20:00 100 28 91/40 (57) 96 08/10/20 19:56 57 28 91/40 (57) 96 08/10/20 19:55 70/32 08/10/20 19:55 57 19 70/32 (45) 90 08/10/20 19:50 71/34 08/10/20 19:50 63 22 71/34 (46) 71 08/10/20 19:45 67/24 08/10/20 19:45 69 18 67/24 (38) 92 08/10/20 19:42 66 17 60/22 (35) 85 08/10/20 19:40 45/24 08/10/20 19:30 98.7 58 17 45/24 (31) 88 08/10/20 16:00 100.2 108 21 96/40 (58) 98 08/10/20 16:00 109 Height (Feet): 5 Height (Inches): 5.00 Weight (Pounds): 127 Microbiology Date/Time Source Procedure Growth Status 08/08/20 14:10 Nasopharynx Coronavirus COVID-19 PCR ([facility]) - Final Complete Laboratory Tests Test 08/10/20 16:55 08/10/20 19:32 08/10/20 20:26 Arterial Blood pH 7.502 (7.350-7.450) 6.943 (7.350-7.450) 7.045 (7.350-7.450) Arterial Blood Partial Pressure CO2 19.5 mmHg (35.0-45.0) *L 61.6 mmHg (35.0-45.0) *H 39.7 mmHg (35.0-45.0) Arterial Blood Partial Pressure O2 60.5 mmHg (75.0-100.0) L 35.9 mmHg (75.0-100.0) 294.3 mmHg (75.0-100.0) H Arterial Blood HCO3 14.9 mmol/L (22.0-26.0) *L 13.0 mmol/L (22.0-26.0) *L 10.6 mmol/L (22.0-26.0) *L Arterial Blood Oxygen Saturation 90.9 % (95-100) L 27.5 % (95-100) *L 99.7 % (95-100) Arterial Blood Base Excess -7.1 (-2-2) L -18.5 (-2-2) *L -18.4 (-2-2) *L Curtis Test Positive Positive Positive Current Medications Medications (Trade) Dose Ordered Sig/Baldemar Route PRN Reason Start Time Stop Time Status Last Admin Dose Admin Acetaminophen (Tylenol) 650 mg Q4H PRN RECTAL Mild Pain (Pain Scale 1-3) 08/11/20 02:45 09/10/20 02:44 08/11/20 03:12 Acetaminophen (Tylenol) 650 mg Q4H PRN RECTAL Temp >100.5 08/11/20 02:45 09/10/20 02:44 Ceftriaxone Sodium 1 gm/ Dextrose 55 ml @ 110 mls/hr Q24H IVPB 08/09/20 02:00 08/16/20 01:59 08/11/20 02:11 Chlorhexidine Gluconate (Cailin-Hex 2%) 1 applic DAILY@2000 TOPIC 08/11/20 20:00 11/09/20 19:59 Dextrose 1,000 ml @ 30 mls/hr Q24H IV 08/09/20 13:00 09/08/20 12:59 08/10/20 23:26 Dopamine HCl/ Dextrose 250 ml @ 0 mls/hr Q24H IV 08/10/20 19:30 08/13/20 19:28 08/11/20 13:22 Epinephrine 1 mg/ Dextrose 250 ml @ 0 mls/hr Q24H IV 08/11/20 07:45 08/14/20 07:44 08/11/20 12:00 Lactulose (Cephulac) 30 gm THREE TIMES A DAY ORAL 08/09/20 09:00 09/08/20 08:59 08/10/20 13:40 Lorazepam (Ativan 2mg/ml 1ml) 2 mg Q1HR PRN IV For Seizures 08/10/20 22:22 08/17/20 22:21 08/10/20 23:10 Methylprednisolone Sodium Succinate (Solu-MEDROL) 40 mg EVERY 6 HOURS IVP 08/11/20 12:00 11/09/20 11:59 08/11/20 12:10 Morphine Sulfate (Morphine Sulfate) 2 mg Q4H PRN IVP For Pain 08/09/20 09:45 08/16/20 09:44 Norepinephrine Bitartrate 8 mg/ Dextrose 250 ml @ 0 mls/hr Q24H IV 08/11/20 09:00 08/14/20 08:59 08/11/20 09:20 Octreotide Acetate 500 mcg/ Sodium Chloride 500 ml @ 50 mls/hr Q10H IV 08/11/20 08:00 09/10/20 07:59 08/11/20 08:52 Pantoprazole (Protonix) 40 mg EVERY 12 HOURS IVP 08/08/20 09:00 09/07/20 08:59 08/11/20 09:21 Phenylephrine HCl 50 mg/Dextrose 250 ml @ 15 mls/hr Q24H IV 08/11/20 00:45 08/14/20 00:37 08/11/20 11:20 Rifaximin (Xifaxan) 550 mg EVERY 12 HOURS ORAL 08/09/20 21:00 08/16/20 20:59 08/10/20 21:17 Lee Guidry MD Aug 11, 2020 14:16
--- NOTE | 2020-08-11 14:27 | Emergency Room Report ---
History of Present Illness General Chief Complaint: Abdominal Pain Source: Patient, Medical Record, PMD Present Illness Allergies: Coded Allergies: No Known Allergies (Unverified , 07/08/16) COVID-19 Screening Contact w/high risk pt: No Experienced COVID-19 symptoms?: No COVID-19 Testing performed CREDIT RISK OFFICER: No COVID-19 Screening: Negative COVID-19 Patient History Now: No Nursing Documentation-PMH Past Medical History: No History, Except For Hx Cardiac Problems: Yes - liver cirrhosis, ascites, gastritis Hx Gastrointestinal Problems: Yes - gastritis Physical Exam Vital Signs Date Time Temp Pulse Resp B/P (MAP) Pulse Ox O2 Delivery O2 Flow Rate FiO2 08/08/20 01:39 95.7 111 18 119/64 (82) 100 Room Air 08/10/20 00:00 2.0 08/10/20 20:00 100 Procedures CPR/Code Blue CPR/Code Blue Narrative I was contacted to evaluate patient for CODE BLUE. Patient had prior history of cirrhosis and recently on dialysis. Had not been dialyzed for 2 days. Had CPR ongoing prior to my arrival. No response to medications to this point. Patient was given additional dose of bicarb as well as calcium due to possible hyperka lemia. See code sheet for full details. Patient had persistent asystole. Patient was pronounced at 1415. Family to be been notified by staff. Medical Decision Making Diagnostic Impression: Primary Impression: Abdominal pain Additional Impressions: Pancreatic lesion Gallbladder sludge Anemia, macrocytic Ascites Alcoholic cirrhosis Pancreatitis Renal failure Thrombocytopenia History of alcohol abuse Metabolic acidosis Scleral icterus Enterocolitis Hiatal hernia Lactic acidosis Last Vital Signs Date Time Temp Pulse Resp B/P (MAP) Pulse Ox O2 Delivery O2 Flow Rate FiO2 08/11/20 13:22 56/35 08/11/20 12:00 100 08/11/20 12:00 97.5 70 16 94 08/11/20 12:00 Mechanical Ventilator 08/10/20 12:00 2.0 Disposition: ADMITTED INPATIENT Condition: Stable Referrals: NON PHYSICIAN (PCP) Danny Mar MD Aug 11, 2020 14:27
[2020-08-11] MEDS ORDERED: Micafungin 100 MG in NS 110 ML IVPB SCH (15:00)
--- NOTE | 2020-08-11 15:10 | NUR ---
NURSE NOTES: [facility] called by charge nurse. [facility] will pepper picker body in 2 hours.
--- NOTE | 2020-08-11 15:58 | Cardiac Electrophysiology PN ---
Assessment/Plan Assessment/Plan 1. Sinus tachycardia due to sepsis, renal failure, hyponatremia, and cirrhosis of the liver. There is no evidence of atrial fibrillation Echo EF 70% 2. Cirrhosis of the liver, status post multiple paracenteses. FU by Dr. Bell 3. Septic and hemorrhagic shock. Maxed out on 4 pressors. 4. Respiratory failure on the Vent 5. History of heavy alcohol use. 6. Pancreatic lesion. 7. Acute renal failure. S/P hemodialysis per Dr. Gonzales. SARAI RN Patient was coded and subsequently in ICU Subjective Subjective Critically ill in ICU intubated on 4 pressors. Added Dopamine over night as BP was still low despite 3 pressors and PRBCx 2 Objective Last 24 Hour Vital Signs Date Time Temp Pulse Resp B/P (MAP) Pulse Ox O2 Delivery O2 Flow Rate FiO2 08/11/20 14:00 08/11/20 14:00 08/11/20 13:30 68 16 50/30 (37) 93 08/11/20 13:22 56/35 08/11/20 13:00 49/26 08/11/20 13:00 49/26 08/11/20 13:00 73 16 57/27 (37) 95 08/11/20 12:45 74 16 47/31 (36) 95 08/11/20 12:30 67 16 65/35 (45) 95 08/11/20 12:15 69 16 52/37 (42) 93 08/11/20 12:00 100 08/11/20 12:00 97.5 70 16 56/35 (42) 94 08/11/20 12:00 Mechanical Ventilator 08/11/20 12:00 52/37 08/11/20 12:00 52/37 08/11/20 12:00 71 08/11/20 11:30 72 15 60/45 (50) 95 08/11/20 11:26 73 16 70 08/11/20 11:20 72 57/43 08/11/20 11:00 72 13 59/46 (50) 95 08/11/20 11:00 57/42 08/11/20 11:00 57/42 08/11/20 10:30 70 14 59/51 (54) 93 08/11/20 10:22 71 14 62/31 (41) 93 08/11/20 10:15 71 16 63/39 (47) 92 08/11/20 10:00 70 14 63/39 (47) 92 08/11/20 10:00 58/39 08/11/20 10:00 58/39 08/11/20 09:45 69 16 60/49 (53) 92 08/11/20 09:30 80 16 63/39 (47) 98 08/11/20 09:20 69/35 08/11/20 09:20 69/35 08/11/20 09:15 80 16 61/39 (46) 95 08/11/20 09:00 81 16 69/38 (48) 96 08/11/20 09:00 69/35 08/11/20 09:00 69/35 08/11/20 08:30 82 16 65/47 (53) 94 08/11/20 08:15 72/50 08/11/20 08:00 82 16 72/50 (57) 94 08/11/20 08:00 64/51 08/11/20 08:00 64/51 08/11/20 08:00 100 08/11/20 08:00 Mechanical Ventilator 08/11/20 07:52 81 08/11/20 07:45 79 16 70/45 (53) 94 08/11/20 07:35 100 51/34 08/11/20 07:34 51/34 08/11/20 07:30 98.8 74 16 65/53 (57) 93 08/11/20 07:10 79 16 70 08/11/20 07:00 68/49 08/11/20 07:00 68/49 08/11/20 07:00 71 16 68/49 (55) 91 08/11/20 06:45 67 16 62/46 (51) 90 08/11/20 06:30 61 17 76/40 (52) 87 08/11/20 06:15 67 16 71/49 (56) 89 08/11/20 06:00 67 16 71/49 (56) 89 08/11/20 06:00 71/49 08/11/20 06:00 71/49 08/11/20 05:45 68 16 35/18 (24) 91 08/11/20 05:41 71 16 127/79 (95) 92 08/11/20 05:30 52 16 35/20 (25) 78 08/11/20 05:30 61 16 57/19 (32) 84 08/11/20 05:15 99.8 76 16 53/43 (46) 89 08/11/20 05:04 51/34 08/11/20 05:00 51/34 08/11/20 05:00 51/34 08/11/20 05:00 56 16 31/20 (24) 95 08/11/20 05:00 77 16 51/34 (40) 96 08/11/20 04:54 44 17 114/74 (87) 88 08/11/20 04:45 95 21 123/94 (104) 95 08/11/20 04:30 102.0 99 17 112/94 (100) 98 08/11/20 04:00 101.0 96 20 121/55 (77) 99 08/11/20 04:00 100 08/11/20 04:00 Mechanical Ventilator 08/11/20 04:00 121/55 08/11/20 04:00 100 08/11/20 03:36 104 130/92 08/11/20 03:35 130/92 08/11/20 03:30 109 20 91/65 (74) 96 08/11/20 03:00 113 22 77/25 (42) 96 08/11/20 03:00 77/25 08/11/20 02:49 120 24 70 08/11/20 02:45 117 21 77/37 (50) 97 08/11/20 02:34 88/40 08/11/20 02:30 117 19 80/38 (52) 95 08/11/20 02:15 118 23 98/68 (78) 95 08/11/20 02:00 141/41 08/11/20 02:00 141/42 08/11/20 02:00 121 23 142/41 (74) 98 08/11/20 01:45 81/35 08/11/20 01:41 120 24 92/69 (77) 99 08/11/20 01:30 85/34 08/11/20 01:30 117 20 81/35 (50) 89 08/11/20 01:15 120 22 85/34 (51) 90 08/11/20 01:00 118 20 87/29 (48) 94 08/11/20 01:00 87/29 08/11/20 00:50 120 20 87/33 (51) 97 08/11/20 00:46 118 54/34 08/11/20 00:45 119 21 91/59 (70) 97 08/11/20 00:44 119 23 84/61 (69) 97 08/11/20 00:40 54/34 08/11/20 00:40 54/34 08/11/20 00:40 118 22 54/34 (41) 100 08/11/20 00:30 71/30 08/11/20 00:30 71/30 08/11/20 00:30 106 19 73/32 (46) 88 08/11/20 00:25 107 19 71/30 (44) 90 08/11/20 00:20 78/37 08/11/20 00:20 78/37 08/11/20 00:20 118 21 78/37 (51) 91 08/11/20 00:15 117 21 83/37 (52) 92 08/11/20 00:10 117 22 83/41 (55) 90 08/11/20 00:10 83/37 08/11/20 00:10 83/37 08/11/20 00:00 75 08/11/20 00:00 116 08/11/20 00:00 88/08/11/20 00:00 88/66 08/11/20 00:00 Mechanical Ventilator 08/11/20 00:00 99.0 120 23 88/66 (73) 96 08/10/20 23:55 114 23 81/26 (44) 93 08/10/20 23:50 95/44 08/10/20 23:45 118 24 78/35 (49) 99 08/10/20 23:40 98.9 119 24 95/58 (70) 94 08/10/20 23:40 119 25 99/58 94 08/10/20 23:39 119 24 99/58 (72) 94 08/10/20 23:30 82/37 08/10/20 23:30 82/37 08/10/20 23:30 117 20 82/37 (52) 91 08/10/20 23:24 75 08/10/20 23:21 119 21 70 08/10/20 23:15 84/54 08/10/20 23:15 84/54 08/10/20 23:15 116 19 84/54 (64) 97 08/10/20 23:10 121 23 92/31 94 08/10/20 23:00 119 20 92/31 (51) 94 08/10/20 23:00 92/31 08/10/20 23:00 92/31 08/10/20 22:45 123 23 108/72 (84) 90 08/10/20 22:30 122 23 92/42 (59) 93 08/10/20 22:15 126 21 97/39 (58) 95 08/10/20 22:00 124 23 98/38 (58) 89 08/10/20 22:00 98/38 08/10/20 22:00 98/38 08/10/20 22:00 124 23 98/38 (58) 89 08/10/20 21:45 121 21 99/38 (58) 92 08/10/20 21:36 120 24 92/36 (54) 93 08/10/20 21:35 92/36 08/10/20 21:35 92/36 08/10/20 21:30 82/33 08/10/20 21:30 82/33 08/10/20 21:30 120 24 92/36 (54) 93 08/10/20 21:00 85/27 08/10/20 21:00 121 18 85/27 (46) 88 08/10/20 20:45 125 17 92/44 (60) 84 08/10/20 20:30 98/39 08/10/20 20:30 98/39 08/10/20 20:30 122 17 98/39 (58) 87 08/10/20 20:20 121 16 107/43 (64) 88 08/10/20 20:15 121 16 70/35 (47) 88 08/10/20 20:15 70/35 08/10/20 20:14 67 10 68/47 87 08/10/20 20:06 121 16 90 Mechanical Ventilator 100 08/10/20 20:06 121 16 100 08/10/20 20:00 67 08/10/20 20:00 Mechanical Ventilator 08/10/20 20:00 91/40 08/10/20 20:00 100 12/12/20 20:00 100 28 91/40 (57) 96 08/10/20 19:56 57 28 91/40 (57) 96 08/10/20 19:55 70/32 08/10/20 19:55 57 19 70/32 (45) 90 08/10/20 19:50 71/34 08/10/20 19:50 63 22 71/34 (46) 71 08/10/20 19:45 67/24 08/10/20 19:45 69 18 67/24 (38) 92 08/10/20 19:42 66 17 60/22 (35) 85 08/10/20 19:40 45/24 08/10/20 19:30 98.7 58 17 45/24 (31) 88 08/10/20 16:00 100.2 108 21 96/40 (58) 98 08/10/20 16:00 109 Intake and Output 08/10/20 08/11/20 19:00 07:00 Intake Total 579.9 ml Output Total 1800 ml Balance -1220.1 ml IV Total 329.9 ml Blood Product 250 ml Output Urine Total 100 ml Gastric Drainage Total 1700 ml Laboratory Tests Test 08/10/20 16:55 08/10/20 19:32 08/10/20 20:26 Arterial Blood pH 7.502 (7.350-7.450) 6.943 (7.350-7.450) 7.045 (7.350-7.450) Arterial Blood Partial Pressure CO2 19.5 mmHg (35.0-45.0) *L 61.6 mmHg (35.0-45.0) *H 39.7 mmHg (35.0-45.0) Arterial Blood Partial Pressure O2 60.5 mmHg (75.0-100.0) L 35.9 mmHg (75.0-100.0) 294.3 mmHg (75.0-100.0) H Arterial Blood HCO3 14.9 mmol/L (22.0-26.0) *L 13.0 mmol/L (22.0-26.0) *L 10.6 mmol/L (22.0-26.0) *L Arterial Blood Oxygen Saturation 90.9 % (95-100) L 27.5 % (95-100) *L 99.7 % (95-100) Arterial Blood Base Excess -7.1 (-2-2) L -18.5 (-2-2) *L -18.4 (-2-2) *L Curtis Test Positive Positive Positive Objective HEAD AND NECK: Orally intubated LUNGS: Coarse rhonchi. CARDIOVASCULAR: Tachy S1 and S2 with no gallop. ABDOMEN: Soft with ascites. EXTREMITIES: 2+ pitting edema. Tacos Cooley MD Aug 11, 2020 15:58
[2020-08-11] MEDS ORDERED: Vancomycin 1.25gm/250ml Premix IVPB ONE (16:00)
[2020-08-11] MEDS ORDERED: Meropenem 500mg/NS 55ml IVPB SCH ×2 (16:00)
--- NOTE | 2020-08-11 18:26 | Neurology Progress Note ---
Interim History Interim History ROS Limited/Unobtainable: Yes Interim History When I came to do my consultation. Code maynor was called a few mins prior. ER doc and RR team was bedside performing ACLS/CPR. Pt was not able to be revived. Pt was doing poorly prior as she was on 3 pressors and BP was not responding. Objective Physical Exam Last Vital Signs Date Time Temp Pulse Resp B/P (MAP) Pulse Ox O2 Delivery O2 Flow Rate FiO2 08/11/20 14:00 08/11/20 13:30 68 16 93 08/11/20 12:00 100 08/11/20 12:00 97.5 08/11/20 12:00 Mechanical Ventilator 08/10/20 12:00 2.0 Laboratory Tests Test 08/10/20 19:32 08/10/20 20:26 Arterial Blood pH 6.943 (7.350-7.450) 7.045 (7.350-7.450) Arterial Blood Partial Pressure CO2 61.6 mmHg (35.0-45.0) *H 39.7 mmHg (35.0-45.0) Arterial Blood Partial Pressure O2 35.9 mmHg (75.0-100.0) 294.3 mmHg (75.0-100.0) H Arterial Blood HCO3 13.0 mmol/L (22.0-26.0) *L 10.6 mmol/L (22.0-26.0) *L Arterial Blood Oxygen Saturation 27.5 % (95-100) *L 99.7 % (95-100) Arterial Blood Base Excess -18.5 (-2-2) *L -18.4 (-2-2) *L Curtis Test Positive Positive Impression/Recommendations Status: deteriorating Cuong Whyte M.D. Aug 11, 2020 18:26
[2020-08-11] MEDS ORDERED: Dyna-Hex 2% Top Sol 2oz TOPIC SCH (20:00)
--- NOTE | 2020-08-12 15:39 | Discharge Summary ---
Discharge Summary Discharge Summary _ SUMMARY DATE OF ADMISSION: 08/08/2020 DATE OF EXPIRATION: 08/11/2020 REASON FOR ADMISSION: 40 years old female with past medical history of alcoholic cirrhosis, varices, portal hypertension, pancreatitis, tobacco abuse, anxiety, presented by ambulance complaining of diffuse abdominal pain for 4 days. Patient also reported shortness of of breath and diffuse swelling, especially in her legs legs along with dyspnea on exertion and generalized fatigue. Patient reported nonbloody diarrhea. She denied chest pain. No fever or chills. No nausea or vomiting. No hematochezia or melena. No hematuria or dysuria. No trauma or r falls. Patient had paracentesis done recently at [facility] , and prior to that paracentesis was done at [facility]. Each time 2 L of fluids were removed , and fluid was negative for infection. Patient reported that she did not drink for 18 days. Prior to that she drank 2 bottles of wine a day for 4 years. She denied prior EGD or colonoscopy . Abdominal exam demonstrated large ascites , but no peritoneal signs. Patient with diffuse anasarca . Severe abnormalities in labs noted, including leukocytosis 15, lactic acid 5. Bicarbonate 20. Patient had evidence of macrocytic anemia and thrombocytopenia .INR 2.3. Patient noted to be in renal failure with creatinine 3.0. Lipase elevated 604 . EKG showed sinus tachycardia , without ischemic changes . CT scan revealed small hiatal hernia, mild to moderate ascites, nonspecific gallbladder sludge. Pancreatic lesion abnormality, which appeared to be increased in size. Although focal pancreatitis/cystic/necrotic change can give this appearance, malignancy was difficult to exclude. Possible enterocolitis. In emergency department patient received empiric antibiotic , thiamine , folate, analgesic. Patient admitted for further management. CONSULTANTS: crm marketing specialist Dr. Boston pulmonary Dr. Mendoza ID specialist Dr. Guidry library technology instructor Dr. Gonzales surgery Dr. Jarvis [facility] COURSE: GI specialist followed. Patient received albumin. Patient was placed on Lasix and Aldactone. Patient received vitamin K . Patient started on lactulose of Xifaxan due to elevated ammonia. Paracentesis was ordered , but was canceled by interventional radiology due to elevated INR. Patient received additional vitamin K. Patient was on Sandostatin drip. GI recommended MRI when more stable . Patient was not stable for EGD . Urine studies were done. Patient received 3% saline trial. Perez catheter was placed. Renal parameters and electrolytes were closely monitored, electrolytes were corrected Renal ultrasound revealed no hydronephrosis or nephrolithiasis. Gallbladder sludge with dilated common bile duct. Large volume ascites. Renal parameters worsened . Sodium stabilized. Hemodialysis catheter was placed on 08/09 and patient started on dialysis. Sinus tachycardia was due to sepsis along with renal failure, hyponatremia and cirrhosis of the liver. There was no evidence of atrial fibrillation , just sinus tachycardia. Echocardiogram revealed ejection fraction of 70%. No evidence of left ventricular hypertrophy. Right ventricular systolic pressure of 38 consistent with a mild pulmonary hypertension. Mild mitral and tricuspid regurgitation. Venous duplex bilateral lower extremity revealed no evidence of acute DVT. Supplemental oxygen provided and titrated to keep pulse oximetry above 92% . Pulmonary toilet provided Blood cultures were negative. Urine culture were negative. COVID-19 by PCR came back negative. Antibiotic provided as per ID specialist recommendation . Leukocytosis trended up , patient also developed fevers. Patient initially was on ceftriaxone , which was changed to micafungin , meropenem and Vanco , given increased leukocytosis and fever. Order was placed to send the ascitic fluid for cell count and differential as well as the bacterial culture to rule out spontaneous bacterial peritonitis from ascites. Counts were closely monitored. Patient received transfusion of 2 units of fresh frozen plasma. INR remain elevated , but trended down from 2.8 to 2.4 after FFP adn vitamin K. Platelet count remains low in the 70s. Hemoglobin upon expiration 7, hematocrit 19.5. On 08/10 patient was emergently intubated. Ventilator support and pulmonary toilet provided. Patient also started on pressors for hemodynamic support. Pressors titrated to keep mean arterial blood pressure above 65 Patient was on dopamine and Levophed. Later phenylephrine added due to hemodynamic instability. Patient was on 3 different pressors , which eventually maximized. Patient was rapidly declining. CODE BLUE was called on 08/11 . ACLS protocol initiated. Despite all resuscitative efforts patient remained in persistent asystole. Patient subsequently was pronounced at 14:15 on 08/10. Cause of : cardiopulmonary arrest FINAL DIAGNOSES: Status post cardiopulmonary arrest Sepsis Shock/septic , hypovolemic Acute on chronic renal failure Alcoholic liver cirrhosis Hyponatremia secondary to third spacing (as result of cirrhosis and ascites) Jaundice Anemia Thrombocytopenia Pancreatitis Pancreatic lesion Enterocolitis UTI Massive ascites ( history of multiply paracentesis ) Tachycardia due to sepsis, renal failure and hyponatremia History of esophageal varices History of ETOH abuse I have been assigned to dictate discharge summary for this account. I was not involved in the patient's management. Mine Carbone NP Aug 12, 2020 15:39
== END 2020-08-11 14:15 | disposition expired | DRG 280 ==
LOC: EDBD 01:43 → EMR 01:55 → 2W 03:05 → EDBEDREQTM 03:07 → EDBEDREQSVC 03:07 → EDBEDREQ 03:51 → 2E 08-10 15:00 → ICU 08-10 19:20
PROC: 009U3ZX Drainage of Spinal Canal, Percutaneous Approach, Diagnostic (ICD-10-PCS; 2020-08-08)
PROC: 30233K1 Transfusion of Nonautologous Frozen Plasma into Peripheral Vein, Percutaneous Approach (ICD-10-PCS; 2020-08-09)
PROC: 05HM33Z Insertion of Infusion Device into Right Internal Jugular Vein, Percutaneous Approach (ICD-10-PCS; 2020-08-09)
PROC: 5A1935Z Respiratory Ventilation, Less than 24 Consecutive Hours (ICD-10-PCS; principal; 2020-08-10)
PROC: 0BH17EZ Insertion of Endotracheal Airway into Trachea, Via Natural or Artificial Opening (ICD-10-PCS; 2020-08-10)
PROC: 30233N1 Transfusion of Nonautologous Red Blood Cells into Peripheral Vein, Percutaneous Approach (ICD-10-PCS; 2020-08-10)
PROC: 5A12012 Performance of Cardiac Output, Single, Manual (ICD-10-PCS; 2020-08-11)
DX: K70.31 Alcoholic cirrhosis of liver with ascites (principal); N17.9 Acute kidney failure, unspecified; D69.6 Thrombocytopenia, unspecified; K85.90 Acute pancreatitis without necrosis or infection, unspecified; A41.9 Sepsis, unspecified organism; R65.21 Severe sepsis with septic shock; R57.8 Other shock; N39.0 Urinary tract infection, site not specified; E46 Unspecified protein-calorie malnutrition; Z68.21 Body mass index [BMI] 21.0-21.9, adult; K76.6 Portal hypertension; F43.10 Post-traumatic stress disorder, unspecified; F41.9 Anxiety disorder, unspecified; K44.9 Diaphragmatic hernia without obstruction or gangrene; I34.0 Nonrheumatic mitral (valve) insufficiency; I36.1 Nonrheumatic tricuspid (valve) insufficiency; N18.9 Chronic kidney disease, unspecified; E87.1 Hypo-osmolality and hyponatremia; K52.9 Noninfective gastroenteritis and colitis, unspecified; F10.11 Alcohol abuse, in remission; K82.8 Other specified diseases of gallbladder; K86.9 Disease of pancreas, unspecified; K76.7 Hepatorenal syndrome
CPT/HCPCS: 36415; 36569; 71045; 74018; 74176; 76770; 76937; 80053; 80061; 80202; 80307; 81003; 82105; 82140; 82150; 82248; 82270; 82550; 82607; 82728; 82746; 82803; 82962; 82977; 83540; 83550; 83605; 83690; 83735; 83880; 83930; 83935; 84100; 84300; 84443; 84484; 84550; 84702; 85007; 85025; 85610; 85651; 85730; 86140; 86706; 86850; 86900; 86901; 86920; 86927; 87040; 87086; 92950; 93005; 93306; 93970; 94002; 96365; 96375; 96376; 99291; G0480; J0171; J2370; J2405; J3430; J7030